=== PATIENT | male | born 1980 | race Caucasian/White ===

== ENCOUNTER → 2016-11-30 | Outpatient (CLI) | payer MEDICARE, OTHER ==
--- NOTE | 2016-11-30 09:20 | XR ---
EXAMINATION TYPE: XR chest 2V DATE OF EXAM: 11/30/2016 9:09 AM COMPARISON: Prior chest x-ray December 10, 2015. HISTORY: Renal cancer. TECHNIQUE: Frontal and lateral views of the chest are obtained. FINDINGS: Improved inspiration is seen on current study. Still somewhat low lung volumes are present. There is no suspicious focal air space opacity, pleural effusion, or pneumothorax seen. Left basila r parenchymal scarring is present. The cardiac silhouette size is within normal limits. Right apical rib anomaly is redemonstrated. Cholecystectomy clips are noted. IMPRESSION: No suspicious acute cardiopulmonary process.
[2016-11-30 09:22] LABS: Blood Urea Nitrogen 12 mg/dL (9-20); Non-African American GFR(MDRD) >60 (>60 ml/min/1.73 sqM)
--- NOTE | 2016-11-30 10:33 | CT ---
EXAMINATION TYPE: CT abdomen w con DATE OF EXAM: 11/30/2016 10:24 AM COMPARISON: CT abdomen and pelvis February 27, 2016 HISTORY: Renal cancer CT DLP: 1436 mGycm, Automated Exposure Control for Dose Reduction was Utilized. CONTRAST: CT scan of the abdomen is performed with oral and with IV Contrast, patient injected with 100 ml mL o f Omnipaque 300. FINDINGS: LUNG BASES: No significant abnormality is appreciated. LIVER/GB: Cholecystectomy clips are redemonstrated. Liver is diffusely low dense suggesting fatty inf iltration.. PANCREAS: No significant abnormality is seen. SPLEEN: No significant abnormality is seen. ADRENALS: No significant abnormality is seen. KIDNEYS: There is no suspicious solid or cystic renal mass on current study. Symmetric cortical medul erin uptake and excretion without evidence of hydronephrosis is evident bilaterally. There is cortica l defect from partial nephrectomy change lower pole level right kidney. BOWEL: Oral contrast reaches level of right colon. There is no suspicious small or large bowel dilata tion seen LYMPH NODES: No greater than 1cm abdominal lymph nodes are appreciated. OSSEOUS STRUCTURES: No significant abnormality is seen. OTHER: No significant additional abnormality is seen. IMPRESSION: Interval treatment of the right lower pole renal neoplasm. No suspicious new mass or timothy opathy is seen to suggest neoplastic recurrence.
== END ==
LOC: RADCTMAIN 08:08
PROVIDERS: ATTEND Urology
DX: C64.1 Malignant neoplasm of right kidney, except renal pelvis (principal)
CPT/HCPCS: 82565; 84520; 71020; 74160; 36415; Q9967

== ENCOUNTER 2017-02-03 14:37 | Emergency (ER) | payer MEDICARE, OTHER ==
[2017-02-03] MEDS ORDERED: SODIUM CHLORIDE 0.9% 1,000 ML IV ONE (15:06)
--- NOTE | 2017-02-03 15:14 | ED ---
Abdominal Pain HPI - General Chief Complaint: Abdominal Pain Stated Complaint: Abd Pain Time Seen by Provider: 02/03/17 14:52 Source: patient, family Mode of arrival: ambulatory Limitations: no limitations - History of Present Illness Initial Comments: This is a 37-year-old male with a history of renal carcinoma, developmental delay and recurrent abdominal pain presents emergency department for central abdominal pain. Going on since yesterday. He is been evaluated for this in the past with unclear etiology. He's also had some nausea and vomiting with it. He states is located in the central abdomen feels a cramping sensation. It seems to be made better with food. Nothing seems to make it worse. He is not currently have any pain. He saw his doctor yesterday who did blood work and sent him home. He's had continued pain and thus is family brought him in the emergency department for evaluation. He states he had a bowel movement earlier today which was normal. Does not complain of any constipation. No dysuria or hematuria. No lightheadedness. He did have an episode of syncope approximately one week ago however also has a history of this. The family thinks that his abdominal pain may be related to anxiety. The patient is going to undergo a new test through his pulmonary physician which he has not completed yet. - Related Data Home Medications Medication Instructions Recorded Confirmed Levothyroxine Sodium [Synthroid] 50 mcg PO DAILY 09/02/14 02/03/17 Omeprazole [PriLOSEC] 20 mg PO AC-BRKFST 02/03/17 02/03/17 Previous Rx's Medication Instructions Recorded Dicyclomine [Bentyl] 10 mg PO QID PRN #20 capsule 02/03/17 Allergies Allergy/AdvReac Type Severity Reaction Status Date / Time No Known Allergies Allergy Verified 02/03/17 15:10 Review of Systems ROS Statement: Those systems with pertinent positive or pertinent negative responses have been documented in the HPI. ROS Other: All systems not noted in ROS Statement are negative. Past Medical History Past Medical History: GERD/Reflux, Memory Impairment, Thyroid Disorder Additional Past Medical History / Comment(s): DEVELOPMENTALLY DELAYED- COGNITIVE FUNCTION AT 11-12 YEAR OLD., MASS RIGHT KIDNEY. History of Any Multi-Drug Resistant Organisms: None Reported Past Surgical History: Cholecystectomy Additional Past Surgical History / Comment(s): unknown abd surgery Past Anesthesia/Blood Transfusion Reactions: No Reported Reaction Past Psychological History: No Psychological Hx Reported Smoking Status: Never smoker Past Alcohol Use History: None Reported Past Drug Use History: None Reported - Past Family History Mother History Unknown: Yes Family Medical History: No Reported History, Unable to Obtain Father Family Medical History: Diabetes Mellitus Additional Family Medical History / Comment(s): neuropathy General Exam - General Exam Comments Initial Comments: Constitutional: Awake alert Appears comfortable Head: Normocephalic atraumatic Eyes: no conjunctival injection No scleral icterus EOMI Neck: No JVD Supple Heart: Tachycardia normal S1-S2 no murmurs Lungs: Clear to auscultation bilaterally No wheezing No rales Abdomen: Soft nondistended nontender Extremities: Non edematous DP pulses intact Radial pulses intact Neuro: A&Ox3 No focal neurologic deficits Psych: Appropriate mood and affect Limitations: no limitations Course Vital Signs 02/03/17 02/03/17 14:48 17:37 Temperature 97 F L 99.0 F Pulse Rate 124 H 95 Respiratory 20 18 Rate Blood Pressure 166/111 133/90 O2 Sat by Pulse 95 95 Oximetry - Reevaluation(s) Reevaluation #1: 02/03/17 16:00 EKG showing sinus tachycardia with a rate of 104. No abnormal ST segment changes or T-wave inversions. QTC is 420. Other intervals are normal. No ectopy. Medical Decision Making - Medical Decision Making Is a 37-year-old male who presented for abdominal cramping. Blood work was reviewed and unremarkable. X-ray did show liquid stool in the colon concerning for diarrhea. Patient had no symptoms on the emergency department. At this time going to send him home on Bentyl. He can follow-up with his primary doctor for further evaluation. I suspected the patient is likely going to start having diarrhea and likely has a viral illness. He can return if he has worsening symptoms or questions are answered. - Lab Data Result diagrams: 02/03/17 16:15 02/03/17 16:15 Lab Results 02/03/17 02/03/17 02/03/17 Range/Units 16:15 16:15 16:45 WBC 9.7 (3.8-10.6) k/uL RBC 5.89 (4.30-5.90) m/uL Hgb 18.5 H (13.0-17.5) gm/dL Hct 54.8 H (39.0-53.0) % MCV 93.0 (80.0-100.0) fL MCH 31.4 (25.0-35.0) pg MCHC 33.8 (31.0-37.0) g/dL RDW 12.8 (11.5-15.5) % Plt Count 256 (150-450) k/uL Neutrophils % 76 % Lymphocytes % 16 % Monocytes % 4 % Eosinophils % 1 % Basophils % 1 % Neutrophils # 7.4 (1.3-7.7) k/uL Lymphocytes # 1.6 (1.0-4.8) k/uL Monocytes # 0.4 (0-1.0) k/uL Eosinophils # 0.1 (0-0.7) k/uL Basophils # 0.1 (0-0.2) k/uL Sodium 145 (137-145) mmol/L Potassium 4.0 (3.5-5.1) mmol/L Chloride 102 (98-107) mmol/L Carbon Dioxide 29 (22-30) mmol/L Anion Gap 14 mmol/L BUN 12 (9-20) mg/dL Creatinine 1.08 (0.66-1.25) mg/dL Est GFR (MDRD) Af Amer >60 (>60 ml/min/1.73 sqM) Est GFR (MDRD) Non-Af >60 (>60 ml/min/1.73 sqM) Glucose 119 H (74-99) mg/dL Calcium 10.0 (8.4-10.2) mg/dL Total Bilirubin 1.0 (0.2-1.3) mg/dL AST 56 (17-59) U/L ALT 75 H (21-72) U/L Alkaline Phosphatase 79 (38-126) U/L Total Protein 8.9 H (6.3-8.2) g/dL Albumin 5.0 (3.5-5.0) g/dL Amylase 46 (30-110) U/L Lipase 66 (23-300) U/L TSH 1.020 (0.465-4.680) mIU/L Urine Color Yellow Urine Appearance Clear (Clear) Urine pH 6.5 (5.0-8.0) Ur Specific [place] 1.016 (1.001-1.035) Urine Protein Trace H (Negative) Urine Glucose (UA) Negative (Negative) Urine Ketones Trace H (Negative) Urine Blood Negative (Negative) Urine Nitrite Negative (Negative) Urine Bilirubin Negative (Negative) Urine Urobilinogen 2.0 (<2.0) mg/dL Ur Leukocyte Esterase Negative (Negative) Disposition Clinical Impression: Abdominal cramping Disposition: HOME SELF-CARE Condition: Stable Instructions: Abdominal Pain (ED) Prescriptions: Dicyclomine [Bentyl] 10 mg PO QID PRN #20 capsule PRN Reason: abdominal cramping Referrals: Gracie Zhao MD [Primary Care Provider] - 1-2 days
[2017-02-03 16:26] LABS: Basophils # (A) 0.1 k/uL (0-0.2); Basophils % (A) 1 %; CH 31.5; Eosinophils # (A) 0.1 k/uL (0-0.7); Eosinophils % (A) 1 %; HCT 54.8 % (39.0-53.0); HDW 2.54; HGB 18.5 gm/dL (13.0-17.5); Luc % (Auto) 1; Lymphocytes # (A) 1.6 k/uL (1.0-4.8); Lymphocytes % (A) 16 %; MCH 31.4 pg (25.0-35.0); MCHC 33.8 g/dL (31.0-37.0); Mean Platelet Volume 6.8; Monocytes # (A) 0.4 k/uL (0-1.0); Monocytes % (A) 4 %; Neutrophils # (A) 7.4 k/uL (1.3-7.7); Neutrophils % (A) 76 %; RBC 5.89 m/uL (4.30-5.90); RDW 12.8 % (11.5-15.5); WBC 9.7 k/uL (3.8-10.6); WBC (Perox) 9.44
[2017-02-03 16:38] LABS: ALT 75 U/L (21-72); AST 56 U/L (17-59); Alkaline Phosphatase 79 U/L (38-126); Amylase 46 U/L (30-110); Anion Gap 14 mmol/L; Blood Urea Nitrogen 12 mg/dL (9-20); Carbon Dioxide 29 mmol/L (22-30); Chloride 102 mmol/L (98-107); Glucose 119 mg/dL (74-99); Non-African American GFR(MDRD) >60 (>60 ml/min/1.73 sqM); Sodium 145 mmol/L (137-145); Total Protein 8.9 g/dL (6.3-8.2)
--- NOTE | 2017-02-03 16:41 | XR ---
EXAMINATION TYPE: XR KUB DATE OF EXAM: 02/03/2017 COMPARISON: 02/27/2016 HISTORY: Abdominal pain TECHNIQUE: 2 views FINDINGS: There are multiple large bowel air-fluid levels. I see no dilated loops. There is no sign o f free air. Lung bases are clear. There are clips from cholecystectomy. There are no pathologic calci fications over the kidneys. IMPRESSION: Large bowel fluid consistent with diarrhea that is new compared to old exam. No free air.
[2017-02-03 17:00] LABS: Appearance,Urine Clear (Clear); Bilirubin,Urine Negative (Negative); Glucose,Urine (UA) Negative (Negative); Ketones,Urine Trace (Negative); Leukocyte Esterase,Urine Negative (Negative); Nitrite,Urine Negative (Negative); PH, Urine 6.5 (5.0-8.0); Protein,Urine Trace (Negative); Specific Gravity,Urine 1.016 (1.001-1.035); UA Billing (MACRO vs. MICRO) CHEM
[2017-02-03 17:38] VITALS: BP 133/90; PULSE 95; RESP 18; TEMP 99
== END 2017-02-03 17:38 | disposition home or self-care (01) ==
LOC: EC 14:37
DX: R10.9 Unspecified abdominal pain (principal); R11.2 Nausea with vomiting, unspecified; R55 Syncope and collapse; K21.9 Gastro-esophageal reflux disease without esophagitis; E07.9 Disorder of thyroid, unspecified; Z79.899 Other long term (current) drug therapy; Z90.49 Acquired absence of other specified parts of digestive tract
CPT/HCPCS: 36415; 74000; 80053; 81003; 82150; 83690; 84443; 85025; 93005; 96360; 99284

== ENCOUNTER 2017-02-08 14:11 | Emergency (ER) | payer MEDICARE, OTHER ==
[2017-02-08] MEDS ORDERED: ONDANSETRON 4 MG/2 ML VIAL IVP STA (15:35)
[2017-02-08] MEDS ORDERED: SODIUM CHLORIDE 0.9% 1,000 ML IV STA (15:35)
--- NOTE | 2017-02-08 15:45 | ED ---
General Adult HPI - General Chief complaint: Abdominal Pain Stated complaint: abdominal pain Time Seen by Provider: 02/08/17 15:25 Source: patient, RN notes reviewed Mode of arrival: ambulatory Limitations: no limitations - History of Present Illness Initial comments: Patient 37-year-old male who presents emergency room today with a chief complaint of abdominal pain. Patient does admit that he does have symptoms of chronic abdominal pain. He states that he has been having increased pain. Does admit that his had decreased appetite. His pain is located in her abdomen worse on the left side. Denies any other complaints or symptoms at this time. - Related Data Home Medications Medication Instructions Recorded Confirmed Levothyroxine Sodium [Synthroid] 50 mcg PO DAILY 09/02/14 02/08/17 Omeprazole [PriLOSEC] 20 mg PO AC-BRKFST 02/03/17 02/08/17 Previous Rx's Medication Instructions Recorded Dicyclomine [Bentyl] 10 mg PO QID PRN #20 capsule 02/03/17 Dicyclomine [Bentyl] 20 mg PO QID #20 tablet 02/08/17 Allergies Allergy/AdvReac Type Severity Reaction Status Date / Time No Known Allergies Allergy Verified 02/08/17 15:36 Review of Systems ROS Statement: Those systems with pertinent positive or pertinent negative responses have been documented in the HPI. ROS Other: All systems not noted in ROS Statement are negative. Past Medical History Past Medical History: GERD/Reflux, Memory Impairment, Thyroid Disorder Additional Past Medical History / Comment(s): DEVELOPMENTALLY DELAYED- COGNITIVE FUNCTION AT 11-12 YEAR OLD., MASS RIGHT KIDNEY. History of Any Multi-Drug Resistant Organisms: None Reported Past Surgical History: Cholecystectomy Additional Past Surgical History / Comment(s): unknown abd surgery Past Anesthesia/Blood Transfusion Reactions: No Reported Reaction Past Psychological History: No Psychological Hx Reported Smoking Status: Never smoker Past Alcohol Use History: None Reported Past Drug Use History: None Reported - Past Family History Mother History Unknown: Yes Family Medical History: No Reported History, Unable to Obtain Father Family Medical History: Diabetes Mellitus Additional Family Medical History / Comment(s): neuropathy General Exam - General Exam Comments Initial Comments: General: The patient is awake and alert, in no distress, and does not appear acutely ill. Eye: Pupils are equal, round and reactive to light, extra-ocular movements are intact. No nystagmus. There is normal conjunctiva bilaterally. No signs of icterus. Ears, nose, mouth and throat: There are moist mucous membranes and no oral lesions. Neck: The neck is supple, there is no tenderness or JVD. Cardiovascular: There is a regular rate and rhythm. No murmur, rub or gallop is appreciated. Respiratory: Lungs are clear to auscultation, respirations are non-labored, breath sounds are equal. No wheezes, stridor, rales, or rhonchi. Gastrointestinal: Bowel sounds present. A Abdomen soft on palpation. Patient does have mild tenderness left side of the abdomen. No rebound tenderness. No guarding. Musculoskeletal: Normal ROM, no tenderness. Strength 5/5. Sensation intact. Pulses equal bilaterally 2+. Neurological: A&O x 3. CN II-XII intact, There are no obvious motor or sensory deficits. Coordination appears grossly intact. Speech is normal. Skin: Skin is warm and dry and no rashes or lesions are noted. Psychiatric: Cooperative, appropriate mood & affect, normal judgment. Limitations: no limitations Course Vital Signs 02/08/17 14:14 Temperature 97.8 F Pulse Rate 108 H Respiratory 20 Rate Blood Pressure 162/90 O2 Sat by Pulse 98 Oximetry Medical Decision Making - Medical Decision Making Patient reexamined at this time and showing no signs of distress. CT is negative for any acute abnormalities. His labs been reviewed. Previous visit to the emergency room results reviewed showing similar findings. CT negative today. Results were discussed with patient. He does admit that symptoms have been chronic. States he has seen GI in the past. Advised to follow-up family doctor and GI. Advised to use previously prescribed medications. They are they 've Bentyl. Advised return for any other concerns. - Lab Data Result diagrams: 02/08/17 15:21 02/08/17 15:21 Lab Results 02/08/17 02/08/17 02/08/17 Range/Units 15:21 15:21 17:45 WBC 7.6 (3.8-10.6) k/uL RBC 5.91 H (4.30-5.90) m/uL Hgb 18.5 H (13.0-17.5) gm/dL Hct 54.7 H (39.0-53.0) % MCV 92.6 (80.0-100.0) fL MCH 31.3 (25.0-35.0) pg MCHC 33.8 (31.0-37.0) g/dL RDW 13.0 (11.5-15.5) % Plt Count 246 (150-450) k/uL Neutrophils % 76 % Lymphocytes % 16 % Monocytes % 5 % Eosinophils % 2 % Basophils % 0 % Neutrophils # 5.8 (1.3-7.7) k/uL Lymphocytes # 1.2 (1.0-4.8) k/uL Monocytes # 0.4 (0-1.0) k/uL Eosinophils # 0.1 (0-0.7) k/uL Basophils # 0.0 (0-0.2) k/uL Sodium 144 (137-145) mmol/L Potassium 4.2 (3.5-5.1) mmol/L Chloride 102 (98-107) mmol/L Carbon Dioxide 30 (22-30) mmol/L Anion Gap 12 mmol/L BUN 15 (9-20) mg/dL Creatinine 1.18 (0.66-1.25) mg/dL Est GFR (MDRD) Af Amer >60 (>60 ml/min/1.73 sqM) Est GFR (MDRD) Non-Af >60 (>60 ml/min/1.73 sqM) Glucose 131 H (74-99) mg/dL Calcium 9.9 (8.4-10.2) mg/dL Total Bilirubin 0.9 (0.2-1.3) mg/dL AST 51 (17-59) U/L ALT 76 H (21-72) U/L Alkaline Phosphatase 72 (38-126) U/L Total Protein 8.6 H (6.3-8.2) g/dL Albumin 4.9 (3.5-5.0) g/dL Amylase 33 (30-110) U/L Lipase 75 (23-300) U/L Urine Color Yellow Urine Appearance Clear (Clear) Urine pH 8.0 (5.0-8.0) Ur Specific [place] 1.046 H (1.001-1.035) Urine Protein Trace H (Negative) Urine Glucose (UA) Negative (Negative) Urine Ketones Negative (Negative) Urine Blood Negative (Negative) Urine Nitrite Negative (Negative) Urine Bilirubin Negative (Negative) Urine Urobilinogen <2.0 (<2.0) mg/dL Ur Leukocyte Esterase Negative (Negative) Disposition Clinical Impression: Abdominal pain Disposition: HOME SELF-CARE Condition: Good Instructions: Abdominal Pain (ED) Additional Instructions: Please use medication as discussed. Please follow-up with GI/family doctor in the next 2 days of symptoms have not improved. Please return to emergency room if the symptoms increase or worsen or for any other concerns. Prescriptions: Dicyclomine [Bentyl] 20 mg PO QID #20 tablet Referrals: Gracie Zhao MD [Primary Care Provider] - 1-2 days Time of Disposition: 18:21
[2017-02-08] MEDS ORDERED: FAMOTIDINE 20 MG/2 ML VIAL IV STA (15:46)
[2017-02-08 16:21] LABS: Basophils % (A) 0 %; CH 31.8; CHCM 34.5; Eosinophils # (A) 0.1 k/uL (0-0.7); Eosinophils % (A) 2 %; HCT 54.7 % (39.0-53.0); HDW 2.53; HGB 18.5 gm/dL (13.0-17.5); Luc # (Auto) 0.08; Luc % (Auto) 1; Lymphocytes # (A) 1.2 k/uL (1.0-4.8); Lymphocytes % (A) 16 %; MCH 31.3 pg (25.0-35.0); MCHC 33.8 g/dL (31.0-37.0); MCV 92.6 fL (80.0-100.0); Monocytes # (A) 0.4 k/uL (0-1.0); Monocytes % (A) 5 %; Neutrophils # (A) 5.8 k/uL (1.3-7.7); Neutrophils % (A) 76 %; RBC 5.91 m/uL (4.30-5.90); WBC 7.6 k/uL (3.8-10.6); WBC (Perox) 8.05
[2017-02-08 16:30] LABS: ALT 76 U/L (21-72); AST 51 U/L (17-59); Alkaline Phosphatase 72 U/L (38-126); Amylase 33 U/L (30-110); Anion Gap 12 mmol/L; Blood Urea Nitrogen 15 mg/dL (9-20); Calcium 9.9 mg/dL (8.4-10.2); Carbon Dioxide 30 mmol/L (22-30); Chloride 102 mmol/L (98-107); Glucose 131 mg/dL (74-99); Non-African American GFR(MDRD) >60 (>60 ml/min/1.73 sqM); Potassium 4.2 mmol/L (3.5-5.1); Sodium 144 mmol/L (137-145); Total Bilirubin 0.9 mg/dL (0.2-1.3); Total Protein 8.6 g/dL (6.3-8.2)
[2017-02-08] MEDS ORDERED: RX INFO: IV CONTRAST WAS GIVEN 1 EACH MISC MISCELLANE PRN (16:56)
--- NOTE | 2017-02-08 17:59 | CT ---
EXAMINATION TYPE: CT abdomen pelvis w con DATE OF EXAM: 02/08/2017 COMPARISON: CT November 30, 2016 HISTORY: Generalized abdominal pain and diarrhea. CT DLP: 1391.20 mGycm. Automated exposure control for dose reduction was used. TECHNIQUE: Helical acquisition of images was performed from the lung bases through the pelvis. CONTRAST: Performed without Oral Contrast and with IV Contrast, patient injected with 100 mL of Omnipaque 300. FINDINGS: LUNG BASES: No significant abnormality is appreciated. LIVER/GB: No significant abnormality is appreciated. PANCREAS: No significant abnormality is seen. SPLEEN: No significant abnormality is seen. ADRENALS: No significant abnormality is seen. KIDNEYS: No significant abnormality is seen. Lower pole right kidney change which was previously note d is redemonstrated without interval change. FREE AIR: No free air is visualized. RETROPERITONEAL ADENOPATHY: None visualized REPRODUCTIVE ORGANS: No significant abnormality is seen URINARY BLADDER: No significant abnormality is seen. PELVIC ADENOPATHY: None visualized. OSSEOUS STRUCTURES: No significant abnormality is seen. BOWEL: No significant abnormality is seen. IMPRESSION: NO ACUTE PROCESS. STABLE APPEARANCE.
[2017-02-08 18:00] LABS: Appearance,Urine Clear (Clear); Bilirubin,Urine Negative (Negative); Glucose,Urine (UA) Negative (Negative); Ketones,Urine Negative (Negative); Leukocyte Esterase,Urine Negative (Negative); Nitrite,Urine Negative (Negative); Protein,Urine Trace (Negative); UA Billing (MACRO vs. MICRO) CHEM; Urobilinogen,Urine <2.0 mg/dL (<2.0)
[2017-02-08 18:21] LABS: Specific Gravity,Urine 1.046 (1.001-1.035)
[2017-02-08 18:33] VITALS: BP 161/96; PULSE 98; RESP 18; TEMP 97.6
== END 2017-02-08 18:33 | disposition home or self-care (01) ==
LOC: EC 14:11 → EEVIPCON 14:11 → EC 18:33
DX: R10.9 Unspecified abdominal pain (principal); G89.29 Other chronic pain; K21.9 Gastro-esophageal reflux disease without esophagitis; E07.9 Disorder of thyroid, unspecified; R62.50 Unspecified lack of expected normal physiological development in childhood; Z79.899 Other long term (current) drug therapy; Z90.49 Acquired absence of other specified parts of digestive tract
CPT/HCPCS: 36415; 80053; 82150; 83690; 85025; 81003; 74177; 99284; 96374; 96375; 96361; J2405; Q9967

== ENCOUNTER 2017-04-18 12:41 | Emergency (ER) | payer MEDICARE, OTHER ==
[2017-04-18] MEDS ORDERED: SODIUM CHLORIDE 0.9% 1,000 ML IV STA (13:03)
--- NOTE | 2017-04-18 13:08 | ED ---
General Adult HPI - General Chief complaint: Abdominal Pain Stated complaint: Abd Pain Time Seen by Provider: 04/18/17 12:57 Source: patient, family, RN notes reviewed, old records reviewed Mode of arrival: ambulatory - History of Present Illness Initial comments: Patient 37-year-old male who presents emergency room today with a chief complaint of lower abdominal pain. He does admit this is been somewhat chronic problem and has been seen GI for this. States been trying Bentyl at home with little relief the symptoms. Patient's father at bedside stating that his had decreased appetite been eating or drinking much over the last 3 days. Patient does admit that this pain is consistent with pain that is had in the past. Admits nausea vomiting and diarrhea. Denies any other complaints or associated symptoms at this time. Patient denies any recent fever, chills, shortness of breath, chest pain, back pain, abdominal pain, nausea or vomiting, numbness or tingling, dysuria or hematuria, constipation or diarrhea, headaches or visual changes, or any other complaints. - Related Data Home Medications Medication Instructions Recorded Confirmed Levothyroxine Sodium [Synthroid] 50 mcg PO DAILY 09/02/14 04/18/17 Omeprazole [PriLOSEC] 20 mg PO AC-BRKFST 02/03/17 04/18/17 Previous Rx's Medication Instructions Recorded Dicyclomine [Bentyl] 20 mg PO QID #20 tablet 02/08/17 Ondansetron Odt [Zofran ODT] 4 mg PO Q8HR PRN #20 tab 04/18/17 Allergies Allergy/AdvReac Type Severity Reaction Status Date / Time No Known Allergies Allergy Verified 04/18/17 13:11 Review of Systems ROS Statement: Those systems with pertinent positive or pertinent negative responses have been documented in the HPI. ROS Other: All systems not noted in ROS Statement are negative. Past Medical History Past Medical History: Cancer, GERD/Reflux, Memory Impairment, Thyroid Disorder Additional Past Medical History / Comment(s): DEVELOPMENTALLY DELAYED- COGNITIVE FUNCTION AT 11-12 YEAR OLD., MASS RIGHT KIDNEY. History of Any Multi-Drug Resistant Organisms: None Reported Past Surgical History: Cholecystectomy Additional Past Surgical History / Comment(s): unknown abd surgery kidney surg Past Anesthesia/Blood Transfusion Reactions: No Reported Reaction Past Psychological History: No Psychological Hx Reported Smoking Status: Never smoker Past Alcohol Use History: None Reported Past Drug Use History: None Reported - Past Family History Mother History Unknown: Yes Family Medical History: No Reported History, Unable to Obtain Father Family Medical History: Diabetes Mellitus Additional Family Medical History / Comment(s): neuropathy General Exam - General Exam Comments Initial Comments: General: The patient is awake and alert, in no distress, and does not appear acutely ill. Eye: Pupils are equal, round and reactive to light, extra-ocular movements are intact. No nystagmus. There is normal conjunctiva bilaterally. No signs of icterus. Ears, nose, mouth and throat: There are moist mucous membranes and no oral lesions. Neck: The neck is supple, there is no tenderness or JVD. Cardiovascular: There is a regular rate and rhythm. No murmur, rub or gallop is appreciated. Respiratory: Lungs are clear to auscultation, respirations are non-labored, breath sounds are equal. No wheezes, stridor, rales, or rhonchi. Gastrointestinal: Soft, non-distended, non-tender abdomen without masses or organomegaly noted. There is no rebound or guarding present. No CVA tenderness. Bowel sounds are unremarkable. Musculoskeletal: Normal ROM, no tenderness. Strength 5/5. Sensation intact. Pulses equal bilaterally 2+. Neurological: A&O x 3. CN II-XII intact, There are no obvious motor or sensory deficits. Coordination appears grossly intact. Speech is normal. Skin: Skin is warm and dry and no rashes or lesions are noted. Psychiatric: Cooperative, appropriate mood & affect, normal judgment. Course Vital Signs 04/18/17 04/18/17 12:44 13:23 Temperature 98.8 F Pulse Rate 105 H 99 Respiratory 18 20 Rate Blood Pressure 147/109 139/91 O2 Sat by Pulse 96 99 Oximetry Medical Decision Making - Medical Decision Making Patient reexamined at this time shows no signs of distress resting comfortably in the stretcher. His labs been reviewed mildly elevated liver enzyme. Patient previously labs shows of this. Patient was seen here in the emergency room on February [address] of the abdomen and pelvis for the same pain at that time which was negative for any acute abnormalities. Patient's remaining labs been reviewed no elevated white count. No fever. Patient resting comfortably at this time. Does have a pineapple plantation manager that they plan on following up with. Advised close follow-up over the next 2 days or return to emergency room if any symptoms increase or worsen or for any other concerns. - Lab Data Result diagrams: 04/18/17 13:14 04/18/17 13:14 Lab Results 04/18/17 04/18/17 04/18/17 Range/Units 13:14 13:14 13:20 WBC 7.8 (3.8-10.6) k/uL RBC 5.97 H (4.30-5.90) m/uL Hgb 18.7 H (13.0-17.5) gm/dL Hct 55.2 H (39.0-53.0) % MCV 92.5 (80.0-100.0) fL MCH 31.3 (25.0-35.0) pg MCHC 33.8 (31.0-37.0) g/dL RDW 14.3 (11.5-15.5) % Plt Count 255 (150-450) k/uL Neutrophils % 72 % Lymphocytes % 20 % Monocytes % 4 % Eosinophils % 2 % Basophils % 1 % Neutrophils # 5.6 (1.3-7.7) k/uL Lymphocytes # 1.5 (1.0-4.8) k/uL Monocytes # 0.3 (0-1.0) k/uL Eosinophils # 0.2 (0-0.7) k/uL Basophils # 0.1 (0-0.2) k/uL Sodium 142 (137-145) mmol/L Potassium 4.4 (3.5-5.1) mmol/L Chloride 104 (98-107) mmol/L Carbon Dioxide 24 (22-30) mmol/L Anion Gap 14 mmol/L BUN 13 (9-20) mg/dL Creatinine 1.06 (0.66-1.25) mg/dL Est GFR (MDRD) Af Amer >60 (>60 ml/min/1.73 sqM) Est GFR (MDRD) Non-Af >60 (>60 ml/min/1.73 sqM) Glucose 107 H (74-99) mg/dL Calcium 9.5 (8.4-10.2) mg/dL Total Bilirubin 1.4 H (0.2-1.3) mg/dL AST 54 (17-59) U/L ALT 92 H (21-72) U/L Alkaline Phosphatase 78 (38-126) U/L Total Protein 8.2 (6.3-8.2) g/dL Albumin 4.7 (3.5-5.0) g/dL Amylase <30 L (30-110) U/L Lipase 75 (23-300) U/L Urine Color Yellow Urine Appearance Clear (Clear) Urine pH 6.5 (5.0-8.0) Ur Specific [place] 1.021 (1.001-1.035) Urine Protein 1+ H (Negative) Urine Glucose (UA) Negative (Negative) Urine Ketones 1+ H (Negative) Urine Blood Negative (Negative) Urine Nitrite Negative (Negative) Urine Bilirubin Negative (Negative) Urine Urobilinogen 6.0 (<2.0) mg/dL Ur Leukocyte Esterase Negative (Negative) Urine RBC 1 (0-5) /hpf Urine WBC 1 (0-5) /hpf Urine Mucus Rare H (None) /hpf Disposition Clinical Impression: Abdominal pain Disposition: HOME SELF-CARE Condition: Good Instructions: Abdominal Pain (ED) Additional Instructions: Please follow-up the family doctor or pineapple plantation manager over the next 1-2 days. Please return to emergency room if any symptoms increase or worsen or for any other concerns. Prescriptions: Ondansetron Odt [Zofran ODT] 4 mg PO Q8HR PRN #20 tab PRN Reason: Nausea Referrals: Gracie Zhao MD [Primary Care Provider] - 1-2 days Yaritza Paul MD [STAFF PHYSICIAN] - 1-2 days Time of Disposition: 14:11
[2017-04-18] MEDS ORDERED: HYDROmorphone 1 MG/ML 1 ML SYRINGE IVP STA (13:17)
[2017-04-18] MEDS ORDERED: ONDANSETRON 4 MG/2 ML VIAL IVP STA (13:17)
[2017-04-18 13:26] LABS: Basophils # (A) 0.1 k/uL (0-0.2); Basophils % (A) 1 %; CH 32.1; CHCM 34.9; Eosinophils # (A) 0.2 k/uL (0-0.7); Eosinophils % (A) 2 %; HCT 55.2 % (39.0-53.0); HDW 2.59; HGB 18.7 gm/dL (13.0-17.5); Luc # (Auto) 0.14; Luc % (Auto) 2; Lymphocytes # (A) 1.5 k/uL (1.0-4.8); Lymphocytes % (A) 20 %; MCH 31.3 pg (25.0-35.0); MCHC 33.8 g/dL (31.0-37.0); MCV 92.5 fL (80.0-100.0); Mean Platelet Volume 7.3; Monocytes # (A) 0.3 k/uL (0-1.0); Monocytes % (A) 4 %; Neutrophils # (A) 5.6 k/uL (1.3-7.7); Neutrophils % (A) 72 %; RBC 5.97 m/uL (4.30-5.90); RDW 14.3 % (11.5-15.5); WBC 7.8 k/uL (3.8-10.6); WBC (Perox) 7.61
[2017-04-18 13:37] LABS: ALT 92 U/L (21-72); AST 54 U/L (17-59); Alkaline Phosphatase 78 U/L (38-126); Amylase <30 U/L (30-110); Anion Gap 14 mmol/L; Blood Urea Nitrogen 13 mg/dL (9-20); Calcium 9.5 mg/dL (8.4-10.2); Carbon Dioxide 24 mmol/L (22-30); Chloride 104 mmol/L (98-107); Glucose 107 mg/dL (74-99); Non-African American GFR(MDRD) >60 (>60 ml/min/1.73 sqM); Potassium 4.4 mmol/L (3.5-5.1); Sodium 142 mmol/L (137-145); Total Bilirubin 1.4 mg/dL (0.2-1.3); Total Protein 8.2 g/dL (6.3-8.2)
[2017-04-18 13:39] VITALS: RESP 20
[2017-04-18 13:39] LABS: Appearance,Urine Clear (Clear); Bilirubin,Urine Negative (Negative); Glucose,Urine (UA) Negative (Negative); Ketones,Urine 1+ (Negative); Leukocyte Esterase,Urine Negative (Negative); Mucus,Urine Rare /hpf; Nitrite,Urine Negative (Negative); PH, Urine 6.5 (5.0-8.0); Particle Count 1601; Protein,Urine 1+ (Negative); RBC,Urine 1 /hpf (0-5); Specific Gravity,Urine 1.021 (1.001-1.035); UA Billing (MACRO vs. MICRO) MICRO; WBC,Urine 1 /hpf (0-5)
--- NOTE | 2017-04-18 14:00 | XR ---
Abdomen HISTORY: Pain and nausea, diarrhea Frontal view of the abdomen on 2 images correlated to prior abdomen 02/03/2017 There is no evident bowel obstruction or pneumoperitoneum. Surgical clips are present in the right up per quadrant. Air-fluid levels are again noted. Lung bases are clear. IMPRESSION: Stable exam. Correlate for enteritis or ileus.
[2017-04-18 14:33] VITALS: BP 128/83; PULSE 96; TEMP 98
== END 2017-04-18 14:33 | disposition home or self-care (01) ==
LOC: EC 12:41
DX: R10.30 Lower abdominal pain, unspecified (principal); R11.2 Nausea with vomiting, unspecified; R19.7 Diarrhea, unspecified; K21.9 Gastro-esophageal reflux disease without esophagitis; E07.9 Disorder of thyroid, unspecified; C80.1 Malignant (primary) neoplasm, unspecified; Z90.49 Acquired absence of other specified parts of digestive tract; Z98.890 Other specified postprocedural states; Z79.899 Other long term (current) drug therapy
CPT/HCPCS: 99284 ×2; 96374 ×2; 96375 ×2; 96361 ×2; 36415; 80053; 82150; 83690; 85025; 81001; 74000; J2405; J1170

== ENCOUNTER 2017-05-06 09:34 | Day surgery (SDC) | payer MEDICARE, OTHER ==
[2017-05-05 08:42] VITALS: BMI 26.2
[~2017-05-06 09:34] MED LIST: DEXAMETHASONE SOD PHOSPHATE 10 MG/ML 1 ML VIAL IV ONE; HYDROmorphone 1 MG/ML 1 ML SYRINGE IVP PRN; LACTATED RINGERS 1,000 ML IV SCH; LIDOCAINE 1% 20 ML VIAL (10MG/ML) FOR IV START INTRADERMA PRN; MIDAZOLAM 2 MG/2 ML VIAL IV PRN; ONDANSETRON 4 MG/2 ML VIAL IVP ONE; SCOPOLAMINE 1.5MG/72HR PATCH TRANSDERM ONE
[2017-05-06] MEDS ORDERED: MIDAZOLAM 2 MG/2 ML VIAL ONE (10:37)
[2017-05-06] MEDS ORDERED: PROPOFOL 10 MG/ML 20 ML VIAL IV ONE (10:37)
[2017-05-06] MEDS ORDERED: LIDOCAINE 1% INJ 10MG/ML (20 ML MDV) ONE (10:37)
[2017-05-06 10:38] VITALS: RESP 16; TEMP 97.2
--- NOTE | 2017-05-06 10:58 | P.PCN ---
Date of Procedure: 05/06/17 Preoperative Diagnosis: Postoperative Diagnosis: Procedure(s) Performed: Brief history: Patient is a pleasant 37-year-old white male, scheduled for an elective upper endoscopy as well as colonoscopy as a part of evaluation of abdominal pain, for the last several years duration. Pain is mostly in the periampullary area and occasional epigastric area and lasts for 2-3 hours and gradually resolves. He was started on Bentyl without much help. He was treated with Prilosec in the past with no resolution of his symptoms. He has noticed some change in bowel habits also. He is hence scheduled for endoscopy workup today. Procedure performed: Esophagogastroduodenoscopy with biopsy Colonoscopy with biopsy Preoperative diagnosis: Abdominal pain Change in bowel habits Anesthesia: MAC Procedure: After informed consent was obtained from the patient was brought into the endoscopy unit and IV sedation was administered by anesthesia under continuous monitoring. Initially upper endoscopy was done. The Olympus GF 160 video endoscope was inserted inserted into the mouth and esophagus intubated without any difficulty and was gradually advanced into the stomach and duodenum and carefully examined. The bulb and second part of the duodenum appeared normal. Biopsies were done from this area to rule out celiac disease. The scope was then withdrawn into the stomach adequately insufflated with air and upon careful examination the antrum and body, had diffuse gastritis and biopsies were done from this area. The cardia and fundus appeared normal. The scope was then withdrawn into the esophagus. The GE junction was located at 40 cm to the incisors. It appeared regular with no erythema erosions or ulcerations. Rest of the esophagus appeared normal. Patient tolerated the procedure well. At this time the patient continued to remain sedation. Initial digital rectal examination was normal. Olympus CF 160 video colonoscope was then inserted into the rectum and gradually advanced to the cecum without any difficulty. Careful examination was performed as the scope was gradually being withdrawn. The prep was excellent. The cecum, ascending colon, transverse colon, descending colon, sigmoid colon and rectum appeared normal. Random biopsies were done from the ascending and descending colon to rule out microscopic/ collagenous colitis. Retroflexion was performed in the rectum and small internal hemorrhoids were noted. Patient tolerated the procedure well. Impression: 1. Upper endoscopy revealed mild diffuse gastritis but no evidence of esophagitis or peptic ulcer disease 2.. Colonoscopy was essentially within normal limits with no evidence of colitis or colorectal neoplasia. Recommendations: Findings of this examination were discussed with the patient as well as his family. He was advised to follow with the biopsy results. He'll be seen in the office in 2-3 weeks. Implants: Indications for Procedure: Operative Findings: Description of Procedure:
[2017-05-06 11:18] LABS: ALT 84 U/L (21-72); AST 58 U/L (17-59); Alkaline Phosphatase 72 U/L (38-126); Bilirubin, Delta 0.4 mg/dL (0.0-0.2); Total Bilirubin 1.2 mg/dL (0.2-1.3); Total Protein 8.4 g/dL (6.3-8.2)
[2017-05-06 11:19] VITALS: BP 138/97; PULSE 100
[2017-05-06 11:47] LABS: Hepatitis B Surface Ag Index 0.07
[2017-05-06 11:52] LABS: Hepatitis B Core IgM Index 0.02
[2017-05-06 12:04] LABS: Hepatitis C Virus IgG Ab Negative (Negative); Hepatitis C Virus IgG Index 0.05
== END 2017-05-06 11:47 | disposition home or self-care (01) ==
LOC: ORWHC2ENDO 09:34
PROVIDERS: ATTEND Internal Medicine Gastroenterology
DX: K29.70 Gastritis, unspecified, without bleeding (principal); R19.4 Change in bowel habit; K21.9 Gastro-esophageal reflux disease without esophagitis; E07.9 Disorder of thyroid, unspecified; R62.50 Unspecified lack of expected normal physiological development in childhood; Z79.899 Other long term (current) drug therapy
CPT/HCPCS: 88305; 80076; 80074; 88342; 45380; 43239; J2250; J2001; J2704

== ENCOUNTER → 2017-06-07 | Outpatient (CLI) | payer MEDICARE, OTHER ==
--- NOTE | 2017-06-07 09:25 | US ---
EXAMINATION TYPE: US abdomen complete DATE OF EXAM: 06/07/2017 COMPARISON: NONE CLINICAL HISTORY: 37-year-old male with abdominal Pain R10.9. Patient is poor historian, cholecystect mityz. TECHNIQUE: Multiple sonographic images of the abdomen are obtained. FINDINGS: [employer]ER NOTES: limited exam due to bowel gas and patient limitations, see notes above in the h istory. Liver Length: 16.5 cm Gallbladder Wall: Surgically absent CBD: 5.8 mm Spleen: 11.2 cm Right Kidney: 9.5 x 4.3 x 5.6 cm Left Kidney: 10.6 x 3.9 x 5.0 cm Pancreas: unable to see due to bowel gas Liver: limited intercostal views show increased echogenicity relative to the adjacent right kidney. Gallbladder: Surgically absent Evidence for sonographic Villatoro's sign: no CBD: Upper limits of normal in caliber which is expected given postcholecystectomy status. Spleen: wnl Right Kidney: No hydronephrosis Left Kidney: limited view due to reason stated above. No evident hydronephrosis. Upper IVC: Suboptimal visualization Abd Aorta: limited due to bowel gas IMPRESSION: 1. Exam limitations as above. The limited intercostal views of the liver show underlying hepatic stea tosis. Correlate with LFTs, profile, and patient risk factors. 2. Status post cholecystectomy. Bile duct is normal caliber given postcholecystectomy status (5.8 mm) .
== END | disposition home or self-care (01) ==
LOC: RADUSWWP 08:23
PROVIDERS: ATTEND Internal Medicine Gastroenterology
DX: K76.0 Fatty (change of) liver, not elsewhere classified (principal); Z90.49 Acquired absence of other specified parts of digestive tract
CPT/HCPCS: 76700

== ENCOUNTER 2017-06-17 08:56 | Emergency (ER) | payer MEDICARE, OTHER ==
[2017-06-17 09:02] VITALS: RESP 18
[2017-06-17] MEDS ORDERED: DICYCLOMINE 10 MG/ML 2 ML AMP IM STA (09:09)
[2017-06-17] MEDS ORDERED: SODIUM CHLORIDE 0.9% 1,000 ML IV STA (09:09)
--- NOTE | 2017-06-17 09:14 | ED ---
General Adult HPI - General Chief complaint: Abdominal Pain Stated complaint: ABDOMINAL PAIN, DIZZINESS, SHAKING Time Seen by Provider: 06/17/17 09:04 Source: patient, RN notes reviewed Mode of arrival: wheelchair Limitations: no limitations - History of Present Illness Initial comments: 37-year-old male presents to the emergency Department chief complaint of lower abdominal cramping. Patient has had cramping in his abdomen ever since lunch yesterday with ham sandwich. They state that he is complaining that he just kind of feels off today and he complains of abdominal pain. They state there has been some loose stool. There is no vomiting. They state that he has been told in the past that he possibly is increasing bowel syndrome. The family is a poor historian as well as patient. Patient denies any chest pain or shortness of breath. He states that he just feels off and his abdomen is causing him some pain. Patient denies any recent fever, chills, shortness of breath, chest pain, back pain, nausea vomiting, numbness or tingling, dysuria or hematuria, constipation, headaches or visual changes, or any other current symptoms. - Related Data Home Medications Medication Instructions Recorded Confirmed Levothyroxine Sodium [Synthroid] 50 mcg PO DAILY 09/02/14 06/17/17 Omeprazole [PriLOSEC] 20 mg PO AC-[id number] 02/03/17 06/17/17 Dicyclomine [Bentyl] 20 mg PO TID 06/17/17 06/17/17 Ergocalciferol [Vitamin D2] 50,000 unit PO TINOCO 06/17/17 06/17/17 Previous Rx's Medication Instructions Recorded Dicyclomine [Bentyl] 10 mg PO TID #20 capsule 06/17/17 Ondansetron Odt [Zofran ODT] 4 mg PO Q8HR PRN #20 tab 06/17/17 Allergies Allergy/AdvReac Type Severity Reaction Status Date / Time No Known Allergies Allergy Verified 06/17/17 09:15 Review of Systems ROS Statement: Those systems with pertinent positive or pertinent negative responses have been documented in the HPI. ROS Other: All systems not noted in ROS Statement are negative. 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 ABDOMINAL PAIN , KIDNEY CANCER History of Any Multi-Drug Resistant Organisms: None Reported Past Surgical History: Cholecystectomy Additional Past Surgical History / Comment(s): KIDNEY SURGERY-MASS REMOVED Past Anesthesia/Blood Transfusion Reactions: Previous Problems w/ Anesthesia Additional Past Anesthesia/Blood Transfusion Reaction / Comment(s): DIFFICULT INTUBATION - WILL BRING LETTER Past Psychological History: No Psychological Hx Reported Smoking Status: Never smoker Past Alcohol Use History: None Reported Past Drug Use History: None Reported - Past Family History Mother History Unknown: Yes Family Medical History: No Reported History Father Family Medical History: Diabetes Mellitus Additional Family Medical History / Comment(s): neuropathy General Exam - General Exam Comments Initial Comments: General: The patient is awake and alert, in no distress, and does not appear acutely ill. Eye: Pupils are equal, round and reactive to light, extra-ocular movements are intact; there is normal conjunctiva bilaterally. No signs of icterus. Ears, nose, mouth and throat: There are moist mucous membranes and no oral lesions. Neck: The neck is supple, there is no tenderness. Cardiovascular: There is a regular rate and rhythm. No murmur, rub or gallop is appreciated. Respiratory: Lungs are clear to auscultation, respirations are non-labored, breath sounds are equal. No wheezes, stridor, rales, or rhonchi. Gastrointestinal: Soft, non-distended, non-tender abdomen without masses or organomegaly noted. There is no rebound or guarding present. No CVA tenderness. Bowel sounds are unremarkable. Back: There is no tenderness to palpation in the midline. There is no obvious deformity. No rashes noted. Musculoskeletal: Normal ROM, no tenderness, There is no pedal edema. There is no calf tenderness or swelling. Sensation intact. Pulses equal bilaterally 2+. Neurological: CN II-XII intact, There are no obvious motor or sensory deficits. Coordination appears grossly intact. Speech is normal. Skin: Skin is warm and dry and no rashes or lesions are noted. Psychiatric: Cooperative, appropriate mood & affect, normal judgment. Limitations: no limitations Course Vital Signs 06/17/17 08:57 Temperature 97.8 F Pulse Rate 100 Respiratory 18 Rate Blood Pressure 154/97 O2 Sat by Pulse 97 Oximetry Medical Decision Making - Medical Decision Making 37-year-old male presents emergency room chief complaint of abdominal pain. At this time patient is in the room and resting comfortably. Imaging and lab work is been reviewed. This time we discussed patient's symptoms and results are consistent with possible enteritis. We did discuss other etiologies however. We discussed return parameters and follow-up and all the questions. He stated he understood and they are in agreement this plan. They'll be discharged. - Lab Data Result diagrams: 06/17/17 09:55 06/17/17 09:55 Lab Results 06/17/17 06/17/17 06/17/17 Range/Units 09:55 09:55 11:04 WBC 6.3 (3.8-10.6) k/uL RBC 5.30 (4.30-5.90) m/uL Hgb 16.4 (13.0-17.5) gm/dL Hct 48.4 (39.0-53.0) % MCV 91.2 (80.0-100.0) fL MCH 31.0 (25.0-35.0) pg MCHC 34.0 (31.0-37.0) g/dL RDW 12.6 (11.5-15.5) % Plt Count 222 (150-450) k/uL Neutrophils % 75 % Lymphocytes % 15 % Monocytes % 5 % Eosinophils % 3 % Basophils % 1 % Neutrophils # 4.8 (1.3-7.7) k/uL Lymphocytes # 1.0 (1.0-4.8) k/uL Monocytes # 0.3 (0-1.0) k/uL Eosinophils # 0.2 (0-0.7) k/uL Basophils # 0.0 (0-0.2) k/uL Sodium 140 (137-145) mmol/L Potassium 4.2 (3.5-5.1) mmol/L Chloride 102 (98-107) mmol/L Carbon Dioxide 28 (22-30) mmol/L Anion Gap 10 mmol/L BUN 9 (9-20) mg/dL Creatinine 1.08 (0.66-1.25) mg/dL Est GFR (MDRD) Af Amer >60 (>60 ml/min/1.73 sqM) Est GFR (MDRD) Non-Af >60 (>60 ml/min/1.73 sqM) Glucose 92 (74-99) mg/dL Calcium 9.0 (8.4-10.2) mg/dL Total Bilirubin 0.7 (0.2-1.3) mg/dL AST 43 (17-59) U/L ALT 68 (21-72) U/L Alkaline Phosphatase 68 (38-126) U/L Total Protein 7.4 (6.3-8.2) g/dL Albumin 4.2 (3.5-5.0) g/dL Amylase <30 L (30-110) U/L Lipase 39 (23-300) U/L Urine Color Light Yellow Urine Appearance Clear (Clear) Urine pH 7.0 (5.0-8.0) Ur Specific [place] 1.003 (1.001-1.035) Urine Protein Negative (Negative) Urine Glucose (UA) Negative (Negative) Urine Ketones Negative (Negative) Urine Blood Negative (Negative) Urine Nitrite Negative (Negative) Urine Bilirubin Negative (Negative) Urine Urobilinogen <2.0 (<2.0) mg/dL Ur Leukocyte Esterase Negative (Negative) - Radiology Data Radiology results: report reviewed, image reviewed Disposition Clinical Impression: Abdominal pain Disposition: HOME SELF-CARE Condition: Stable Instructions: Abdominal Pain (ED) Additional Instructions: Please use medication as discussed. Please follow up with family doctor if symptoms have not improved over the next two days. Please return to the emergency room if your symptoms increase or worsen or for any other concerns. Prescriptions: Dicyclomine [Bentyl] 10 mg PO TID #20 capsule Ondansetron Odt [Zofran ODT] 4 mg PO Q8HR PRN #20 tab PRN Reason: Nausea Referrals: Gracie Zhao MD [Primary Care Provider] - 1-2 days Time of Disposition: 11:34
[2017-06-17 10:09] LABS: Basophils % (A) 1 %; CH 31.3; CHCM 34.4; Eosinophils # (A) 0.2 k/uL (0-0.7); Eosinophils % (A) 3 %; HCT 48.4 % (39.0-53.0); HDW 2.58; HGB 16.4 gm/dL (13.0-17.5); Luc # (Auto) 0.09; Luc % (Auto) 1; Lymphocytes % (A) 15 %; MCV 91.2 fL (80.0-100.0); Mean Platelet Volume 6.8; Monocytes # (A) 0.3 k/uL (0-1.0); Monocytes % (A) 5 %; Neutrophils # (A) 4.8 k/uL (1.3-7.7); Neutrophils % (A) 75 %; RDW 12.6 % (11.5-15.5); WBC 6.3 k/uL (3.8-10.6); WBC (Perox) 5.84
[2017-06-17 10:13] LABS: ALT 68 U/L (21-72); AST 43 U/L (17-59); Alkaline Phosphatase 68 U/L (38-126); Amylase <30 U/L (30-110); Anion Gap 10 mmol/L; Blood Urea Nitrogen 9 mg/dL (9-20); Carbon Dioxide 28 mmol/L (22-30); Chloride 102 mmol/L (98-107); Glucose 92 mg/dL (74-99); Non-African American GFR(MDRD) >60 (>60 ml/min/1.73 sqM); Potassium 4.2 mmol/L (3.5-5.1); Sodium 140 mmol/L (137-145); Total Bilirubin 0.7 mg/dL (0.2-1.3); Total Protein 7.4 g/dL (6.3-8.2)
--- NOTE | 2017-06-17 11:09 | XR ---
EXAMINATION TYPE: XR abdomen 2V DATE OF EXAM: 06/17/2017 CLINICAL DATA: 37 year-old male lower stomach pain with diarrhea, [facility] COMPARISON: 04/18/2017 FINDINGS: Lung bases are clear. No evidence for free intraperitoneal air. No dilated small bowel. There are air-fluid levels within the right hemicolon. No abnormal colonic di latation. Cholecystectomy clips. Pelvic phlebolith are unchanged. IMPRESSION: 1. No evidence of bowel obstruction or free intraperitoneal air. 2. Air-fluid levels in the right hemicolon. Correlate for enteritis or regional ileus.
[2017-06-17 11:22] LABS: Appearance,Urine Clear (Clear); Bilirubin,Urine Negative (Negative); Glucose,Urine (UA) Negative (Negative); Ketones,Urine Negative (Negative); Leukocyte Esterase,Urine Negative (Negative); Nitrite,Urine Negative (Negative); Protein,Urine Negative (Negative); Specific Gravity,Urine 1.003 (1.001-1.035); UA Billing (MACRO vs. MICRO) CHEM; Urobilinogen,Urine <2.0 mg/dL (<2.0)
[2017-06-17 12:04] VITALS: BP 142/91; PULSE 90; TEMP 97.9
== END 2017-06-17 11:45 | disposition home or self-care (01) ==
LOC: EC 08:56
DX: R10.30 Lower abdominal pain, unspecified (principal); R42 Dizziness and giddiness; K21.9 Gastro-esophageal reflux disease without esophagitis; E07.9 Disorder of thyroid, unspecified; Z85.528 Personal history of other malignant neoplasm of kidney; Z90.49 Acquired absence of other specified parts of digestive tract; Z79.899 Other long term (current) drug therapy
CPT/HCPCS: 99284 ×2; 96372 ×2; 96360 ×2; 36415; 80053; 82150; 83690; 85025; 81003; 74020; J0500

== ENCOUNTER → 2017-11-01 | Outpatient (CLI) | payer MEDICARE, OTHER ==
[2017-11-01 13:08] LABS: Albumin 4.6 g/dL (3.5-5.0); Bilirubin, Delta 0.3 mg/dL (0.0-0.2); Bilirubin,Unconjugated 0.4 mg/dL (0.0-1.1); Total Bilirubin 0.7 mg/dL (0.2-1.3); Total Protein 7.8 g/dL (6.3-8.2)
== END | disposition home or self-care (01) ==
LOC: LABWHC1 12:23
PROVIDERS: ATTEND Physician Assistant
DX: R94.5 Abnormal results of liver function studies (principal)
CPT/HCPCS: 36415; 80076

== ENCOUNTER 2017-11-04 20:39 | Emergency (ER) | payer MEDICARE, OTHER ==
[2017-11-04] MEDS ORDERED: MECLIZINE 12.5 MG TAB PO STA (21:25)
[2017-11-04] MEDS ORDERED: SODIUM CHLORIDE 0.9% 500 ML IV ONE (21:25)
--- NOTE | 2017-11-04 21:28 | ED ---
Dizziness HPI - General Chief Complaint: Dizziness Stated Complaint: lightheaded Time Seen by Provider: 11/04/17 21:16 Source: patient, family Mode of arrival: ambulatory Limitations: no limitations - History of Present Illness Initial Comments: 37 year-old male patient presents with father for evaluation after experiencing dizziness for the last 2-3 hours. Patient states that he was at a hockey game when he started to feel dizzy. Patient states that he feels as though he is spinning around. States he feels very lightheaded. States that he did have similar episode a couple of weeks ago. Did see his doctor was started on some blood pressure medication, he is unable to recall the name of the medication. He states that sometimes in the morning when he stands up he becomes dizzy. He is also reporting a mild frontal headache. He denies any shortness of breath or chest pain with this. Denies any ear pain, nasal congestion, cough, or sore throat. He denies any abdominal pain, nausea, or vomiting with this. Patient denies any recent rash, fever, chills, back pain, numbness, tingling, dizziness , weakness, hematuria, dysuria, urinary urgency, urinary frequency, headache, visual changes, or any other complaints. - Related Data Home Medications Medication Instructions Recorded Confirmed Levothyroxine Sodium [Synthroid] 50 mcg PO DAILY 09/02/14 11/04/17 Omeprazole [PriLOSEC] 20 mg PO DAILY 02/03/17 11/04/17 Cholecalciferol [Vitamin D3] 1,000 unit PO DAILY 11/04/17 11/04/17 Metoprolol Tartrate [Lopressor] 12.5 mg PO BID 11/04/17 11/04/17 Allergies Allergy/AdvReac Type Severity Reaction Status Date / Time No Known Allergies Allergy Verified 11/04/17 21:45 Review of Systems ROS Statement: Those systems with pertinent positive or pertinent negative responses have been documented in the HPI. ROS Other: All systems not noted in ROS Statement are negative. 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 ABDOMINAL PAIN , KIDNEY CANCER History of Any Multi-Drug Resistant Organisms: None Reported Past Surgical History: Cholecystectomy Additional Past Surgical History / Comment(s): KIDNEY SURGERY-MASS REMOVED Past Anesthesia/Blood Transfusion Reactions: Previous Problems w/ Anesthesia Additional Past Anesthesia/Blood Transfusion Reaction / Comment(s): DIFFICULT INTUBATION - WILL BRING LETTER Past Psychological History: No Psychological Hx Reported Smoking Status: Never smoker Past Alcohol Use History: None Reported Past Drug Use History: None Reported - Past Family History Mother History Unknown: Yes Family Medical History: No Reported History Father Family Medical History: Diabetes Mellitus Additional Family Medical History / Comment(s): neuropathy General Exam Limitations: no limitations General appearance: alert, in no apparent distress, other (Physical well- developed, well-nourished male patient in no acute distress. Vital signs upon presentation are pulse 181, respirations 18, blood pressure 173/93, pulse ox 98 % on room air.) Eye exam: Present: normal appearance, PERRL, EOMI. Absent: scleral icterus, conjunctival injection, nystagmus, periorbital swelling ENT exam: Present: normal exam, normal oropharynx, mucous membranes moist Respiratory exam: Present: normal lung sounds bilaterally. Absent: respiratory distress, wheezes, rales, rhonchi, stridor Cardiovascular Exam: Present: regular rate, normal rhythm, normal heart sounds. Absent: systolic murmur, diastolic murmur, rubs, gallop, clicks GI/Abdominal exam: Present: soft, normal bowel sounds. Absent: distended, tenderness, guarding, rebound, rigid Neurological exam: Present: alert, oriented X3, CN II-XII intact, other ( Strength in all 4 extremities is 5/5) Psychiatric exam: Present: normal affect, normal mood Skin exam: Present: warm, dry, intact, normal color. Absent: rash Course Vital Signs 11/04/17 11/04/17 11/04/17 20:59 22:00 22:45 Temperature Pulse Rate 81 90 Pulse Rate [ 88 Sitting] Pulse Rate [ 93 Standing] Pulse Rate [ 85 Supine] Respiratory 18 15 Rate Blood Pressure 173/93 133/73 Blood Pressure 151/98 [Right Arm Sitting] Blood Pressure 160/100 [Right Arm Standing] Blood Pressure 142/85 [Right Arm Supine] O2 Sat by Pulse 98 95 Oximetry 11/04/17 11/04/17 23:08 23:15 Temperature 97.6 F Pulse Rate 80 85 Pulse Rate [ Sitting] Pulse Rate [ Standing] Pulse Rate [ Supine] Respiratory 18 18 Rate Blood Pressure 135/77 130/81 Blood Pressure [Right Arm Sitting] Blood Pressure [Right Arm Standing] Blood Pressure [Right Arm Supine] O2 Sat by Pulse 96 96 Oximetry EKG Findings - EKG Comments: EKG Findings:: EKG shows normal sinus rhythm possible LVH. Ventricular rate is 85, NH interval 164, QRS duration 82, QT 346, QTC 411. No ST elevation or depression. Medical Decision Making - Medical Decision Making 37-year-old male patient presents to the emergency department today for evaluation of dizziness 2-3 hours. Physical examination is unremarkable. Patient is neurologically intact. We did perform labs which were unremarkable. EKG was normal sinus rhythm. Orthostatic vital signs are unremarkable. Patient did receive Antivert and IV fluids here in the department. Upon reexamination patient is feeling better and states his dizziness is resolved. We did discuss use of his new blood pressure medication and importance of follow -up with his primary care physician. He is instructed to return here immediately for any new, worsening, or concerning symptoms. He verbalizes understanding and agrees with this plan. - Lab Data Result diagrams: 11/04/17 21:39 11/04/17 21:39 Lab Results 11/04/17 11/04/17 Range/Units 21:39 21:39 WBC 9.8 (3.8-10.6) k/uL RBC 5.72 (4.30-5.90) m/uL Hgb 17.3 (13.0-17.5) gm/dL Hct 51.2 (39.0-53.0) % MCV 89.5 (80.0-100.0) fL MCH 30.2 (25.0-35.0) pg MCHC 33.8 (31.0-37.0) g/dL RDW 12.5 (11.5-15.5) % Plt Count 259 (150-450) k/uL Neutrophils % 71 % Lymphocytes % 18 % Monocytes % 6 % Eosinophils % 3 % Basophils % 1 % Neutrophils # 7.0 (1.3-7.7) k/uL Lymphocytes # 1.8 (1.0-4.8) k/uL Monocytes # 0.6 (0-1.0) k/uL Eosinophils # 0.3 (0-0.7) k/uL Basophils # 0.1 (0-0.2) k/uL Sodium 143 (137-145) mmol/L Potassium 4.1 (3.5-5.1) mmol/L Chloride 99 (98-107) mmol/L Carbon Dioxide 33 H (22-30) mmol/L Anion Gap 11 mmol/L BUN 10 (9-20) mg/dL Creatinine 1.00 (0.66-1.25) mg/dL Est GFR (CKD-EPI)AfAm >90 (>60 ml/min/1.73 sqM) Est GFR (CKD-EPI)NonAf >90 (>60 ml/min/1.73 sqM) Glucose 140 H (74-99) mg/dL Calcium 9.9 (8.4-10.2) mg/dL Total Bilirubin 0.4 (0.2-1.3) mg/dL AST 30 (17-59) U/L ALT 48 (21-72) U/L Alkaline Phosphatase 77 (38-126) U/L Total Protein 7.9 (6.3-8.2) g/dL Albumin 4.5 (3.5-5.0) g/dL Disposition Clinical Impression: Dizziness Disposition: HOME SELF-CARE Condition: Good Instructions: Dizziness (ED) Additional Instructions: Stopped taking her blood pressure medication follow-up with your primary care physician as soon as possible. Return here immediately for any new, worsening, or concerning symptoms. Referrals: Gracie Zhao MD [Primary Care Provider] - 1-2 days Time of Disposition: 23:00
[2017-11-04 21:53] LABS: Basophils # (A) 0.1 k/uL (0-0.2); Basophils % (A) 1 %; Eosinophils # (A) 0.3 k/uL (0-0.7); Eosinophils % (A) 3 %; HCT 51.2 % (39.0-53.0); HGB 17.3 gm/dL (13.0-17.5); Lymphocytes # (A) 1.8 k/uL (1.0-4.8); Lymphocytes % (A) 18 %; MCH 30.2 pg (25.0-35.0); MCHC 33.8 g/dL (31.0-37.0); MCV 89.5 fL (80.0-100.0); Mean Platelet Volume 7.1; Monocytes # (A) 0.6 k/uL (0-1.0); Monocytes % (A) 6 %; Neutrophils % (A) 71 %; Platelet Count 259 k/uL (150-450); RBC 5.72 m/uL (4.30-5.90); RDW 12.5 % (11.5-15.5); WBC 9.8 k/uL (3.8-10.6)
[2017-11-04 22:08] LABS: ALT 48 U/L (21-72); AST 30 U/L (17-59); Albumin 4.5 g/dL (3.5-5.0); Alkaline Phosphatase 77 U/L (38-126); Anion Gap 11 mmol/L; Blood Urea Nitrogen 10 mg/dL (9-20); Calcium 9.9 mg/dL (8.4-10.2); Carbon Dioxide 33 mmol/L (22-30); Chloride 99 mmol/L (98-107); Glucose 140 mg/dL (74-99); Potassium 4.1 mmol/L (3.5-5.1); Sodium 143 mmol/L (137-145); Total Bilirubin 0.4 mg/dL (0.2-1.3); Total Protein 7.9 g/dL (6.3-8.2)
[2017-11-04 23:10] VITALS: RESP 18
[2017-11-04 23:23] VITALS: BP 130/81; PULSE 85; TEMP 97.6
== END 2017-11-04 23:15 | disposition home or self-care (01) ==
LOC: EC 20:39
DX: R42 Dizziness and giddiness (principal); R51 Headache; E07.9 Disorder of thyroid, unspecified; K21.9 Gastro-esophageal reflux disease without esophagitis; Z85.528 Personal history of other malignant neoplasm of kidney; Z79.899 Other long term (current) drug therapy
CPT/HCPCS: 36415; 80053; 85025; 93005; 96360; 99284

== ENCOUNTER → 2017-11-25 | Outpatient (CLI) | payer MEDICARE, OTHER ==
--- NOTE | 2017-11-25 14:49 | MR ---
EXAMINATION TYPE: MR brain wo con DATE OF EXAM: 11/25/2017 COMPARISON: NONE HISTORY: Essential Hypertension /intermittent lightheadedness per order. TECHNIQUE: Multiplanar, multisequence imaging of the brain and brainstem is performed without IV cont rast. FINDINGS: Diffusion weighted images demonstrate no evidence of a recent infarct or other diffusion abnormality. There is no extraaxial fluid collection or significant white matter signal abnormality. The ventricu lar system and cisternal spaces are normal in size and appearance. The brain volume is age appropria te. Midline structures demonstrate normal morphology. The craniocervical junction appears within normal limits. Normal vascular flow voids are present. Tortuous course to distal left vertebral artery is in cidentally seen. The visualized sinuses are clear and the globes are intact. No suspicious fluid sign al seen in mastoid air cells bilaterally. IMPRESSION: No significant finding is seen to account for patient's symptoms.
== END | disposition home or self-care (01) ==
LOC: RADMRIMAIN 13:41
PROVIDERS: ATTEND Family Medicine
DX: R42 Dizziness and giddiness (principal); I10 Essential (primary) hypertension
CPT/HCPCS: 70551

== ENCOUNTER → 2018-01-31 | Outpatient (CLI) | payer MEDICARE, OTHER ==
--- NOTE | 2018-01-31 12:02 | MR ---
EXAMINATION TYPE: MR brain w con DATE OF EXAM: 01/31/2018 COMPARISON: MRI brain 11/25/2017 HISTORY: Vestibular neuronitis, F/U from October MRI brain wo CONTRAST: Performed utilizing 10 mL intravenous Gadavist gadolinium contrast. TECHNIQUE: Multiplanar, multiecho imaging on a 3.0 Soha magnet is performed through the brain. Stud y is performed within 24 hours of arrival to the hospital. Images are postcontrast and compared to exam. Findings: The 8th nerve complex appears normal. No abnormal enhancement is evident. The region of the semicircular canals and cochlea appear unremarkable without enhancement IMPRESSIONS: 1. No suspicious enhancement to confirm vestibular neuritis
== END | disposition home or self-care (01) ==
LOC: RADMRIMAIN 09:03
PROVIDERS: ATTEND Psychiatry & Neurology Neurology
DX: H81.20 Vestibular neuronitis, unspecified ear (principal)
CPT/HCPCS: 70552; A9581

== ENCOUNTER → 2018-07-26 | Outpatient (CLI) | payer MEDICARE, OTHER | END | disposition home or self-care (01) | LOC: PEDOP 16:25 | PROVIDERS: ATTEND Family Medicine | DX: R05 Cough (principal) | CPT/HCPCS: 87502; G0463; 99202 ==

== ENCOUNTER 2018-09-15 22:52 | Observation (INO) | payer MEDICARE, OTHER ==
[2018-09-15] MEDS ORDERED: ONDANSETRON 4 MG/2 ML VIAL IVP STA (23:19)
[2018-09-15] MEDS ORDERED: SODIUM CHLORIDE 0.9% 1,000 ML IV STA (23:19)
[2018-09-15] MEDS ORDERED: KETOROLAC 30 MG/ML 1 ML VIAL IVP STA (23:20)
[2018-09-15 23:54] LABS: Basophils # (A) 0.1 k/uL (0-0.2); Basophils % (A) 0 %; Eosinophils # (A) 0.3 k/uL (0-0.7); Eosinophils % (A) 3 %; HGB 18.9 gm/dL (13.0-17.5); Lymphocytes # (A) 1.7 k/uL (1.0-4.8); Lymphocytes % (A) 16 %; MCH 31.2 pg (25.0-35.0); MCHC 34.2 g/dL (31.0-37.0); MCV 91.3 fL (80.0-100.0); Mean Platelet Volume 6.8; Monocytes # (A) 0.5 k/uL (0-1.0); Monocytes % (A) 4 %; Neutrophils # (A) 7.8 k/uL (1.3-7.7); Neutrophils % (A) 75 %; Platelet Count 262 k/uL (150-450); RBC 6.06 m/uL (4.30-5.90); RDW 12.9 % (11.5-15.5); WBC 10.5 k/uL (3.8-10.6)
[2018-09-16] LABS: HCT 55.3 % (39.0-53.0)
[2018-09-16 00:06] LABS: ALT 97 U/L (21-72); AST 92 U/L (17-59); Albumin 5.2 g/dL (3.5-5.0); Alkaline Phosphatase 90 U/L (38-126); Amylase 78 U/L (30-110); Anion Gap 13 mmol/L; Blood Urea Nitrogen 17 mg/dL (9-20); Carbon Dioxide 25 mmol/L (22-30); Chloride 105 mmol/L (98-107); Glucose 119 mg/dL (74-99); Lipase 170 U/L (23-300); Sodium 143 mmol/L (137-145); Total Bilirubin 1.5 mg/dL (0.2-1.3); Total Protein 9.9 g/dL (6.3-8.2)
[2018-09-16 00:15] LABS: Potassium 4.8 mmol/L (3.5-5.1)
--- NOTE | 2018-09-16 00:21 | XR ---
EXAMINATION TYPE: XR KUB DATE OF EXAM: 09/16/2018 COMPARISON: 08/01/2017 HISTORY: Abdominal pain TECHNIQUE: 2 views FINDINGS: 2 upright views were obtained and show some intestinal air-fluid levels in the large bowel on the right side. There is no sign of free air. There are no pathologic calcifications over the kidn eys. IMPRESSION: There are large bowel fluid levels that could relate to diarrhea. No free air. I do not s ee evidence for mechanical bowel obstruction. Large bowel abnormal appearance is a change compared to old exam.
[2018-09-16 00:28] LABS: Appearance,Urine Clear (Clear); Bilirubin,Urine Negative (Negative); Blood,Urine Trace (Negative); Color,Urine Yellow; Glucose,Urine (UA) Negative (Negative); Ketones,Urine 1+ (Negative); Leukocyte Esterase,Urine Negative (Negative); Mucus,Urine Few /hpf; Nitrite,Urine Negative (Negative); PH, Urine 5.5 (5.0-8.0); Protein,Urine 1+ (Negative); RBC,Urine 2 /hpf (0-5); Specific Gravity,Urine 1.024 (1.001-1.035); WBC,Urine 2 /hpf (0-5)
[2018-09-16] MEDS ORDERED: SODIUM CHLORIDE 0.9% 500 ML 500 ML IV ONE (00:42)
--- NOTE | 2018-09-16 00:42 | ED ---
Abdominal Pain HPI - General Chief Complaint: Abdominal Pain Stated Complaint: Abdominal Pain Time Seen by Provider: 09/15/18 23:15 Source: patient Mode of arrival: ambulatory Limitations: no limitations - History of Present Illness Initial Comments: 38-year-old male patient presents to the emergency department today for evaluation of midepigastric abdominal pain. Patient reports that the pains and present for the last 3 days. States he has not had a bowel movement. States he has been nauseated and been having dry heaves. Patient has been unable to tolerate any food or fluid intake. He denies any fevers or chills. Denies any chest pain or shortness of breath. Denies any radiation of the pain to his back. Denies any difficulty with urination. Patient denies any recent rash, numbness, tingling, dizziness, weakness, hematuria, dysuria, urinary urgency, urinary frequency, headache, visual changes, or any other complaints. - Related Data Home Medications Medication Instructions Recorded Confirmed RX: Levothyroxine Sodium 50 mcg PO DAILY 09/02/14 09/15/18 [Synthroid] Omeprazole [PriLOSEC] 20 mg PO DAILY 02/03/17 09/15/18 Dicyclomine [Bentyl] 20 mg PO TID 09/15/18 09/15/18 Allergies Allergy/AdvReac Type Severity Reaction Status Date / Time No Known Allergies Allergy Verified 09/15/18 23:45 Review of Systems ROS Statement: Those systems with pertinent positive or pertinent negative responses have been documented in the HPI. ROS Other: All systems not noted in ROS Statement are negative. 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 ABDOMINAL PAIN , KIDNEY CANCER History of Any Multi-Drug Resistant Organisms: None Reported Past Surgical History: Cholecystectomy Additional Past Surgical History / Comment(s): KIDNEY SURGERY-MASS REMOVED Past Anesthesia/Blood Transfusion Reactions: Previous Problems w/ Anesthesia Additional Past Anesthesia/Blood Transfusion Reaction / Comment(s): DIFFICULT INTUBATION - WILL BRING LETTER Past Psychological History: No Psychological Hx Reported Smoking Status: Never smoker Past Alcohol Use History: None Reported Past Drug Use History: None Reported - Past Family History Mother History Unknown: Yes Family Medical History: No Reported History Father Family Medical History: Diabetes Mellitus Additional Family Medical History / Comment(s): neuropathy General Exam Limitations: no limitations General appearance: alert, in no apparent distress, other (This is a well- developed, well-nourished adult male patient in no acute distress. Vital signs upon presentation are temperature 97.8F, pulse 1:15, respirations 17, blood pressure 139/92, pulse ox 94% on room air) Eye exam: Present: normal appearance, PERRL, EOMI. Absent: scleral icterus, conjunctival injection, periorbital swelling ENT exam: Present: normal exam, normal oropharynx, mucous membranes moist Respiratory exam: Present: normal lung sounds bilaterally. Absent: respiratory distress, wheezes, rales, rhonchi, stridor Cardiovascular Exam: Present: regular rate, normal rhythm, normal heart sounds. Absent: systolic murmur, diastolic murmur, rubs, gallop, clicks GI/Abdominal exam: Present: soft, tenderness (Midepigastric tenderness), normal bowel sounds. Absent: distended, guarding, rebound, rigid Neurological exam: Present: alert, oriented X3, CN II-XII intact Psychiatric exam: Present: normal affect, normal mood Skin exam: Present: warm, dry, intact, normal color. Absent: rash Course Vital Signs 09/15/18 09/16/18 09/16/18 23:10 00:24 01:13 Temperature 97.8 F 98.2 F Pulse Rate 115 H 106 H 92 Respiratory 17 18 18 Rate Blood Pressure 139/92 146/98 O2 Sat by Pulse 94 L 95 95 Oximetry 09/16/18 09/16/18 01:46 01:57 Temperature Pulse Rate 89 Respiratory 16 Rate Blood Pressure 137/94 O2 Sat by Pulse 99 94 L Oximetry Medical Decision Making - Medical Decision Making 38-year-old male patient presented to the emergency department today for evaluation of abdominal pain, vomiting, and constipation. Patient is not had a bowel movement 3 days. Has been unable tolerate any food or fluid intake. Labs reviewed and are relatively unremarkable he did have some very mild transaminitis elevated hemoglobin most likely due to dehydration. KUB x-ray did show air-fluid levels in the large bowel possibly from diarrhea however patient is not having diarrhea, concern for ileus is present. Patient did have decreased oxygen saturation on the emergency department, we did perform chest x- ray which showed no acute cardio pulmonary process. Patient denies any shortness of breath, chest pain, or history of similar oxygen findings. He'll be admitted to the hospital for observation for possible ileus. We'll start clear liquid diet. Antiemetic medication will be ordered. I did discuss findings, results, and plan with the patient, he is agreeable. - Lab Data Result diagrams: 09/15/18 23:41 09/15/18 23:41 Lab Results 09/15/18 09/15/18 09/15/18 Range/Units 23:41 23:41 23:41 WBC 10.5 (3.8-10.6) k/uL RBC 6.06 H (4.30-5.90) m/uL Hgb 18.9 H (13.0-17.5) gm/dL Hct 55.3 H (39.0-53.0) % MCV 91.3 (80.0-100.0) fL MCH 31.2 (25.0-35.0) pg MCHC 34.2 (31.0-37.0) g/dL RDW 12.9 (11.5-15.5) % Plt Count 262 (150-450) k/uL Neutrophils % 75 % Lymphocytes % 16 % Monocytes % 4 % Eosinophils % 3 % Basophils % 0 % Neutrophils # 7.8 H (1.3-7.7) k/uL Lymphocytes # 1.7 (1.0-4.8) k/uL Monocytes # 0.5 (0-1.0) k/uL Eosinophils # 0.3 (0-0.7) k/uL Basophils # 0.1 (0-0.2) k/uL Sodium 143 (137-145) mmol/L Potassium 4.8 (3.5-5.1) mmol/L Chloride 105 (98-107) mmol/L Carbon Dioxide 25 (22-30) mmol/L Anion Gap 13 mmol/L BUN 17 (9-20) mg/dL Creatinine 1.11 (0.66-1.25) mg/dL Est GFR (CKD-EPI)AfAm >90 (>60 ml/min/1.73 sqM) Est GFR (CKD-EPI)NonAf 85 (>60 ml/min/1.73 sqM) Glucose 119 H (74-99) mg/dL Plasma Lactic Acid Ezequiel 1.3 (0.7-2.0) mmol/L Calcium 10.0 (8.4-10.2) mg/dL Total Bilirubin 1.5 H (0.2-1.3) mg/dL AST 92 H (17-59) U/L ALT 97 H (21-72) U/L Alkaline Phosphatase 90 (38-126) U/L Troponin I (0.000-0.034) ng/mL Total Protein 9.9 H (6.3-8.2) g/dL Albumin 5.2 H (3.5-5.0) g/dL Amylase 78 (30-110) U/L Lipase 170 (23-300) U/L Urine Color Urine Appearance (Clear) Urine pH (5.0-8.0) Ur Specific Bono (1.001-1.035) Urine Protein (Negative) Urine Glucose (UA) (Negative) Urine Ketones (Negative) Urine Blood (Negative) Urine Nitrite (Negative) Urine Bilirubin (Negative) Urine Urobilinogen (<2.0) mg/dL Ur Leukocyte Esterase (Negative) Urine RBC (0-5) /hpf Urine WBC (0-5) /hpf Urine Mucus (None) /hpf 09/15/18 09/15/18 Range/Units 23:41 23:52 WBC (3.8-10.6) k/uL RBC (4.30-5.90) m/uL Hgb (13.0-17.5) gm/dL Hct (39.0-53.0) % MCV (80.0-100.0) fL MCH (25.0-35.0) pg MCHC (31.0-37.0) g/dL RDW (11.5-15.5) % Plt Count (150-450) k/uL Neutrophils % % Lymphocytes % % Monocytes % % Eosinophils % % Basophils % % Neutrophils # (1.3-7.7) k/uL Lymphocytes # (1.0-4.8) k/uL Monocytes # (0-1.0) k/uL Eosinophils # (0-0.7) k/uL Basophils # (0-0.2) k/uL Sodium (137-145) mmol/L Potassium (3.5-5.1) mmol/L Chloride (98-107) mmol/L Carbon Dioxide (22-30) mmol/L Anion Gap mmol/L BUN (9-20) mg/dL Creatinine (0.66-1.25) mg/dL Est GFR (CKD-EPI)AfAm (>60 ml/min/1.73 sqM) Est GFR (CKD-EPI)NonAf (>60 ml/min/1.73 sqM) Glucose (74-99) mg/dL Plasma Lactic Acid Ezequiel (0.7-2.0) mmol/L Calcium (8.4-10.2) mg/dL Total Bilirubin (0.2-1.3) mg/dL AST (17-59) U/L ALT (21-72) U/L Alkaline Phosphatase (38-126) U/L Troponin I <0.012 (0.000-0.034) ng/mL Total Protein (6.3-8.2) g/dL Albumin (3.5-5.0) g/dL Amylase (30-110) U/L Lipase (23-300) U/L Urine Color Yellow Urine Appearance Clear (Clear) Urine pH 5.5 (5.0-8.0) Ur Specific Bono 1.024 (1.001-1.035) Urine Protein 1+ H (Negative) Urine Glucose (UA) Negative (Negative) Urine Ketones 1+ H (Negative) Urine Blood Trace H (Negative) Urine Nitrite Negative (Negative) Urine Bilirubin Negative (Negative) Urine Urobilinogen 3.0 (<2.0) mg/dL Ur Leukocyte Esterase Negative (Negative) Urine RBC 2 (0-5) /hpf Urine WBC 2 (0-5) /hpf Urine Mucus Few H (None) /hpf - Radiology Data Radiology results: report reviewed, image reviewed Two-view x-ray of the abdomen is obtained. Report reviewed in its entirety. Impression by Dr. Crowder shows large bowel fluid levels that could relate to diarrhea. No free air. Do not see evidence for mechanical bowel truck. Large bowel abnormal appearance to change compared to old exam. Two-view x-ray of the chest is obtained. Report is reviewed in its entirety. Impression by Dr. Crowder shows no active cardiopulmonary disease. No change. Disposition Clinical Impression: Ileus Disposition: ADMITTED IP TO THIS [facility] Condition: Serious Referrals: Gracie Zhao MD [Primary Care Provider] - 1-2 days Decision to Admit Reason: Admit from EC Decision Date: 09/16/18 Decision Time: 02:01
[2018-09-16] MEDS ORDERED: DICYCLOMINE 10 MG/ML 2 ML AMP IM STA (01:01)
[2018-09-16] MEDS ORDERED: MORPHINE SULFATE 2 MG/ML SYRINGE IVP STA (01:01)
--- NOTE | 2018-09-16 01:44 | XR ---
EXAMINATION TYPE: XR chest 2V DATE OF EXAM: 09/16/2018 COMPARISON: 11/30/2016 HISTORY: Chest pain TECHNIQUE: Frontal and lateral views of the chest are obtained. FINDINGS: Heart and mediastinum are normal. Lungs are clear of infiltrate. There is no heart failure . Bony thorax is intact. IMPRESSION: No active cardiopulmonary disease. No change.
[2018-09-16] MEDS ORDERED: ONDANSETRON 4 MG/2 ML VIAL IVP PRN (01:57)
[2018-09-16] MEDS ORDERED: NALOXONE 0.4 MG/ML 1 ML VIAL IV PRN (01:57)
[2018-09-16 03:32] VITALS: BMI 31.1
[2018-09-16] MEDS: SODIUM CHLORIDE 0.9% 1,000 ML IV SCH ×2 (04:18→17:26)
[2018-09-16] MEDS: IOPAMIDOL-300 CONTRAST 30 ML VIAL (ORAL USE) PO PRN ×2 (12:59→14:37)
--- NOTE | 2018-09-16 15:13 | CT ---
EXAMINATION TYPE: CT abdomen pelvis wo con DATE OF EXAM: 09/16/2018 COMPARISON: 08/01/2017 HISTORY: abdominal pain CT DLP: 882 mGycm Examination of the solid and hollow viscera is limited given the lack of contrast. FINDINGS: LUNG BASES: No evidence for nodule. No evidence for infiltrate. LIVER/GB: Cholecystectomy clips noted. No space-occupying hepatic lesion. PANCREAS: No pancreatic mass identified. No inflammatory process seen. SPLEEN: No evidence for splenomegaly. No intrasplenic lesions seen. ADRENALS: No adrenal nodules identified. No evidence for thickening. KIDNEYS: No evidence for renal mass. No nephrolithiasis. No hydronephrosis. BOWEL: There is cecal wall thickening which may reflect colitis. Correlate clinically. The remainder of the colon is of normal wall thickness and caliber. No evidence of bowel obstruction. Lymph nodes: No evidence for adenopathy greater than 1 cm. Abdominal aorta: Atheromatous changes seen. No evidence for aneurysm. Genital organs: No significant abnormality. Other: No significant abnormality. IMPRESSION: 1.There is cecal wall thickening which may reflect colitis. Correlate clinically.
[2018-09-16] MEDS: MORPHINE SULFATE 4 MG/ML SYRINGE IV PRN ×2 (17:24→21:43)
[2018-09-16] MEDS: KETOROLAC 30 MG/ML 1 ML VIAL IVP PRN (20:03)
[2018-09-16] MEDS ORDERED: ACETAMINOPHEN TAB 500 MG TAB PO PRN (23:09)
[2018-09-17] MEDS: metroNIDAZOLE-NS PMX 500 MG in SALINE 1 100ML.BAG IVPB SCH ×3 (01:02→15:19)
[2018-09-17] MEDS: LEVOFLOXACIN 500MG-D5W PMX 500 MG in DEXTROSE/WATER 1 100ML.BAG IVPB SCH (01:02)
--- NOTE | 2018-09-17 01:53 | HP ---
HISTORY AND PHYSICAL DATE OF SERVICE: 09/16/2018 CHIEF COMPLAINTS: Abdominal pain. HISTORY OF PRESENT ILLNESS: This 38-year-old gentleman with a past medical history of multiple medical problems including developmental delay, history of GERD, hypothyroidism, history of cholecystectomy, history of kidney mass, being followed by Dr. Iraheta in the outpatient setting, was complaining of abdominal pain. The patient apparently was complaining of midepigastric abdominal pain, the last 3 days and patient apparently constipated also. Patient nauseated and dry heaves also. Because of multiple symptomatology, patient came to [facility] and x-ray plain x-rays of the abdomen showed some ileus. A CT scan showed possible cecal colitis and patient admitted to the hospital further evaluation and treatment. A detailed history cannot be taken from the patient because of the developmental delay. Also the history taken from my discussion with staff and review of the chart and as well as discussion with the family at the bedside. PAST MEDICAL HISTORY: History of GERD, hypothyroidism, developmental delay, history of kidney surgery. MEDICATIONS: Prior to admission include home medications are: 1. Omeprazole 20 mg daily. 2. Levothyroxine 50 mcg. 3. Bentyl 20 mg p.o. daily. ALLERGIES: None. Family history, social history and review of systems could not be taken but from the patient. FAMILY HISTORY: History of diabetes neuropathy from the chart. SOCIAL HISTORY: From the chart, no history of smoking. No history of alcohol intake. PHYSICAL EXAM: GENERAL: Patient is conscious. VITAL SIGNS: Pulse 83, blood pressure 129/84, respiration 18, temperature 97.8, pulse ox 93% on room air. HEENT: Conjunctivae normal. Oral mucosa moist. NECK: No jugular venous distention. No carotid bruit. No lymph node enlargement. CARDIOVASCULAR: S1, S2. RESPIRATORY: Breath sounds diminished in the bases. A few scattered rhonchi. No crackles. ABDOMEN: Soft. Mild diffuse discomfort on palpation. No guarding. No rigidity. No mass palpable. No ascites. Legs: No edema. No swelling. NERVOUS SYSTEM: Higher functions as mentioned earlier. Moves all four extremities. No focal motor or sensory deficits. LYMPHATICS: No lymph nodes palpable in the neck or axilla. SKIN: No ulcer, rash, no bleeding. LAB STUDIES: WBC 10.2, hemoglobin is 18.9. Sodium 140. Potassium 4.8, glucose 119, total bilirubin is 1.5, AST is 92, ALT is 97. UA noted. ASSESSMENT: 1. Diffuse abdominal pain possibly ileus or colitis. 2. Increased WBC. 3. Increased AST/ALT. 4. History of development delay. 5. History of gastroesophageal reflux disease. 6. History of cholecystectomy. 7. History of kidney mass cancer. RECOMMENDATIONS AND DISCUSSION: In this 38-year-old gentleman who presented with multiple complex medical issues, we will monitor the patient closely, continue the current medications, management and symptomatic treatment. Otherwise we will obtain Gastroenterology consultation. Otherwise I would also recommend symptomatic treatment. Empiric antibiotics. Closely monitor. The patient is on clear liquid diet at this time. Continue to continue to monitor. Guarded prognosis because of multiple complex medical issues. Further recommendations to follow. MMODL / IJN: [id number] /
[2018-09-17] MEDS: SODIUM CHLORIDE 0.9% 1,000 ML IV SCH ×2 (05:35→21:29)
[2018-09-17] MEDS: LEVOTHYROXINE 50 MCG TAB PO SCH (05:35)
[2018-09-17] MEDS: MORPHINE SULFATE 4 MG/ML SYRINGE IV PRN ×4 (05:36→17:42)
[2018-09-17] MEDS: KETOROLAC 30 MG/ML 1 ML VIAL IVP PRN (05:37)
[2018-09-17] MEDS: PANTOPRAZOLE 40 MG/10 ML VIAL IVP SCH ×2 (08:12→21:28)
[2018-09-17] MEDS: HEPARIN SODIUM,PORCINE 5,000 UNIT/ML 1 ML VIAL SQ SCH ×2 (08:12→21:28)
[2018-09-17 08:33] LABS: ALT 218 U/L (21-72); AST 147 U/L (17-59); Albumin 3.9 g/dL (3.5-5.0); Alkaline Phosphatase 95 U/L (38-126); Anion Gap 7 mmol/L; Blood Urea Nitrogen 11 mg/dL (9-20); Calcium 8.8 mg/dL (8.4-10.2); Carbon Dioxide 25 mmol/L (22-30); Chloride 110 mmol/L (98-107); Glucose 97 mg/dL (74-99); Sodium 142 mmol/L (137-145); Total Protein 7.1 g/dL (6.3-8.2)
[2018-09-17 10:44] LABS: Basophils % (A) 0 %; Eosinophils # (A) 0.3 k/uL (0-0.7); Eosinophils % (A) 3 %; HCT 48.6 % (39.0-53.0); HGB 16.7 gm/dL (13.0-17.5); Lymphocytes # (A) 1.2 k/uL (1.0-4.8); Lymphocytes % (A) 12 %; MCHC 34.3 g/dL (31.0-37.0); MCV 93.3 fL (80.0-100.0); Mean Platelet Volume 8.1; Monocytes # (A) 0.5 k/uL (0-1.0); Monocytes % (A) 5 %; Neutrophils # (A) 8.5 k/uL (1.3-7.7); Neutrophils % (A) 80 %; Platelet Count 208 k/uL (150-450); RBC 5.21 m/uL (4.30-5.90); RDW 12.8 % (11.5-15.5); WBC 10.6 k/uL (3.8-10.6)
--- NOTE | 2018-09-17 11:40 | CONS ---
CONSULTATION DATE OF DICTATION: 09/17/2018 REASON FOR CONSULTATION: Abdominal pain. HISTORY OF PRESENT ILLNESS: The patient is a 38-year-old white male with history of developmental delay, GERD and hypothyroidism who follows with Dr. Iraheta on an outpatient basis. He was admitted to the hospital because of acute onset of abdominal pain for the last 3 days' duration. According to his father, who is at the bedside, the patient apparently started having pain mostly in the epigastric area, then radiating to the lower abdominal area, associated with some nausea, vomiting and constipation. The pain continued to progressively get worse and hence he was brought into the emergency room. A CT of the abdomen showed thickening of the cecum suspicious for acute colitis. Surprisingly, the patient did not have any diarrhea since the onset of these symptoms. He was started on empiric antibiotics. This morning he is feeling a little bit better. He remains on a clear liquid diet, tolerating well. He reports no fever, chills or night sweats. PAST MEDICAL HISTORY: 1. Hypothyroidism. 2. GERD. 3. Developmental delay. MEDICATIONS AT HOME: 1. Omeprazole. 2. Levothyroxine. 3. Bentyl. ALLERGIES: NONE. SOCIAL HISTORY: No smoking. No alcohol use. FAMILY HISTORY: Diabetes mellitus. REVIEW OF SYSTEMS: CARDIOPULMONARY: No chest pain. No shortness of breath. GENITOURINARY: No dysuria, hematuria. MUSCULOSKELETAL: Unremarkable. SKIN: Unremarkable. ENDOCRINE: Unremarkable. PSYCHIATRY: Unremarkable. ENT/VISION: Unremarkable. CONSTITUTIONAL: No recent weight loss. No fever, chills, night sweats. HEMATOLOGY: Unremarkable. PHYSICAL EXAMINATION: Appears comfortable; no apparent distress. Vital signs are stable. Blood pressure is 109/72, pulse rate 84, temperature 97.8. HEENT EXAMINATION: Unremarkable. Conjunctivae pink. Sclerae anicteric. Oral cavity no lesions. NECK: No JVD or lymph node enlargement. Chest was clear to auscultation. HEART: Regular rate and rhythm. ABDOMEN: Soft. There was mild tenderness in the suprapubic area. Rest of the abdomen was benign. No rebound or rigidity. Bowel sounds are positive. EXTREMITIES: No pedal edema. SKIN: No rashes. NEURO: He is alert and oriented x3. No focal deficits. LABS: Labs done yesterday showed WBC 10.5, hemoglobin 18.9, platelets normal. Basic metabolic panel showed a T-bilirubin of 1.5, AST 92, ALT 97. Today T-bilirubin is normal, but AST went up to 147 and ALT is 218. The rest of the labs are normal. IMPRESSION: 1. This is a patient who presented to the hospital with diffuse abdominal pain. Initially it started in the epigastric area radiating to the lower abdominal area for the last [address] of the abdomen showed thickening of the cecum suspicious for acute colitis. Patient on empiric antibiotics with Flagyl and Levaquin, and his symptoms are gradually improving. 2. Elevated liver function tests with ALT and AST of 147 and 218, respectively. Patient is status post gallbladder surgery many years ago for sludge in the gallbladder. Recent CT scan of the abdomen did not show any evidence of biliary ductal dilation. However, with this presentation CBD pathology cannot be excluded. RECOMMENDATIONS: 1. Repeat labs in the morning. 2. Advance to a full liquid diet. 3. Continue empiric antibiotics. 4. Will follow him closely during his hospital stay. Thank you for this consultation. DOUGL / IJN: [id number] /
--- NOTE | 2018-09-17 20:55 | PN ---
PROGRESS NOTE DATE OF SERVICE: 09/17/2018 This 38-year-old gentleman admitted with abdominal pain, had features of colitis on the CT scan. The patient still having abdominal pain. Otherwise, patient started on empiric antibiotics. No fever. No cough. Dr. Paul from Gastroenterology also seen the patient. The patient is being closely monitored. AST/ALT also elevated. No chest pain. No palpitations. No fever. EXAM: On exam, alert and oriented x3. The pulse is 78, blood pressure 120/72, respiration 16, temperature 97.4, pulse ox 97% on room air. HEENT: Conjunctivae normal. NECK: No jugular venous distention. CARDIOVASCULAR: S1, S2 muffled. RESPIRATORY: Breath sounds diminished in the bases. No rhonchi. ABDOMEN: Soft. Mild diffuse discomfort. No guarding. No rigidity. No mass palpable. LEGS: No edema. No swelling. CENTRAL NERVOUS SYSTEM: No focal deficits. LABORATORY DATA: WBC 10.3, hemoglobin 16.7, and AST is 147, ALT is 218. ASSESSMENT: 1. Diffuse abdominal pain with possibly colitis or ileus. 2. Increased WBC. 3. Increased AST/ALT. 4. Hepatitis of undetermined etiology. 5. History of Developmental delay. 6. History of gastroesophageal reflux disease. 7. History of cholecystectomy. 8. History of kidney mass and cancer. RECOMMENDATIONS AND DISCUSSION: Recommend to continue current medications, management and symptomatic treatment. Continue with monitoring. CT scan has been reviewed. Gastroenterology input appreciated. I would also recommend acute hepatitis panel. Further recommendations to follow. MMODL / IJN: [id number] /
[2018-09-17 23:29] LABS: Hepatitis A Antibody IgM Non-Reactive (Non-Reactive); Hepatitis B Core IgM Non-Reactive (Non-Reactive)
[2018-09-18] MEDS: MORPHINE SULFATE 4 MG/ML SYRINGE IV PRN ×2 (00:02→16:27)
[2018-09-18] MEDS: LEVOFLOXACIN 500MG-D5W PMX 500 MG in DEXTROSE/WATER 1 100ML.BAG IVPB SCH ×2 (00:02→23:26)
[2018-09-18] MEDS: metroNIDAZOLE-NS PMX 500 MG in SALINE 1 100ML.BAG IVPB SCH ×4 (01:17→23:26)
[2018-09-18] MEDS: LEVOTHYROXINE 50 MCG TAB PO SCH (06:38)
[2018-09-18 08:40] LABS: ALT 171 U/L (21-72); AST 71 U/L (17-59); Albumin 4.2 g/dL (3.5-5.0); Alkaline Phosphatase 74 U/L (38-126); Anion Gap 8 mmol/L; Blood Urea Nitrogen 7 mg/dL (9-20); Calcium 9.4 mg/dL (8.4-10.2); Carbon Dioxide 32 mmol/L (22-30); Chloride 104 mmol/L (98-107); Glucose 96 mg/dL (74-99); Potassium 4.5 mmol/L (3.5-5.1); Sodium 144 mmol/L (137-145); Total Bilirubin 0.7 mg/dL (0.2-1.3); Total Protein 7.3 g/dL (6.3-8.2)
[2018-09-18] MEDS: HEPARIN SODIUM,PORCINE 5,000 UNIT/ML 1 ML VIAL SQ SCH ×2 (08:55→21:39)
[2018-09-18] MEDS: PANTOPRAZOLE 40 MG/10 ML VIAL IVP SCH ×2 (08:55→21:39)
[2018-09-18] MEDS: SODIUM CHLORIDE 0.9% 1,000 ML IV SCH (08:56)
[2018-09-18 09:00] LABS: Basophils % (A) 0 %; Eosinophils # (A) 0.1 k/uL (0-0.7); Eosinophils % (A) 2 %; HCT 50.2 % (39.0-53.0); HGB 16.4 gm/dL (13.0-17.5); Lymphocytes # (A) 1.3 k/uL (1.0-4.8); Lymphocytes % (A) 18 %; MCH 30.5 pg (25.0-35.0); MCHC 32.7 g/dL (31.0-37.0); MCV 93.4 fL (80.0-100.0); Mean Platelet Volume 6.3; Monocytes # (A) 0.4 k/uL (0-1.0); Monocytes % (A) 6 %; Neutrophils # (A) 5.4 k/uL (1.3-7.7); Neutrophils % (A) 74 %; Platelet Count 244 k/uL (150-450); RBC 5.38 m/uL (4.30-5.90); RDW 12.9 % (11.5-15.5); WBC 7.4 k/uL (3.8-10.6)
--- NOTE | 2018-09-18 10:11 | PN ---
PROGRESS NOTE DATE OF SERVICE: 09/18/2018 Patient is a 38-year-old white male admitted to hospital with severe abdominal pain mostly in the epigastric area as well as in the lower abdominal area for the last [address] of the abdomen showed thickening of the cecum suspicious for acute colitis. He is on empiric antibiotics. He is gradually improving. He was also noted to have elevated LFTs and status post gallbladder surgery many years ago for gallbladder sludge. This morning, he states that he is feeling much better. He still has mild pain in the epigastric area. No nausea, vomiting. No fever, chills, night sweats. PHYSICAL EXAMINATION: Appears comfortable. No apparent distress. VITAL SIGNS: Stable. Blood pressure is 147/93, pulse rate 80, temperature 98.7. HEENT examination unremarkable. Conjunctivae pink. Sclerae anicteric. Oral cavity no lesions. NECK: No jugular venous distention or lymph node enlargement. Chest was clear to auscultation. HEART: Regular rate and rhythm. ABDOMEN: Soft. Bowel sounds are positive. No organomegaly. Extremities: No pedal edema. Skin no rashes. NEUROLOGIC: Alert and oriented x3. No focal deficits. IMPRESSION: 1. Abdominal pain of [address] of the abdomen showing thickening of the cecum suspicious for colitis. The patient does not have any diarrhea, on empiric antibiotics with Flagyl and Levaquin and his symptoms are gradually improving. 2. Elevated LFTs, which have significantly improved. Today AST 71, ALT is 171. The etiology of this remains unclear. Doubt retained common bile duct stone, especially with his symptoms gradually improving. RECOMMENDATIONS: 1. Advance diet as tolerated. 2. Continue broad-spectrum antibiotics. 3. Follow LFTs closely. 4. No plans for any endoscopy intervention and we will follow the patient closely during this hospital stay. Thank you for this consultation. MMODL / IJN: [id number] /
--- NOTE | 2018-09-18 19:53 | PN ---
PROGRESS NOTE DATE OF SERVICE: 09/18/2018 This 38-year-old gentleman who was admitted with diffuse abdominal pain with possible colitis is on empiric antibiotics. No chest pain. No palpitations. No fever. The patient is on clear liquids. Dr. Paul is following the patient closely. Not planning any endoscopies currently. No chest pain. No palpitations. No fever. EXAM: Pulse 84. Blood pressure 119/78, respirations 16, temperature 97.2, pulse ox 98% on room air. HEENT: Conjunctivae normal. NECK: No jugular venous distention. CARDIOVASCULAR: S1, S2. RESPIRATORY: Breath sounds diminished in the bases. No rhonchi. No crackles. ABDOMEN is soft. Mild diffuse discomfort. No mass palpable. Legs are no edema. No swelling. CENTRAL NERVOUS SYSTEM: No focal deficits. LABS: WBC 7.1, hemoglobin 16.4, sodium 140, potassium 4.5, and AST 71, ALT is 171, which is improving. ASSESSMENT: 1. Diffuse abdominal pain with possible colitis or ileus. 2. Increased WBC. 3. Increased AST, ALT, improving. 4. Hepatitis of undetermined etiology. 5. History of development delay. 6. History of gastroesophageal reflux disease. 7. History of cholecystectomy. 8. History of kidney mass and cancer. BECAUSE: Recommend to continue current medications, management. Symptomatic treatment. Continue empiric antibiotics. Closely follow with Gastroenterology. Acute hepatitis panel negative at this time. Further recommendations to follow. MMODL / IJN: [id number] /
[2018-09-18] MEDS: HYDROcodone/APAP 5-325MG 1 EACH TAB PO PRN (21:39)
[2018-09-19] MEDS: MORPHINE SULFATE 4 MG/ML SYRINGE IV PRN ×2 (01:00→04:42)
[2018-09-19] MEDS: HYDROcodone/APAP 5-325MG 1 EACH TAB PO PRN ×3 (03:34→17:12)
[2018-09-19] MEDS: LEVOTHYROXINE 50 MCG TAB PO SCH (05:39)
[2018-09-19] MEDS: SODIUM CHLORIDE 0.9% 1,000 ML IV SCH ×3 (07:42→23:54)
[2018-09-19] MEDS: HEPARIN SODIUM,PORCINE 5,000 UNIT/ML 1 ML VIAL SQ SCH ×2 (07:47→20:21)
[2018-09-19] MEDS: PANTOPRAZOLE 40 MG/10 ML VIAL IVP SCH (07:47)
[2018-09-19] MEDS: metroNIDAZOLE-NS PMX 500 MG in SALINE 1 100ML.BAG IVPB SCH ×2 (07:48→15:57)
[2018-09-19 08:39] LABS: Basophils % (A) 1 %; Eosinophils # (A) 0.2 k/uL (0-0.7); Eosinophils % (A) 3 %; HCT 47.8 % (39.0-53.0); HGB 15.9 gm/dL (13.0-17.5); Lymphocytes # (A) 1.7 k/uL (1.0-4.8); Lymphocytes % (A) 22 %; MCH 30.9 pg (25.0-35.0); MCHC 33.3 g/dL (31.0-37.0); MCV 92.8 fL (80.0-100.0); Mean Platelet Volume 6.7; Monocytes # (A) 0.5 k/uL (0-1.0); Monocytes % (A) 7 %; Neutrophils # (A) 4.9 k/uL (1.3-7.7); Neutrophils % (A) 66 %; Platelet Count 231 k/uL (150-450); RBC 5.15 m/uL (4.30-5.90); RDW 12.8 % (11.5-15.5); WBC 7.5 k/uL (3.8-10.6)
[2018-09-19 08:51] LABS: ALT 131 U/L (21-72); AST 59 U/L (17-59); Albumin 3.9 g/dL (3.5-5.0); Alkaline Phosphatase 59 U/L (38-126); Anion Gap 7 mmol/L; Blood Urea Nitrogen 8 mg/dL (9-20); Calcium 9.2 mg/dL (8.4-10.2); Carbon Dioxide 29 mmol/L (22-30); Chloride 105 mmol/L (98-107); Glucose 102 mg/dL (74-99); Potassium 4.1 mmol/L (3.5-5.1); Sodium 141 mmol/L (137-145); Total Bilirubin 0.6 mg/dL (0.2-1.3); Total Protein 6.8 g/dL (6.3-8.2)
--- NOTE | 2018-09-19 13:44 | P.PN ---
Subjective This is a pleasant 38 years old male who lives with his dad. Presents with diffuse abdominal pain suspicious for colitis. Patient has been evaluated by gastroenterology already. He is improving slowly. Today patient still complaining of from periumbilical abdominal pain which is significant as per patient, patient describes the pain as sharp and nonradiating.. However he is having bowel movement and he is eating and tolerating diet well. Case was discussed with the GI team today. Patient states tolerating diet well. We will decrease his Dilaudid. 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 We'll continue with [place] for now and keep monitoring. Objective - Vital Signs Vital signs: Vital Signs Temp 97.9 F 09/19/18 07:53 Pulse 82 09/19/18 07:53 Resp 16 09/19/18 07:53 BP 134/76 09/19/18 07:53 Pulse Ox 94 L 09/19/18 07:53 Intake & Output 09/18/18 09/19/18 09/19/18 18:59 06:59 18:59 Intake Total 1600 1330 Balance 1600 1330 Intake: Intake, IV Titration 1000 850 Amount Sodium Chloride 0.9% 1, 1000 750 000 ml @ 75 mls/hr IV . [id number] [facility] Rx#:[id number] metroNIDAZOLE-NS PMX 500 100 mg In Saline 1 100ml.bag @ 100 mls/hr IVPB Q8HR [facility] Rx#:[id number] Oral 200 480 Other 400 Other: # Voids 3 - Exam GENERAL: The patient is alert and oriented x3, not in any acute distress. Well developed, well nourished. HEENT: Pupils are round and equally reacting to light. EOMI. No scleral icterus. No conjunctival pallor. Normocephalic, atraumatic. No pharyngeal erythema. No thyromegaly. CARDIOVASCULAR: S1 and S2 present. No murmurs, rubs, or gallops. PULMONARY: Chest is clear to auscultation, no wheezing or crackles. -ABDOMEN: Soft, mild periumbilical tenderness with no rebound tenderness or guarding, nondistended, normoactive bowel sounds. No palpable organomegaly. MUSCULOSKELETAL: No joint swelling or deformity. EXTREMITIES: No cyanosis, clubbing, or pedal edema. NEUROLOGICAL: Gross neurological examination did not reveal any focal deficits. SKIN: No rashes. - Labs CBC & Chem 7: 09/19/18 07:53 09/19/18 07:53 Labs: Abnormal Lab Results - Last 24 Hours (Table) 09/19/18 Range/Units 07:53 BUN 8 L (9-20) mg/dL Glucose 102 H (74-99) mg/dL ALT 131 H (21-72) U/L Assessment and Plan Assessment: Diffuse abdominal pain with possible colitis or ileus Elevated liver enzymes, results History of developmental delay History of gastroesophageal reflux disease and History of cholecystectomy History of kidney mass and cancer Plan: This is a pleasant 38 years old who presents with colitis. Continue with antibiotics and IV fluids. Downgrade pain management.Labs and medication were reviewed.. Continue same treatment. Continue with symptomatic treatment. Resume home medication. Monitor lytes and vitals. DVT and GI prophylaxis. Further recommendations of the clinical course of the patient DVT prophylaxis: Subcutaneous heparin GI Prophylaxis: Pepcid Prognosis is [id number]
[2018-09-19] MEDS: PANTOPRAZOLE 40 MG TABLET PO SCH (15:57)
[2018-09-19] MEDS: DICYCLOMINE 10 MG CAP PO PRN ×2 (16:43→21:53)
[2018-09-19] MEDS: MORPHINE SULFATE 4 MG/ML SYRINGE IVP PRN ×2 (18:23→21:54)
[2018-09-19] MEDS ORDERED: KETOROLAC 30 MG/ML 1 ML VIAL IVP STA (19:37)
[2018-09-19] MEDS ORDERED: FAMOTIDINE 20 MG/2 ML VIAL IV SCH (21:00)
[2018-09-19] MEDS: LEVOFLOXACIN 500 MG TAB PO SCH (23:53)
[2018-09-19] MEDS: metroNIDAZOLE 500 MG TAB PO SCH (23:53)
[2018-09-20] MEDS: LEVOTHYROXINE 50 MCG TAB PO SCH (05:37)
--- NOTE | 2018-09-20 08:00 | P.PN ---
Subjective Progress Note Date: 09/19/18 Principal diagnosis: Abdominal pain Patient reports feeling better overall. Still having some right-sided abdominal pain. No nausea or vomiting. Tolerating diet. Objective - Vital Signs Vital signs: Vital Signs Temp 97.4 F L 09/20/18 00:41 Pulse 83 09/20/18 03:49 Resp 16 09/20/18 03:49 BP 128/86 09/20/18 00:41 Pulse Ox 94 L 09/20/18 00:41 Intake & Output 09/19/18 09/20/18 09/20/18 18:59 06:59 18:59 Intake Total 1200 Balance 1200 Intake: Intake, IV Titration 1000 Amount Sodium Chloride 0.9% 1, 1000 000 ml @ 75 mls/hr IV . [id number] [facility] Rx#:[id number] Other 200 Other: Voiding Method Toilet # Voids 3 - Exam On physical examination, patient appears comfortable in no apparent distress. HEAD: Normocephalic, atraumatic. EYES: No scleral icterus. No conjunctival injection. MOUTH: No lesions, tongue midline. NECK: Trachea midline, no gross abnormalities. CHEST: Clear to auscultation with no wheezing or rhonchi appreciated. HEART: Regular rate and rhythm. ABDOMEN: Soft. Bowel sounds are positive. No organomegaly. No guarding or rigidity. EXTREMITIES: No pedal edema. SKIN: No rashes, no jaundice. NEUROLOGIC: Alert and oriented. No focal deficits. - Labs CBC & Chem 7: 09/19/18 07:53 09/19/18 07:53 Labs: Abnormal Lab Results - Last 24 Hours (Table) 09/19/18 Range/Units 07:53 BUN 8 L (9-20) mg/dL Glucose 102 H (74-99) mg/dL ALT 131 H (21-72) U/L Assessment and Plan (1) Abdominal pain Narrative/Plan: Patient presenting with abdominal pain of unknown etiology. There were CT findings of thickening of the cecum suggestive of a possible colitis. Currently he is receiving antibiotic treatment with some improvement of symptoms. Current Visit: Yes Status: Acute Code(s): R10.9 - UNSPECIFIED ABDOMINAL PAIN SNOMED Code(s): 10119069 Plan: Supportive care Okay for low residual diet Continue antibiotic therapy Okay for Bentyl as needed. Outpatient follow-up with gastroenterology after discharge for scheduling of colonoscopy in 4-6 weeks for evaluation of abnormal CT findings Thank you for allowing us to participate in the care of this patient we will continue to follow
[2018-09-20 08:27] LABS: Basophils % (A) 1 %; Eosinophils # (A) 0.3 k/uL (0-0.7); Eosinophils % (A) 4 %; HCT 47.4 % (39.0-53.0); HGB 15.9 gm/dL (13.0-17.5); Lymphocytes # (A) 1.4 k/uL (1.0-4.8); Lymphocytes % (A) 18 %; MCH 31.2 pg (25.0-35.0); MCHC 33.6 g/dL (31.0-37.0); MCV 92.9 fL (80.0-100.0); Mean Platelet Volume 6.4; Monocytes # (A) 0.5 k/uL (0-1.0); Monocytes % (A) 6 %; Neutrophils # (A) 5.4 k/uL (1.3-7.7); Neutrophils % (A) 70 %; Platelet Count 240 k/uL (150-450); WBC 7.7 k/uL (3.8-10.6)
[2018-09-20 08:36] LABS: ALT 147 U/L (21-72); AST 106 U/L (17-59); Alkaline Phosphatase 61 U/L (38-126); Anion Gap 6 mmol/L; Blood Urea Nitrogen 10 mg/dL (9-20); Calcium 9.1 mg/dL (8.4-10.2); Carbon Dioxide 30 mmol/L (22-30); Chloride 105 mmol/L (98-107); Glucose 82 mg/dL (74-99); Potassium 4.4 mmol/L (3.5-5.1); Sodium 141 mmol/L (137-145); Total Bilirubin 0.6 mg/dL (0.2-1.3); Total Protein 6.9 g/dL (6.3-8.2)
[2018-09-20] MEDS: PANTOPRAZOLE 40 MG TABLET PO SCH ×2 (08:52→16:51)
[2018-09-20] MEDS: HEPARIN SODIUM,PORCINE 5,000 UNIT/ML 1 ML VIAL SQ SCH ×2 (08:52→20:22)
[2018-09-20] MEDS: MORPHINE SULFATE 4 MG/ML SYRINGE IVP PRN (09:56)
[2018-09-20] MEDS: metroNIDAZOLE 500 MG TAB PO SCH ×3 (10:04→23:25)
[2018-09-20] MEDS: HYDROcodone/APAP 5-325MG 1 EACH TAB PO PRN (11:21)
[2018-09-20] MEDS ORDERED: ACETAMINOPHEN TAB 500 MG TAB PO PRN (11:25)
[2018-09-20] MEDS ORDERED: traMADol 50 MG TAB PO PRN (11:26)
[2018-09-20] MEDS ORDERED: POLYETHYLENE GLYCOL 3350 17 GM POWD.PACK PO PRN (11:30)
[2018-09-20] MEDS ORDERED: SENNOSIDES 8.6 MG TAB PO PRN (11:30)
--- NOTE | 2018-09-20 14:30 | P.PN ---
Subjective 38-year-old admitted for from colitis for which patient is on antibiotics. She is able to tolerate diet although bit constipated Bentyl will be discontinued opiates will be disc patient will be started on nonsteroidal anti-inflammatories Pain. Patient is still complaining of pain. Although not a very reliable historian because of his mental issues. 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 His father is concerned because of his pain patient may come back because of these concerns of hold his discharge today. Continue with IV antibiotics will be discharged on oral antibiotics. Will use MiraLAX and senna for constipation 1C [place] bowel probably can be discharged on oral pain medications. His of the father's concerns and patient's continued pain, patient will stay in the hospital on IV antibiotics today. Constitutional: Denied any fatigue denied any fever. Cardio vascular: denied any chest pain, palpitations Gastrointestinal as mentioned in HPI Pulmonary: Denied any shortness of breath cough Neurologic denied any new focal deficits All inpatient medications were reviewed and appropriate changes in these medications as dictated in the interval history and assessment and plan. Objective - Vital Signs Vital signs: Vital Signs Temp 98.0 F 09/20/18 07:00 Pulse 101 H 09/20/18 08:52 Resp 18 09/20/18 08:52 BP 151/101 09/20/18 07:00 Pulse Ox 98 09/20/18 07:00 Intake & Output 09/19/18 09/20/18 09/20/18 18:59 06:59 18:59 Intake Total 1200 Balance 1200 Intake: Intake, IV Titration 1000 Amount Sodium Chloride 0.9% 1, 1000 000 ml @ 75 mls/hr IV . [id number] [facility] Rx#:[id number] Other 200 Other: Voiding Method Toilet Toilet # Voids 3 - Exam PHYSICAL EXAMINATION: GENERAL: The patient is alert and oriented x3, not in any acute distress. Obese HEENT: Pupils are round and equally reacting to light. EOMI. No scleral icterus. No conjunctival pallor. Normocephalic, atraumatic. No pharyngeal erythema. No thyromegaly. CARDIOVASCULAR: S1 and S2 present. No murmurs, rubs, or gallops. PULMONARY: Chest is clear to auscultation, no wheezing or crackles. ABDOMEN: Soft, nontender, nondistended, normoactive bowel sounds. No palpable organomegaly. MUSCULOSKELETAL: No joint swelling or deformity. EXTREMITIES: No cyanosis, clubbing, or pedal edema. NEUROLOGICAL: Gross neurological examination did not reveal any focal deficits. SKIN: No rashes. 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
[2018-09-20] MEDS: POLYETHYLENE GLYCOL 3350 17 GM POWD.PACK PO SCH (15:20)
[2018-09-20] MEDS: SODIUM CHLORIDE 0.9% 1,000 ML IV SCH (16:53)
[2018-09-20] MEDS: LEVOFLOXACIN 500 MG TAB PO SCH (23:24)
[2018-09-21] MEDS: SODIUM CHLORIDE 0.9% 1,000 ML IV SCH (02:23)
[2018-09-21] MEDS: LEVOTHYROXINE 50 MCG TAB PO SCH (05:31)
[2018-09-21 07:41] VITALS: BP 166/76; PULSE 87; RESP 16; TEMP 98
[2018-09-21 08:05] LABS: ALT 140 U/L (21-72); AST 90 U/L (17-59); Alkaline Phosphatase 64 U/L (38-126); Anion Gap 10 mmol/L; Blood Urea Nitrogen 9 mg/dL (9-20); Calcium 9.4 mg/dL (8.4-10.2); Carbon Dioxide 27 mmol/L (22-30); Chloride 106 mmol/L (98-107); Glucose 90 mg/dL (74-99); Potassium 4.1 mmol/L (3.5-5.1); Sodium 143 mmol/L (137-145); Total Bilirubin 0.7 mg/dL (0.2-1.3)
[2018-09-21 08:36] LABS: Basophils % (A) 0 %; Eosinophils # (A) 0.1 k/uL (0-0.7); Eosinophils % (A) 1 %; HCT 46.5 % (39.0-53.0); HGB 15.9 gm/dL (13.0-17.5); Lymphocytes # (A) 1.3 k/uL (1.0-4.8); Lymphocytes % (A) 16 %; MCH 31.6 pg (25.0-35.0); MCHC 34.2 g/dL (31.0-37.0); MCV 92.3 fL (80.0-100.0); Mean Platelet Volume 6.9; Monocytes # (A) 0.5 k/uL (0-1.0); Monocytes % (A) 6 %; Neutrophils % (A) 75 %; Platelet Count 236 k/uL (150-450); RBC 5.04 m/uL (4.30-5.90); RDW 13.2 % (11.5-15.5)
[2018-09-21] MEDS: POLYETHYLENE GLYCOL 3350 17 GM POWD.PACK PO SCH (08:43)
[2018-09-21] MEDS: PANTOPRAZOLE 40 MG TABLET PO SCH (08:44)
[2018-09-21] MEDS: HEPARIN SODIUM,PORCINE 5,000 UNIT/ML 1 ML VIAL SQ SCH (08:44)
[2018-09-21] MEDS: metroNIDAZOLE 500 MG TAB PO SCH (08:44)
--- NOTE | 2018-09-21 12:08 | P.DS ---
Providers Date of admission: 09/16/18 01:55 Attending physician: Kristen Vasquez Primary care physician: Gracie [facility] Course: 38-year-old admitted for from colitis for which patient is on antibiotics. She is able to tolerate diet although bit constipated Bentyl will be discontinued opiates will be disc patient will be started on nonsteroidal anti-inflammatories Pain. Patient is still complaining of pain. Although not a very reliable historian because of his mental issues. 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 His father is concerned because of his pain patient may come back because of these concerns of hold his discharge today. Continue with IV antibiotics will be discharged on oral antibiotics. Will use MiraLAX and senna for constipation 1C [place] bowel probably can be discharged on oral pain medications. His of the father's concerns and patient's continued pain, patient will stay in the hospital on IV antibiotics today. 09/21/2018 Patient had a bowel movement patient pain completely resolved feeling well wanted to go home patient will be discharged on 5 days of oral antibiotics for her ears colitis probably infectious. PHYSICAL EXAMINATION: GENERAL: The patient is alert and oriented x3, not in any acute distress. Obese HEENT: Pupils are round and equally reacting to light. EOMI. No scleral icterus. No conjunctival pallor. Normocephalic, atraumatic. No pharyngeal erythema. No thyromegaly. CARDIOVASCULAR: S1 and S2 present. No murmurs, rubs, or gallops. PULMONARY: Chest is clear to auscultation, no wheezing or crackles. ABDOMEN: Soft, nontender, nondistended, normoactive bowel sounds. No palpable organomegaly. MUSCULOSKELETAL: No joint swelling or deformity. EXTREMITIES: No cyanosis, clubbing, or pedal edema. NEUROLOGICAL: Gross neurological examination did not reveal any focal deficits. SKIN: No rashes. 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 liver enzymes are bit better compared to yesterday -Developmental delay -Gastroesophageal reflux disease Patient Condition at Discharge: Serious Plan - Discharge Summary Discharge Rx Participant: Yes New Discharge Prescriptions: New Ciprofloxacin HCl [Cipro] 500 mg PO Q12H 5 Days #10 tab metroNIDAZOLE [Flagyl] 500 mg PO TID #14 tab Discontinued Dicyclomine [Bentyl] 20 mg PO TID No Action Levothyroxine Sodium [Synthroid] 50 mcg PO DAILY Omeprazole [PriLOSEC] 20 mg PO DAILY Discharge Medication List Levothyroxine Sodium [Synthroid] 50 mcg PO DAILY 09/02/14 [History] Omeprazole [PriLOSEC] 20 mg PO DAILY 02/03/17 [History] Ciprofloxacin HCl [Cipro] 500 mg PO Q12H 5 Days #10 tab 09/21/18 [Rx] metroNIDAZOLE [Flagyl] 500 mg PO TID #14 tab 09/21/18 [Rx] Follow up Appointment(s)/Referral(s): Gracie Zhao MD [Primary Care Provider] - 09/23/18 11:15 am Marina Luther PAC [REFERRING] - 10/13/18 9:30 am Patient Instructions/Handouts: Microscopic Colitis (DC), Ileus (DC) Discharge Disposition: HOME SELF-CARE
== END 2018-09-21 12:36 | disposition home or self-care (01) ==
LOC: EC 22:52 → 4SSUR 09-16 01:55
PROVIDERS: ADMIT Hospitalist; ATTEND Hospitalist
DX: K52.9 Noninfective gastroenteritis and colitis, unspecified (principal); B17.9 Acute viral hepatitis, unspecified; R62.50 Unspecified lack of expected normal physiological development in childhood; K21.9 Gastro-esophageal reflux disease without esophagitis; N28.89 Other specified disorders of kidney and ureter; K59.00 Constipation, unspecified; Z83.3 Family history of diabetes mellitus; Z85.528 Personal history of other malignant neoplasm of kidney; Z90.49 Acquired absence of other specified parts of digestive tract; E03.9 Hypothyroidism, unspecified; Z79.890 Hormone replacement therapy; Z79.899 Other long term (current) drug therapy; R74.8 Abnormal levels of other serum enzymes
CPT/HCPCS: 96375 ×5; 96361 ×11; 96376 ×6; 96365 ×2; 96372 ×7; 99285 ×2; 96366 ×3; 96368 ×2; 36415; 93005; 80053 ×6; 80074; 82150; 83605; 83690; 84484; 85025 ×6; 81001; 71046; 74018; 74176; G0378 ×6; J2270 ×6; J0500; J1644 ×5; J2405; J1956 ×2; J1885 ×4; C9113 ×3

== ENCOUNTER 2018-09-25 22:19 | Emergency (ER) | payer MEDICARE, OTHER ==
[2018-09-25 22:46] VITALS: BP 140/106; PULSE 103; RESP 16; TEMP 98.5
--- NOTE | 2018-09-25 23:13 | ED ---
General Adult HPI - General Chief complaint: Recheck/Abnormal Lab/Rx Stated complaint: Hematoma Time Seen by Provider: 09/25/18 22:59 Source: patient, family Mode of arrival: ambulatory Limitations: altered mental status - History of Present Illness Initial comments: Patient is a 38-year-old male who presents with a chief complaint of bruising on the abdomen. Patient was discharged from the hospital about 4 days ago where he was evaluated for abdominal pain and colitis. While in the hospital it appears the patient was getting heparin shots subcu. The patient denies any pain presently. He states he has been doing well since leaving the hospital. There are no other complaints today. He has a history of developmental delay, renal tumor with subsequent surgery. - Related Data Home Medications Medication Instructions Recorded Confirmed Levothyroxine Sodium [Synthroid] 50 mcg PO DAILY 09/02/14 09/15/18 Omeprazole [PriLOSEC] 20 mg PO DAILY 02/03/17 09/15/18 Previous Rx's Medication Instructions Recorded Ciprofloxacin HCl [Cipro] 500 mg PO Q12H 5 Days #10 tab 09/21/18 metroNIDAZOLE [Flagyl] 500 mg PO TID #14 tab 09/21/18 Allergies Allergy/AdvReac Type Severity Reaction Status Date / Time No Known Allergies Allergy Verified 09/25/18 22:42 Review of Systems ROS Statement: Those systems with pertinent positive or pertinent negative responses have been documented in the HPI. ROS Other: All systems not noted in ROS Statement are negative. Hematological/Lymphatic: Reports: easy bruising Past Medical History Past Medical History: Cancer, GERD/Reflux, Thyroid Disorder Additional Past Medical History / Comment(s): DEVELOPMENTALLY DELAYED- COGNITIVE FUNCTION AT 11-12 YEAR OLD.,. ABDOMINAL PAIN , KIDNEY CANCER History of Any Multi-Drug Resistant Organisms: None Reported Past Surgical History: Cholecystectomy Additional Past Surgical History / Comment(s): KIDNEY SURGERY-MASS REMOVED Past Anesthesia/Blood Transfusion Reactions: Previous Problems w/ Anesthesia Additional Past Anesthesia/Blood Transfusion Reaction / Comment(s): DIFFICULT INTUBATION - WILL BRING LETTER Past Psychological History: No Psychological Hx Reported Smoking Status: Never smoker Past Alcohol Use History: None Reported Past Drug Use History: None Reported - Past Family History Mother History Unknown: Yes Family Medical History: No Reported History Father Family Medical History: Diabetes Mellitus Additional Family Medical History / Comment(s): neuropathy General Exam Limitations: altered mental status General appearance: alert, in no apparent distress Head exam: Present: atraumatic, normocephalic Eye exam: Present: normal appearance, PERRL, EOMI ENT exam: Present: normal exam Neck exam: Present: normal inspection Respiratory exam: Present: normal lung sounds bilaterally. Absent: respiratory distress, wheezes Cardiovascular Exam: Present: regular rate, normal rhythm GI/Abdominal exam: Present: soft, other (patient has bruises on his abdomen secondary to heparin shots from last admission). Absent: distended, tenderness Rectal exam: Present: deferred Extremities exam: Present: normal inspection Back exam: Present: normal inspection Neurological exam: Present: alert, oriented X3 Psychiatric exam: Present: normal affect, normal mood Skin exam: Present: warm, dry, intact Course Vital Signs 09/25/18 22:37 Temperature 98.5 F Pulse Rate 103 H Respiratory 16 Rate Blood Pressure 140/106 O2 Sat by Pulse 94 L Oximetry Medical Decision Making - Medical Decision Making Patient presents for evaluation of bruising on the abdomen. There is appears consistent with heparin injection sites. Review of records shows the patient was receiving subcutaneous heparin in the hospital last. He otherwise is not having any abdominal pain and states that he has been doing well since discharge. The family and the patient was reassured that this is likely secondary to the medication, and that it will not cause problems. Patient was instructed to follow up with primary care 1-2 days, return to the ED if symptoms worsen or change. Disposition Clinical Impression: Bruising Disposition: HOME SELF-CARE Condition: Good Is patient prescribed a controlled substance at d/c from ED?: No Referrals: Gracie Zhao MD [Primary Care Provider] - 1-2 days
== END 2018-09-25 23:19 | disposition home or self-care (01) ==
LOC: EC 22:19
DX: S30.1XXA Contusion of abdominal wall, initial encounter (principal); K21.9 Gastro-esophageal reflux disease without esophagitis; E07.9 Disorder of thyroid, unspecified; Z85.528 Personal history of other malignant neoplasm of kidney; Z90.49 Acquired absence of other specified parts of digestive tract; Z79.890 Hormone replacement therapy; Z79.899 Other long term (current) drug therapy; X58.XXXA Exposure to other specified factors, initial encounter
CPT/HCPCS: 99283

== ENCOUNTER → 2018-10-07 | Outpatient (CLI) | payer MEDICARE, OTHER ==
--- NOTE | 2018-10-07 11:33 | CT ---
EXAMINATION TYPE: CT brain wo con, CT sinus wo con DATE OF EXAM: 10/07/2018 COMPARISON: MRI brain January 31, 2018 and November 25, 2017. HISTORY: FLYNN, lightheaded CT DLP: 995.5 (accession [id number]), 373.5 (accession [id number]) mGycm. Automated Exposure Control for Dose Reduction was Utilized. TECHNIQUE: CT scan of the head an sinuses are performed without contrast. FINDINGS: There is no acute intracranial hemorrhage or midline shift identified. There is mild sulc al prominence over the bilateral frontal lobes redemonstrated. Ventricle size is stable and within no rmal limits. Panchal-white matter differentiation is fairly well preserved. There is mild to moderate mucosal thickening inferiorly in the right frontal sinus and mild mucosal t hickening inferiorly in the left frontal sinus. There is moderate mucosal thickening involving ethmoi d sinuses bilaterally. There is anterior focal mild to moderate mucosal thickening in the bilateral s phenoid sinuses and mild mucosal thickening in the bilateral maxillary sinuses, right greater than le ft. The ostiomeatal complex is patent bilaterally on coronal image 20, there is some asymmetric left- sided narrowing due to antral mucosal thickening on the left seen. The globes are intact bilaterally. IMPRESSION: 1. No acute intracranial hemorrhage or midline shift is seen. Stable mild to minimal bilateral fronta l lobe atrophy. 2. Chronic paranasal sinus disease as detailed above more prominent from 2018 MRI. No acute sinusitis currently identified.
== END | disposition home or self-care (01) ==
LOC: RADCTMAIN 10:54
PROVIDERS: ATTEND Family Medicine
DX: G31.9 Degenerative disease of nervous system, unspecified (principal); J32.9 Chronic sinusitis, unspecified; R51 Headache; R42 Dizziness and giddiness; R68.83 Chills (without fever)
CPT/HCPCS: 70450; 70486; 87502

== ENCOUNTER → 2018-10-13 | Outpatient (CLI) | payer MEDICARE, OTHER ==
[2018-10-13 11:13] LABS: HCT 49.8 % (39.0-53.0); HGB 17.1 gm/dL (13.0-17.5); MCHC 34.4 g/dL (31.0-37.0); MCV 93.1 fL (80.0-100.0); Mean Platelet Volume 6.9; Platelet Count 244 k/uL (150-450); RBC 5.35 m/uL (4.30-5.90); WBC 8.1 k/uL (3.8-10.6)
[2018-10-13 11:30] LABS: Prothrombin Time 10.7 sec (9.0-12.0)
[2018-10-13 16:21] LABS: ALT 86 U/L (10-49); AST 39 U/L (14-35); Albumin/Globulin Ratio 1.81 (1.60-3.17); Alkaline Phosphatase 93 U/L (41-126); Bilirubin, Conjugated <0.20 mg/dL (0.20-0.40); Globulin 2.6 g/dL (1.6-3.3); Total Bilirubin 0.4 mg/dL (0.3-1.2); Total Protein 7.3 g/dL (6.2-8.2)
[2018-10-13 16:51] LABS: Iron Saturation 21.02 (15.00-50.00); Protein, Total 7.1 g/dL (6.2-8.2)
[2018-10-14 12:46] LABS: Ceruloplasmin 24.8 mg/dL (20.0-60.0)
[2018-10-14 13:22] LABS: Albumin 4.17 g/dL (3.80-4.90); Gamma Globulin 1.14 g/dL (0.70-1.50)
== END | disposition home or self-care (01) ==
LOC: LABWHC1 10:35
PROVIDERS: ATTEND Physician Assistant
DX: R74.8 Abnormal levels of other serum enzymes (principal)
CPT/HCPCS: 36415; 80076; 82390; 82728; 83516; 83540; 83550; 84165; 85027; 85610; 86038

== ENCOUNTER 2018-10-23 16:05 | Emergency (ER) | payer MEDICARE, OTHER ==
[2018-10-23] MEDS ORDERED: SODIUM CHLORIDE 0.9% 1,000 ML IV STA (16:28)
--- NOTE | 2018-10-23 17:18 | ED ---
Abdominal Pain HPI - General Chief Complaint: Abdominal Pain Stated Complaint: Abd Pain Time Seen by Provider: 10/23/18 16:25 Source: patient, family Mode of arrival: ambulatory Limitations: no limitations - History of Present Illness Initial Comments: 38-year-old male past history of cholecystectomy, UTI and renal carcinoma presenting today for cc of abdominal pain. Pt states that after eating a burger around 12PM he began experiencing 10/10 abdominal pain. Pt last bowel movement was earlier today, he states small denied melena, diarrhea, hematochezia. In addition patient had 2 episodes of nausea with vomiting. No hematemesis according to fixture fabricator repairer. Patient states that all pain is slightly better. Patient does not appear in acute distress. Patient denies any recent fever, chills, shortness of breath, chest pain, back pain, numbness or tingling, dysuria or hematuria, constipation or diarrhea, headaches or visual changes, or any other complaints. Upon arrival pt appears well, no acute distress. Obvious developmental delays upon history taking. History was obtained from both patient and father. - Related Data Home Medications Medication Instructions Recorded Confirmed Levothyroxine Sodium [Synthroid] 50 mcg PO DAILY 09/02/14 10/23/18 Omeprazole [PriLOSEC] 20 mg PO DAILY 02/03/17 10/23/18 Dicyclomine [Bentyl] 10 mg PO TID 10/23/18 10/23/18 Allergies Allergy/AdvReac Type Severity Reaction Status Date / Time No Known Allergies Allergy Verified 10/23/18 16:44 Review of Systems ROS Statement: Those systems with pertinent positive or pertinent negative responses have been documented in the HPI. ROS Other: All systems not noted in ROS Statement are negative. 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 ABDOMINAL PAIN , KIDNEY CANCER History of Any Multi-Drug Resistant Organisms: None Reported Past Surgical History: Cholecystectomy Additional Past Surgical History / Comment(s): KIDNEY SURGERY-MASS REMOVED Past Anesthesia/Blood Transfusion Reactions: Previous Problems w/ Anesthesia Additional Past Anesthesia/Blood Transfusion Reaction / Comment(s): DIFFICULT INTUBATION - WILL BRING LETTER Past Psychological History: No Psychological Hx Reported Smoking Status: Never smoker Past Alcohol Use History: None Reported Past Drug Use History: None Reported - Past Family History Mother History Unknown: Yes Family Medical History: No Reported History Father Family Medical History: Diabetes Mellitus Additional Family Medical History / Comment(s): neuropathy General Exam - General Exam Comments Initial Comments: General: The patient is awake and alert, in no distress, and does not appear acutely ill. Eye: Pupils are equal, round and reactive to light, extra-ocular movements are intact. No nystagmus. There is normal conjunctiva bilaterally. No signs of icterus. Ears, nose, mouth and throat: There are moist mucous membranes and no oral lesions. Neck: The neck is supple, there is no tenderness or JVD. Cardiovascular: There is a regular rate and rhythm. No murmur, rub or gallop is appreciated. Respiratory: Lungs are clear to auscultation, respirations are non-labored, breath sounds are equal. No wheezes, stridor, rales, or rhonchi. Gastrointestinal: Scar present RUQ. Soft, non-distended, mildy diffusely- tender to deep palpation abdomen without masses or organomegaly noted. There is no rebound or guarding present. No CVA tenderness. Bowel sounds are unremarkable. Musculoskeletal: Normal ROM, no tenderness. Strength 5/5. Sensation intact. Pulses equal bilaterally 2+. Neurological: A&O x 3. CN II-XII intact, There are no obvious motor or sensory deficits. Coordination appears grossly intact. Speech is normal. Skin: Skin is warm and dry and no rashes or lesions are noted. Psychiatric: Cooperative, appropriate mood & affect, normal judgment. Limitations: no limitations Course Vital Signs 10/23/18 16:09 Temperature 98.3 F Pulse Rate 115 H Respiratory 18 Rate Blood Pressure 161/112 O2 Sat by Pulse 97 Oximetry Medical Decision Making - Medical Decision Making Well-appearing 38-year-old male. Laboratory findings unremarkable. No leukocytosis. Abdominal exam did not reveal any rigidity or guarding however given patient developed lady CT of the abdomen without contrast was obtained. Negative for acute intra-abdominal process. Patient appears well. Upon reexamination, patient states symptoms have improved greatly. At this time do feel patient is stable for discharge with outpatient follow-up and strict return parameters for any worsening symptoms. Differential diagnosis of nonspecific abdominal pain is gastroenteritis. Patient is having bowel movements. Tolerating PO intake. Father is agreeable discharge and plan. I did discuss the case attending provider Dr. Wood who agreed with impression and plan. Pt discharged appearing well. - Lab Data Result diagrams: 10/23/18 17:28 10/23/18 17:28 Lab Results 10/23/18 10/23/18 10/23/18 Range/Units 17:28 17:28 17:33 WBC 8.2 (3.8-10.6) k/uL RBC 5.36 (4.30-5.90) m/uL Hgb 17.1 (13.0-17.5) gm/dL Hct 50.5 (39.0-53.0) % MCV 94.2 (80.0-100.0) fL MCH 32.0 (25.0-35.0) pg MCHC 33.9 (31.0-37.0) g/dL RDW 12.9 (11.5-15.5) % Plt Count 241 (150-450) k/uL Neutrophils % 80 % Lymphocytes % 12 % Monocytes % 5 % Eosinophils % 2 % Basophils % 1 % Neutrophils # 6.5 (1.3-7.7) k/uL Lymphocytes # 1.0 (1.0-4.8) k/uL Monocytes # 0.4 (0-1.0) k/uL Eosinophils # 0.2 (0-0.7) k/uL Basophils # 0.0 (0-0.2) k/uL Sodium 141 (137-145) mmol/L Potassium 4.2 (3.5-5.1) mmol/L Chloride 103 (98-107) mmol/L Carbon Dioxide 30 (22-30) mmol/L Anion Gap 8 mmol/L BUN 10 (9-20) mg/dL Creatinine 1.05 (0.66-1.25) mg/dL Est GFR (CKD-EPI)AfAm >90 (>60 ml/min/1.73 sqM) Est GFR (CKD-EPI)NonAf >90 (>60 ml/min/1.73 sqM) Glucose 138 H (74-99) mg/dL Calcium 9.7 (8.4-10.2) mg/dL Total Bilirubin 0.6 (0.2-1.3) mg/dL AST 41 (17-59) U/L ALT 76 H (21-72) U/L Alkaline Phosphatase 81 (38-126) U/L Total Protein 7.6 (6.3-8.2) g/dL Albumin 4.4 (3.5-5.0) g/dL Amylase 36 (30-110) U/L Lipase 73 (23-300) U/L Urine Color Yellow Urine Appearance Clear (Clear) Urine pH 6.0 (5.0-8.0) Ur Specific [place] 1.007 (1.001-1.035) Urine Protein Negative (Negative) Urine Glucose (UA) Negative (Negative) Urine Ketones Negative (Negative) Urine Blood Negative (Negative) Urine Nitrite Negative (Negative) Urine Bilirubin Negative (Negative) Urine Urobilinogen <2.0 (<2.0) mg/dL Ur Leukocyte Esterase Negative (Negative) Disposition Clinical Impression: Abdominal pain, Nausea and vomiting Disposition: HOME SELF-CARE Condition: Good Instructions (If sedation given, give patient instructions): Abdominal Pain (ED ) Additional Instructions: Please use medication as discussed. Please follow-up with family doctor in the next 2 days.. Please return to emergency room if the symptoms increase or worsen or for any other concerns. Is patient prescribed a controlled substance at d/c from ED?: No Referrals: Gracie Zhao MD [Primary Care Provider] - 1-2 days Time of Disposition: 19:18
[2018-10-23 17:38] LABS: Basophils % (A) 1 %; Eosinophils # (A) 0.2 k/uL (0-0.7); Eosinophils % (A) 2 %; HCT 50.5 % (39.0-53.0); HGB 17.1 gm/dL (13.0-17.5); Lymphocytes % (A) 12 %; MCHC 33.9 g/dL (31.0-37.0); MCV 94.2 fL (80.0-100.0); Mean Platelet Volume 6.9; Monocytes # (A) 0.4 k/uL (0-1.0); Monocytes % (A) 5 %; Neutrophils # (A) 6.5 k/uL (1.3-7.7); Neutrophils % (A) 80 %; Platelet Count 241 k/uL (150-450); RBC 5.36 m/uL (4.30-5.90); RDW 12.9 % (11.5-15.5); WBC 8.2 k/uL (3.8-10.6)
[2018-10-23 17:42] LABS: Appearance,Urine Clear (Clear); Bilirubin,Urine Negative (Negative); Blood,Urine Negative (Negative); Color,Urine Yellow; Glucose,Urine (UA) Negative (Negative); Ketones,Urine Negative (Negative); Leukocyte Esterase,Urine Negative (Negative); Nitrite,Urine Negative (Negative); Protein,Urine Negative (Negative); Specific Gravity,Urine 1.007 (1.001-1.035); Urobilinogen,Urine <2.0 mg/dL (<2.0)
[2018-10-23 17:47] LABS: ALT 76 U/L (21-72); AST 41 U/L (17-59); Albumin 4.4 g/dL (3.5-5.0); Alkaline Phosphatase 81 U/L (38-126); Amylase 36 U/L (30-110); Anion Gap 8 mmol/L; Blood Urea Nitrogen 10 mg/dL (9-20); Calcium 9.7 mg/dL (8.4-10.2); Carbon Dioxide 30 mmol/L (22-30); Chloride 103 mmol/L (98-107); Glucose 138 mg/dL (74-99); Lipase 73 U/L (23-300); Potassium 4.2 mmol/L (3.5-5.1); Sodium 141 mmol/L (137-145); Total Bilirubin 0.6 mg/dL (0.2-1.3); Total Protein 7.6 g/dL (6.3-8.2)
--- NOTE | 2018-10-23 18:07 | XR ---
EXAMINATION TYPE: XR KUB DATE OF EXAM: 10/23/2018 COMPARISON: 09/16/2018 INDICATION: Abdominal pain history of kidney cancer and mass removal TECHNIQUE: Single view abdomen upright view FINDINGS: Colonic bowel gas with scattered air-fluid levels are present. No dilated loops of bowel are evident. No small bowel air is evident. Cholecystectomy clips are in the right upper quadrant. Psoas margins are normal. Organomegaly is not evident. Right renal shadow is better visualized than the left renal shadow. IMPRESSION: 1. Scattered air-fluid levels within the colon. Consider gastroenteritis.
--- NOTE | 2018-10-23 18:29 | CT ---
EXAMINATION TYPE: CT abdomen pelvis w con DATE OF EXAM: 10/23/2018 COMPARISON: 09/16/2018 INDICATION: Mid Abdominal pain today DLP: 1286.9 mGycm, Automated exposure control for dose reduction was used. CONTRAST: 100 mL of Isovue 300. Study performed without Oral Contrast TECHNIQUE: Axial images were obtained from above the diaphragm to the pubic rami in the axial plane a t 5 mm thick sections. Reconstructed images are reviewed on the computer in the coronal plane. FINDINGS: Limited CT sections are obtained the lung bases. The lung bases are clear. CT ABDOMEN: Liver: Normal Spleen: Normal. Splenule is medial to the spleen. Pancreas: Normal Adrenal glands: The adrenal glands are normal. Gallbladder: Surgically absent Kidneys: No masses are evident. No hydronephrosis is present. No cysts are present. Delayed images were obtained through the kidneys, which remain unremarkable. Aorta: Normal Inferior vena cava: Normal. CT PELVIS: Loops of bowel within the abdomen and pelvis are normal. There are loops of bowel which are incom pletely distended or lack oral contrast limiting their evaluation. Lack oral contrast limits evaluati on at the level of the cecum. Cecal wall thickening may not be identified. No suspicious adjacent inf lammatory changes are evident. Appendix: What may be the appendix is normal. No suspicious inflammatory changes are adjacent. Urinary bladder: Normal. Genitourinary structures: Prostate is prominent. Osseous structures: No suspicious lytic or sclerotic lesions. IMPRESSIONS: 1. No suspicious acute changes CT abdomen pelvis. 2. Study is without oral contrast limiting evaluation previous cecal wall thickening. No adjacent inf lammatory changes are evident although cecal wall thickening may not be appreciated on this exam
[2018-10-23 19:40] VITALS: BP 122/91; PULSE 84; RESP 14; TEMP 98
== END 2018-10-23 19:30 | disposition home or self-care (01) ==
LOC: EC 16:05
DX: R10.84 Generalized abdominal pain (principal); R11.2 Nausea with vomiting, unspecified; K21.9 Gastro-esophageal reflux disease without esophagitis; E07.9 Disorder of thyroid, unspecified; Z85.528 Personal history of other malignant neoplasm of kidney; Z79.890 Hormone replacement therapy; Z79.899 Other long term (current) drug therapy; Z90.49 Acquired absence of other specified parts of digestive tract
CPT/HCPCS: 36415; 80053; 82150; 83690; 85025; 81003; 74018; 74177; 99284; 96360; 96361; Q9967

== ENCOUNTER 2018-10-25 18:27 | Emergency (ER) | payer MEDICARE, OTHER ==
[2018-10-25 18:42] VITALS: TEMP 98.1
[2018-10-25] MEDS ORDERED: ONDANSETRON 4 MG/2 ML VIAL IVP STA (20:53)
[2018-10-25 21:18] LABS: Basophils % (A) 0 %; Eosinophils # (A) 0.2 k/uL (0-0.7); Eosinophils % (A) 2 %; HCT 53.1 % (39.0-53.0); HGB 17.3 gm/dL (13.0-17.5); Lymphocytes # (A) 1.4 k/uL (1.0-4.8); Lymphocytes % (A) 12 %; MCH 30.5 pg (25.0-35.0); MCHC 32.6 g/dL (31.0-37.0); MCV 93.7 fL (80.0-100.0); Mean Platelet Volume 6.3; Monocytes # (A) 0.5 k/uL (0-1.0); Monocytes % (A) 5 %; Neutrophils # (A) 9.1 k/uL (1.3-7.7); Neutrophils % (A) 80 %; Platelet Count 237 k/uL (150-450); RBC 5.67 m/uL (4.30-5.90); RDW 12.9 % (11.5-15.5); WBC 11.3 k/uL (3.8-10.6)
--- NOTE | 2018-10-25 21:26 | ED ---
General Adult HPI - General Chief complaint: Abdominal Pain Stated complaint: abd pain Time Seen by Provider: 10/25/18 19:56 Source: patient, family, RN notes reviewed, old records reviewed Mode of arrival: ambulatory Limitations: no limitations - History of Present Illness Initial comments: Chief complaint and history of present illness this is a 38-year-old male here with his father. The patient is developmentally delayed but answers questions properly. The patient was in emergency room several days ago with abdominal pain. That time CAT scan was reported to be negative. Since the patient complained of discomfort today he did eat mashed potatoes on a steak earlier today. Currently no abdominal pain by deep palpation of the abdomen. He had complained of nausea vomiting earlier. Had a bowel movement today. Father gave him some laxatives yesterday. - Related Data Home Medications Medication Instructions Recorded Confirmed Levothyroxine Sodium [Synthroid] 50 mcg PO DAILY 09/02/14 10/25/18 Omeprazole [PriLOSEC] 20 mg PO DAILY 02/03/17 10/25/18 Dicyclomine [Bentyl] 10 mg PO TID 10/23/18 10/25/18 Allergies Allergy/AdvReac Type Severity Reaction Status Date / Time No Known Allergies Allergy Verified 10/25/18 20:59 Review of Systems ROS Statement: Those systems with pertinent positive or pertinent negative responses have been documented in the HPI. Review of systems. Patient's denying any headache no chest pain no shortness breath denying abdominal pain at this time. Denies back pain. Past medical problems significant for kidney cancer with partial nephrectomy. GERD, hypothyroidism and being developmentally delayed. Other surgeries include cholecystectomy. Family history Dr. Hernandez. Nonsmoker nondrinker. ALLERGIES none. ROS Other: All systems not noted in ROS Statement are negative. 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 ABDOMINAL PAIN , KIDNEY CANCER History of Any Multi-Drug Resistant Organisms: None Reported Past Surgical History: Cholecystectomy Additional Past Surgical History / Comment(s): KIDNEY SURGERY-MASS REMOVED Past Anesthesia/Blood Transfusion Reactions: Previous Problems w/ Anesthesia Additional Past Anesthesia/Blood Transfusion Reaction / Comment(s): DIFFICULT INTUBATION - WILL BRING LETTER Past Psychological History: No Psychological Hx Reported Smoking Status: Never smoker Past Alcohol Use History: None Reported Past Drug Use History: None Reported - Past Family History Mother History Unknown: Yes Family Medical History: No Reported History Father Family Medical History: Diabetes Mellitus Additional Family Medical History / Comment(s): neuropathy General Exam - General Exam Comments Initial Comments: General: The patient is awake and alert, states he had abdominal pain earlier points to the periumbilical region. At this time no pain with deep palpation no rebound or referred pain. The patient's vital signs were reviewed. Temperature 98.1 pulse 122 story rate 18 pulse ox 90% room air blood pressure 140/88. Eye: Pupils are equal, round and reactive to light, extra-ocular movements are intact ; there is normal conjunctiva bilaterally. No signs of icterus. Ears, nose, mouth and throat: There are moist mucous membranes and no oral lesions. Neck: The neck is supple, there is no tenderness, no anterior cervical lymphadenopathy. Cardiovascular: Tachycardic heart rate upon arrival. Repeat heart rate is . No murmur appreciated Respiratory: Lungs are clear to auscultation, respirations are non-labored, breath sounds are equal. No wheezes, stridor, rales, or rhonchi. Gastrointestinal: Soft, non-distended, non-tender abdomen without masses or organomegaly noted. There is no rebound or guarding present. No CVA tenderness. Bowel sounds are unremarkable. Deep palpation fails to cause or illicit any signs of discomfort. Patient denies pain. Back: There is no tenderness to palpation in the midline. There is no obvious deformity. No rashes noted. Musculoskeletal: Normal ROM, no tenderness, There is no pedal edema. There is no calf tenderness or swelling. Skin: Skin is warm and dry and no rashes or lesions are noted. Psychiatric: Cooperative, developmentally delayed but answers questions quite appropriately. Limitations: no limitations Course Vital Signs 10/25/18 10/25/18 18:39 21:29 Temperature 98.1 F Pulse Rate 122 H 100 Respiratory 18 16 Rate Blood Pressure 140/88 148/95 O2 Sat by Pulse 98 95 Oximetry Medical Decision Making - Medical Decision Making Medical decision making; is a 38-year-old mentally challenged male here with his father. The patient was in emergency room several days ago with abdominal discomfort at that time CAT scan was negative. He reports some discomfort today nausea no vomiting. Examination emergency room found the patient's abdomen is quite soft no evidence of rebound referred pain organomegaly. Patient's labs show white count 11 hemoglobin 17 hematocrit 53 with a potassium 4.3. BUN 14 creatinine 0.99 with a GFR greater than 90. Glucose 109. Urine shows 3 reds 1 white. No flank pain. Also 3+ ketones. The patient will be hydrated. The patient had an IV started and was given 1 L of fluid with good results. Reexamination at this time finds the patient's abdomen again soft no rebound or referred pain in the patient's denying any abdominal discomfort. X-ray of the abdomen was done. Showing what appears to be normal stool burden, it is thought that the patient might be having some constipation cramps as the father had been given medication to help her have a bowel movement. The cramps are episodic. Awaiting radiologist's final interpretation of the x-ray. The findings per radiology concerning the abdominal series is no gross free air , scattered air-fluid levels are again noted, query enteritis or ileus. No significant small bowel dilatation. Final impression scattered air-fluid levels are again noted, query enteritis or ileus. Overall no significant change. As read by Dr. Zuñiga Patient states he feels better. Denies abdominal discomfort no nausea. Ready to go home with father. Parent was told to watch for changes return emergency room [facility] follow-up with family physician as needed. - Lab Data Result diagrams: 10/25/18 21:07 10/25/18 21:07 Lab Results 10/25/18 10/25/18 10/25/18 Range/Units 21:07 21:07 21:07 WBC 11.3 H (3.8-10.6) k/uL RBC 5.67 (4.30-5.90) m/uL Hgb 17.3 (13.0-17.5) gm/dL Hct 53.1 H (39.0-53.0) % MCV 93.7 (80.0-100.0) fL MCH 30.5 (25.0-35.0) pg MCHC 32.6 (31.0-37.0) g/dL RDW 12.9 (11.5-15.5) % Plt Count 237 (150-450) k/uL Neutrophils % 80 % Lymphocytes % 12 % Monocytes % 5 % Eosinophils % 2 % Basophils % 0 % Neutrophils # 9.1 H (1.3-7.7) k/uL Lymphocytes # 1.4 (1.0-4.8) k/uL Monocytes # 0.5 (0-1.0) k/uL Eosinophils # 0.2 (0-0.7) k/uL Basophils # 0.0 (0-0.2) k/uL Sodium 143 (137-145) mmol/L Potassium 4.3 (3.5-5.1) mmol/L Chloride 105 (98-107) mmol/L Carbon Dioxide 30 (22-30) mmol/L Anion Gap 8 mmol/L BUN 14 (9-20) mg/dL Creatinine 0.99 (0.66-1.25) mg/dL Est GFR (CKD-EPI)AfAm >90 (>60 ml/min/1.73 sqM) Est GFR (CKD-EPI)NonAf >90 (>60 ml/min/1.73 sqM) Glucose 109 H (74-99) mg/dL Calcium 9.7 (8.4-10.2) mg/dL Total Bilirubin 0.8 (0.2-1.3) mg/dL AST 43 (17-59) U/L ALT 74 H (21-72) U/L Alkaline Phosphatase 75 (38-126) U/L Total Protein 8.1 (6.3-8.2) g/dL Albumin 4.7 (3.5-5.0) g/dL Amylase 30 (30-110) U/L Lipase 54 (23-300) U/L Urine Color Yellow Urine Appearance Clear (Clear) Urine pH 6.0 (5.0-8.0) Ur Specific [place] 1.023 (1.001-1.035) Urine Protein 1+ H (Negative) Urine Glucose (UA) Negative (Negative) Urine Ketones 3+ H (Negative) Urine Blood Negative (Negative) Urine Nitrite Negative (Negative) Urine Bilirubin Negative (Negative) Urine Urobilinogen 2.0 (<2.0) mg/dL Ur Leukocyte Esterase Negative (Negative) Urine RBC 3 (0-5) /hpf Urine WBC 1 (0-5) /hpf Urine Mucus Few H (None) /hpf Disposition Clinical Impression: Constipation by delayed colonic transit Disposition: HOME SELF-CARE Condition: Fair Instructions (If sedation given, give patient instructions): Constipation (ED) , High Fiber Diet (ED) Additional Instructions: Increase fluids, use Tylenol for discomfort. Follow-up family physician return emergency room as needed. Is patient prescribed a controlled substance at d/c from ED?: No Referrals: Gracie Zhao MD [Primary Care Provider] - 1-2 days Time of Disposition: 00:17
[2018-10-25 21:28] LABS: ALT 74 U/L (21-72); AST 43 U/L (17-59); Albumin 4.7 g/dL (3.5-5.0); Alkaline Phosphatase 75 U/L (38-126); Amylase 30 U/L (30-110); Anion Gap 8 mmol/L; Blood Urea Nitrogen 14 mg/dL (9-20); Calcium 9.7 mg/dL (8.4-10.2); Carbon Dioxide 30 mmol/L (22-30); Chloride 105 mmol/L (98-107); Glucose 109 mg/dL (74-99); Lipase 54 U/L (23-300); Potassium 4.3 mmol/L (3.5-5.1); Sodium 143 mmol/L (137-145); Total Bilirubin 0.8 mg/dL (0.2-1.3); Total Protein 8.1 g/dL (6.3-8.2)
[2018-10-25 21:30] VITALS: BP 148/95; PULSE 100; RESP 16
[2018-10-25 21:37] LABS: Appearance,Urine Clear (Clear); Bilirubin,Urine Negative (Negative); Blood,Urine Negative (Negative); Color,Urine Yellow; Glucose,Urine (UA) Negative (Negative); Ketones,Urine 3+ (Negative); Leukocyte Esterase,Urine Negative (Negative); Mucus,Urine Few /hpf; Nitrite,Urine Negative (Negative); Protein,Urine 1+ (Negative); RBC,Urine 3 /hpf (0-5); Specific Gravity,Urine 1.023 (1.001-1.035)
[2018-10-25] MEDS ORDERED: SODIUM CHLORIDE 0.9% 1,000 ML IV ONE (22:38)
[2018-10-25] MEDS ORDERED: SODIUM CHLORIDE 0.9% 1,000 ML IV SCH (22:45)
--- NOTE | 2018-10-25 23:05 | XR ---
EXAM: XR Abdomen, 2 Views CLINICAL HISTORY: ITS.REASON XR Reason: Recurrent mid abdominal pain TECHNIQUE: Frontal view of the abdomen/pelvis with upright view of the abdomen. COMPARISON: 10/23/18. FINDINGS: Intraperitoneal space: No gross free air. Gastrointestinal tract: Scattered air-fluid levels are again noted, query enteritis or ileus. No significant small bowel dilatation. Bones/joints: Stable. Soft tissues: Surgical clips in the right upper quadrant. IMPRESSION: Scattered air-fluid levels are again noted, query enteritis or ileus. Overall no significant change.
== END 2018-10-26 00:24 | disposition home or self-care (01) ==
LOC: EC 18:27
DX: K59.01 Slow transit constipation (principal); K21.9 Gastro-esophageal reflux disease without esophagitis; E07.9 Disorder of thyroid, unspecified; Z79.890 Hormone replacement therapy; Z79.899 Other long term (current) drug therapy; Z90.49 Acquired absence of other specified parts of digestive tract; Z85.528 Personal history of other malignant neoplasm of kidney
CPT/HCPCS: 36415; 80053; 82150; 83690; 85025; 81001; 74019; 99284; 96374; J2405

== ENCOUNTER → 2018-12-22 | Outpatient (CLI) | payer MEDICARE, OTHER ==
--- NOTE | 2018-12-22 12:52 | XR ---
EXAMINATION TYPE: XR Hip Bilateral Complete DATE OF EXAM: 12/22/2018 CLINICAL HISTORY: Bilateral hip pain with no known injury TECHNIQUE: AP and frogleg views of both hips were obtained. COMPARISON: None. FINDINGS: There is no acute fracture/dislocation evident in either hip. The joint space in the bila teral hips appear within normal limits. There is a small cam deformity of the distal femoral head nec k junction on the right and left as a small osseous protuberance is seen. The overlying soft tissue appears unremarkable. IMPRESSION: 1. No acute fracture or dislocation in either hip. 2. 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
--- NOTE | 2018-12-22 12:53 | XR ---
EXAMINATION TYPE: XR lumbosacral spine min 4V DATE OF EXAM: 12/22/2018 CLINICAL HISTORY: Back pain with no known injury TECHNIQUE: Frontal, lateral, and oblique images of the lumbar spine are obtained. COMPARISON: None FINDINGS: There are 5 lumbar type vertebral bodies identified. The lumbar spine shows satisfactory alignment without evidence of acute fracture or dislocation. Vertebral body heights and disk space he ights are within normal limits. The oblique images appear within normal limits. Very mild facet art hropathy is seen at L4-L5 and L5-S1. The overlying soft tissue appears unremarkable. IMPRESSION: No acute fracture or malalignment is seen in the lumbar spine.
== END | disposition home or self-care (01) ==
LOC: RADXRMAIN 11:51
PROVIDERS: ATTEND Family Medicine
DX: M25.852 Other specified joint disorders, left hip (principal); M25.851 Other specified joint disorders, right hip; M25.552 Pain in left hip; M25.551 Pain in right hip; M54.5 Low back pain
CPT/HCPCS: 72110; 73521

== ENCOUNTER 2018-12-23 13:22 | Emergency (ER) | payer MEDICARE, OTHER ==
[2018-12-23 13:39] VITALS: BP 152/95; PULSE 78; RESP 20; TEMP 97.4
[2018-12-23] MEDS ORDERED: KETOROLAC 60 MG/2 ML VIAL IM STA (14:31)
--- NOTE | 2018-12-23 15:06 | XR ---
EXAMINATION TYPE: XR Hip Complete RT DATE OF EXAM: 12/23/2018 CLINICAL HISTORY: pain TECHNIQUE: AP and frogleg views of the right hip are obtained. COMPARISON: None. FINDINGS: There is no acute fracture/dislocation evident. The joint space appears within normal li mits. The overlying soft tissue appears unremarkable. IMPRESSION: 1. There is no acute fracture or dislocation. ICD 10 NO FRACTURE, INITIAL EVALUATION
--- NOTE | 2018-12-23 15:29 | ED ---
General Adult HPI - General Chief complaint: Extremity Problem,Nontraumatic Stated complaint: Hip pain Time Seen by Provider: 12/23/18 14:04 Source: patient, family, RN notes reviewed, old records reviewed Mode of arrival: ambulatory Limitations: language barrier - History of Present Illness Initial comments: 38-year-old male patient past medical history of vomiting related presents to ED with right hip pain. Per patient patient does symptoms while walking on a daily basis. Patient states that today he began having pain in his right hip. Patient has a recent falls or trauma. Patient denies any other complaints. Patient denies any fevers chills, nausea vomiting diarrhea, chest pain or shortness of breath. Systemic: Pt denies fatigue, myalgia, fever/chills, rash. Pt denies weakness, night sweats, weight loss. Neuro: Pt denies headache, visual disturbances, syncope or pre-syncope. HEENT: Pt denies ocular discharge or irritation, otalgia, rhinorrhea, pharyngitis or notable lymphadenopathy. Cardiopulmonary: Pt denies chest pain, SOB, heart palpitations, dyspnea on exertion. Abdominal/GI: Pt denies abdominal pain, n/v/d. : Pt denies dysuria, burning w/ urination, frequency/urgency. Denies new onset urinary or bowel incontinence. MSK: Pt denies myalgia, loss of strength or function in extremities. Neuro: Pt denies new onset weakness, paresthesias. - Related Data Home Medications Medication Instructions Recorded Confirmed Levothyroxine Sodium [Synthroid] 50 mcg PO DAILY 09/02/14 10/25/18 Omeprazole [PriLOSEC] 20 mg PO DAILY 02/03/17 10/25/18 Dicyclomine [Bentyl] 10 mg PO TID 10/23/18 10/25/18 Allergies Allergy/AdvReac Type Severity Reaction Status Date / Time No Known Allergies Allergy Verified 12/23/18 13:38 Review of Systems ROS Statement: Those systems with pertinent positive or pertinent negative responses have been documented in the HPI. ROS Other: All systems not noted in ROS Statement are negative. 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 ABDOMINAL PAIN , KIDNEY CANCER History of Any Multi-Drug Resistant Organisms: None Reported Past Surgical History: Cholecystectomy Additional Past Surgical History / Comment(s): KIDNEY SURGERY-MASS REMOVED Past Anesthesia/Blood Transfusion Reactions: Previous Problems w/ Anesthesia Additional Past Anesthesia/Blood Transfusion Reaction / Comment(s): DIFFICULT INTUBATION - WILL BRING LETTER Past Psychological History: No Psychological Hx Reported Smoking Status: Never smoker Past Alcohol Use History: None Reported Past Drug Use History: None Reported - Past Family History Mother History Unknown: Yes Family Medical History: No Reported History Father Family Medical History: Diabetes Mellitus Additional Family Medical History / Comment(s): neuropathy General Exam - General Exam Comments Initial Comments: Constitutional: NAD, AOX3, Pt has pleasant affect. HEENT: NC/AT, trachea midline, neck supple, no lymphadenopathy. Posterior pharynx non erythematous, without exudates. External ears appear normal, without discharge. Mucous membranes moist. Eyes PERRLA, EOM intact. There is no scleral icterus. No pallor noted. Cardiopulmonary: RRR, no murmurs, rubs or gallops, no JVD noted. Lungs CTAB in anterior and posterior [place]. No peripheral edema. Abdominal exam: Abdomen soft and non-distended. Abdomen non-tender to palpation in all 4 quadrants. Bowel sounds active in LLQ. No hepatosplenomegaly. No ecchymosis Neuro: CN II-XII grossly intact. No nuchal rigidity. MSK: Right hip non-erythematous, no ecchymoses. Full active range of motion. Nontender to palpation. Pt is ambulatory. Distal pulses intact and equal. No posterior calf tenderness bilaterally, homans sign negative bilaterally. Posterior tibialis and radial pulse +2 bilaterally. Sensation intact in upper and lower extremities. Full active ROM in upper and lower extremities, 5/5 stregnth. Limitations: language barrier Course Vital Signs 12/23/18 13:36 Temperature 97.4 F L Pulse Rate 78 Respiratory 20 Rate Blood Pressure 152/95 O2 Sat by Pulse 99 Oximetry Medical Decision Making - Medical Decision Making 38-year-old male patient past medical history of vomiting related presents to ED with right hip pain. Per patient patient does symptoms while walking on a daily basis. Patient states that today he began having pain in his right hip. Patient has a recent falls or trauma. Patient denies any other complaints. Patient denies any fevers chills, nausea vomiting diarrhea, chest pain or shortness of breath. Pt VSS, afebrile. Physical exam displayed: Right hip non- erythematous, no ecchymoses. Full active range of motion. Nontender to palpation. Pt is ambulatory. Distal pulses intact and equal. Pt will be discharged with orthopedic follow up. Pt will f/u with PCP in 1-2 days. Pt magdy lreturn to ER if condition worsns in anyway. case discussed with Dr. Merchant. Disposition Clinical Impression: Arthralgia, Hip pain Disposition: HOME SELF-CARE Condition: Stable Instructions (If sedation given, give patient instructions): Hip Pain (ED) Additional Instructions: Patient to adhere to previously discussed treatment plan and will take medication(s) as directed. Patient to follow up with PCP in 1-2 days. Patient to return to ED if symptoms do not improve. Follow-up with primary care provider and orthopedic consult 1-2 days. Return to ER if condition worsens in any way. Is patient prescribed a controlled substance at d/c from ED?: No Referrals: Gracie Zhao MD [Primary Care Provider] - 1-2 days Lucas Najera DO [Doctor of Osteopathic Medicine] - 1-2 days
== END 2018-12-23 15:50 | disposition home or self-care (01) ==
LOC: EC 13:22
DX: M25.551 Pain in right hip (principal); K21.9 Gastro-esophageal reflux disease without esophagitis; E07.9 Disorder of thyroid, unspecified; F88 Other disorders of psychological development; Z79.890 Hormone replacement therapy; Z79.899 Other long term (current) drug therapy; Z85.528 Personal history of other malignant neoplasm of kidney; Z98.890 Other specified postprocedural states; Y93.01 Activity, walking, marching and hiking
CPT/HCPCS: 73502; 99284; 96372; J1885

== ENCOUNTER → 2019-05-09 | Outpatient (CLI) | payer MEDICARE, OTHER ==
[2019-05-09 18:26] LABS: ALT 67 U/L (10-49); AST 41 U/L (14-35); Alkaline Phosphatase 78 U/L (41-126); Bilirubin, Conjugated <0.20 mg/dL (0.20-0.40); Globulin 2.3 g/dL (1.6-3.3); Total Bilirubin 0.4 mg/dL (0.2-1.2); Total Protein 6.9 g/dL (6.2-8.2)
== END | disposition home or self-care (01) ==
LOC: LABWHC1 12:39
PROVIDERS: ATTEND Physician Assistant
DX: R74.8 Abnormal levels of other serum enzymes (principal)
CPT/HCPCS: 36415; 80076

== ENCOUNTER 2019-08-14 11:20 | Emergency (ER) | payer MEDICARE, OTHER ==
[2019-08-14] MEDS ORDERED: ONDANSETRON 4 MG/2 ML VIAL IVP STA (11:32)
[2019-08-14] MEDS ORDERED: SODIUM CHLORIDE 0.9% 500 ML 500 ML IV STA (11:32)
[2019-08-14] MEDS ORDERED: SODIUM CHLORIDE 0.9% 1,000 ML IV STA (11:32)
[2019-08-14] MEDS ORDERED: DICYCLOMINE 20 MG TAB PO STA (11:33)
--- NOTE | 2019-08-14 11:39 | ED ---
Abdominal Pain HPI - General Chief Complaint: Abdominal Pain Stated Complaint: abdominal pain Time Seen by Provider: 08/14/19 11:25 Source: patient, RN notes reviewed Mode of arrival: ambulatory Limitations: no limitations - History of Present Illness Initial Comments: 39-year-old male presents emergency Department chief complaint of abdominal pain, nausea vomiting diarrhea. Patient started late last night. Patient states that he still has very nauseated no localized abdominal pain no chest pain or shortness breath. No dysuria no hematuria. Patient states that he has had no sick contacts with ssimilar symptoms. Patient denies any melena or hem atochezia. Patient denies any fever, chills, headache or dizziness - Related Data Home Medications Medication Instructions Recorded Confirmed Levothyroxine Sodium [Synthroid] 50 mcg PO DAILY 09/02/14 10/25/18 Omeprazole [PriLOSEC] 20 mg PO DAILY 02/03/17 10/25/18 Dicyclomine [Bentyl] 10 mg PO TID 10/23/18 10/25/18 Previous Rx's Medication Instructions Recorded Ondansetron Odt [Zofran Odt] 4 mg PO Q8HR PRN #10 tab 08/14/19 Allergies Allergy/AdvReac Type Severity Reaction Status Date / Time No Known Allergies Allergy Verified 08/14/19 11:22 Review of Systems ROS Statement: Those systems with pertinent positive or pertinent negative responses have been documented in the HPI. ROS Other: All systems not noted in ROS Statement are negative. 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 ABDOMINAL PAIN , KIDNEY CANCER History of Any Multi-Drug Resistant Organisms: None Reported Past Surgical History: Cholecystectomy Additional Past Surgical History / Comment(s): KIDNEY SURGERY-MASS REMOVED Past Anesthesia/Blood Transfusion Reactions: Previous Problems w/ Anesthesia Additional Past Anesthesia/Blood Transfusion Reaction / Comment(s): DIFFICULT INTUBATION - WILL BRING LETTER Past Psychological History: No Psychological Hx Reported Smoking Status: Never smoker Past Alcohol Use History: None Reported Past Drug Use History: None Reported - Past Family History Mother History Unknown: Yes Family Medical History: No Reported History Father Family Medical History: Diabetes Mellitus Additional Family Medical History / Comment(s): neuropathy General Exam Limitations: no limitations General appearance: alert, in no apparent distress Head exam: Present: atraumatic, normocephalic, normal inspection Eye exam: Present: normal appearance, PERRL, EOMI. Absent: scleral icterus, conjunctival injection, periorbital swelling ENT exam: Present: normal exam, normal oropharynx, mucous membranes moist Neck exam: Present: normal inspection, full ROM. Absent: tenderness, menin gismus, lymphadenopathy Respiratory exam: Present: normal lung sounds bilaterally. Absent: respiratory distress, wheezes, rales, rhonchi, stridor Cardiovascular Exam: Present: normal rhythm, tachycardia, normal heart sounds. Absent: systolic murmur, diastolic murmur, rubs, gallop, clicks GI/Abdominal exam: Present: soft, tenderness (mild diffuse), normal bowel sounds. Absent: distended, guarding, rebound, rigid Back exam: Absent: CVA tenderness (R), CVA tenderness (L) Neurological exam: Present: alert, oriented X3 Skin exam: Present: warm, dry, intact, normal color. Absent: rash Course Vital Signs 08/14/19 11:22 Temperature 97.8 F Pulse Rate 116 H Respiratory 18 Rate Blood Pressure 148/103 O2 Sat by Pulse 97 Oximetry Medical Decision Making - Medical Decision Making patient was well hydrated in emergency department, patient feels improved. Patient noted to have 3+ ketones and 2+ glucose though this is most likely from dehydration. advised follow-up with his PCP for possible A1c, repeat monitoring of blood glucose. Patient will be discharged with Zofran return parameters discussed. - Lab Data Result diagrams: 08/14/19 11:50 08/14/19 11:50 Lab Results 08/14/19 08/14/19 08/14/19 Range/Units 11:49 11:50 11:50 WBC 7.7 (3.8-10.6) k/uL RBC 5.94 H (4.30-5.90) m/uL Hgb 18.5 H (13.0-17.5) gm/dL Hct 54.1 H (39.0-53.0) % MCV 91.1 (80.0-100.0) fL MCH 31.2 (25.0-35.0) pg MCHC 34.2 (31.0-37.0) g/dL RDW 12.8 (11.5-15.5) % Plt Count 229 (150-450) k/uL Neutrophils % 88 % Lymphocytes % 7 % Monocytes % 4 % Eosinophils % 1 % Basophils % 1 % Neutrophils # 6.8 (1.3-7.7) k/uL Lymphocytes # 0.5 L (1.0-4.8) k/uL Monocytes # 0.3 (0-1.0) k/uL Eosinophils # 0.1 (0-0.7) k/uL Basophils # 0.1 (0-0.2) k/uL Sodium 141 (137-145) mmol/L Potassium 4.3 (3.5-5.1) mmol/L Chloride 102 (98-107) mmol/L Carbon Dioxide 28 (22-30) mmol/L Anion Gap 11 mmol/L BUN 13 (9-20) mg/dL Creatinine 0.90 (0.66-1.25) mg/dL Est GFR (CKD-EPI)AfAm >90 (>60 ml/min/1.73 sqM) Est GFR (CKD-EPI)NonAf >90 (>60 ml/min/1.73 sqM) Glucose 186 H (74-99) mg/dL Calcium 9.6 (8.4-10.2) mg/dL Total Bilirubin 1.0 (0.2-1.3) mg/dL AST 39 (17-59) U/L ALT 55 H (4-49) U/L Alkaline Phosphatase 86 (38-126) U/L Total Protein 8.7 H (6.3-8.2) g/dL Albumin 4.9 (3.5-5.0) g/dL Amylase 33 (30-110) U/L Lipase 22 L (23-300) U/L Urine Color Yellow Urine Appearance Cloudy (Clear) Urine pH 6.0 (5.0-8.0) Ur Specific [place] 1.031 (1.001-1.035) Urine Protein 1+ H (Negative) Urine Glucose (UA) 3+ H (Negative) Urine Ketones 2+ H (Negative) Urine Blood Negative (Negative) Urine Nitrite Negative (Negative) Urine Bilirubin Negative (Negative) Urine Urobilinogen <2.0 (<2.0) mg/dL Ur Leukocyte Esterase Negative (Negative) Urine WBC 3 (0-5) /hpf Ur Squamous Epith Cells <1 (0-4) /hpf Urine Mucus Many H (None) /hpf Disposition Clinical Impression: Gastroenteritis Disposition: HOME SELF-CARE Condition: Stable Instructions (If sedation given, give patient instructions): Gastroenteritis (ED) Additional Instructions: Please return to the Emergency Department if symptoms worsen or any other concerns. Prescriptions: Ondansetron Odt [Zofran Odt] 4 mg PO Q8HR PRN #10 tab PRN Reason: Nausea Is patient prescribed a controlled substance at d/c from ED?: No Referrals: Gracie Zhao MD [Primary Care Provider] - 1-2 days Time of Disposition: 12:47
[2019-08-14 11:57] LABS: Appearance,Urine Cloudy (Clear); Bilirubin,Urine Negative (Negative); Blood,Urine Negative (Negative); Color,Urine Yellow; Glucose,Urine (UA) 3+ (Negative); Leukocyte Esterase,Urine Negative (Negative); Mucus,Urine Many /hpf; Nitrite,Urine Negative (Negative); Protein,Urine 1+ (Negative); Specific Gravity,Urine 1.031 (1.001-1.035); Squamous Epithelial Cell,Urine <1 /hpf (0-4); Urobilinogen,Urine <2.0 mg/dL (<2.0); WBC,Urine 3 /hpf (0-5)
[2019-08-14 11:59] LABS: Ketones,Urine 2+ (Negative)
[2019-08-14 12:21] LABS: Basophils # (A) 0.1 k/uL (0-0.2); Basophils % (A) 1 %; Eosinophils # (A) 0.1 k/uL (0-0.7); Eosinophils % (A) 1 %; HCT 54.1 % (39.0-53.0); HGB 18.5 gm/dL (13.0-17.5); Lymphocytes # (A) 0.5 k/uL (1.0-4.8); Lymphocytes % (A) 7 %; MCH 31.2 pg (25.0-35.0); MCHC 34.2 g/dL (31.0-37.0); MCV 91.1 fL (80.0-100.0); Mean Platelet Volume 7.4; Monocytes # (A) 0.3 k/uL (0-1.0); Monocytes % (A) 4 %; Neutrophils # (A) 6.8 k/uL (1.3-7.7); Neutrophils % (A) 88 %; Platelet Count 229 k/uL (150-450); RBC 5.94 m/uL (4.30-5.90); RDW 12.8 % (11.5-15.5); WBC 7.7 k/uL (3.8-10.6)
[2019-08-14 12:24] LABS: ALT 55 U/L (4-49); AST 39 U/L (17-59); African American GFR (CKD) >90 (>60 ml/min/1.73 sqM); Albumin 4.9 g/dL (3.5-5.0); Alkaline Phosphatase 86 U/L (38-126); Amylase 33 U/L (30-110); Anion Gap 11 mmol/L; Blood Urea Nitrogen 13 mg/dL (9-20); Calcium 9.6 mg/dL (8.4-10.2); Carbon Dioxide 28 mmol/L (22-30); Chloride 102 mmol/L (98-107); Glucose 186 mg/dL (74-99); Non-African American GFR(CKD) >90 (>60 ml/min/1.73 sqM); Potassium 4.3 mmol/L (3.5-5.1); Sodium 141 mmol/L (137-145); Total Protein 8.7 g/dL (6.3-8.2)
[2019-08-14] MEDS ORDERED: KETOROLAC 30 MG/ML 1 ML VIAL IVP STA (13:14)
[2019-08-14 13:26] VITALS: BP 129/79; PULSE 79; RESP 20; TEMP 97.9
== END 2019-08-14 13:26 | disposition home or self-care (01) ==
LOC: EC 11:20
DX: K52.9 Noninfective gastroenteritis and colitis, unspecified (principal); K21.9 Gastro-esophageal reflux disease without esophagitis; E07.9 Disorder of thyroid, unspecified; Z90.49 Acquired absence of other specified parts of digestive tract; Z85.528 Personal history of other malignant neoplasm of kidney; Z98.890 Other specified postprocedural states; Z79.890 Hormone replacement therapy; Z79.899 Other long term (current) drug therapy
CPT/HCPCS: 36415; 80053; 82150; 83690; 85025; 81001; 99284; 96374; 96375; 96361; J2405; J1885

== ENCOUNTER → 2020-07-09 | Outpatient (CLI) | payer MEDICARE, OTHER ==
[2020-07-09 11:58] LABS: African American GFR (CKD) >90 (>60 ml/min/1.73 sqM); Blood Urea Nitrogen 14 mg/dL (9-20); Non-African American GFR(CKD) 86 (>60 ml/min/1.73 sqM)
--- NOTE | 2020-07-09 14:13 | CT ---
EXAMINATION TYPE: CT abdomen pelvis w con DATE OF EXAM: 07/09/2020 COMPARISON: 10/23/2018 HISTORY: 40-year-old male C64.1, Kidney CA TECHNIQUE: Contiguous axial scanning of the abdomen and pelvis following administration of 100 ml Iso bro 300 IV contrast. Delayed images through the kidneys and coronal/sagittal reconstructions perform ed. CT DLP: 1521.3 mGycm Automated exposure control for dose reduction was used. FINDINGS: Heart normal size. There is some motion along the right side inferior wall. No sizable pericardial ef fusion. Chronic appearing interstitial prominence at the lung bases. No pleural effusion. Low attenuation of the hepatic parenchyma may reflect underlying hepatic steatosis. Portal venous sys tem is patent. No biliary ductal dilatation. Liver borderline in size at 17.5 cm. Cholecystectomy clips. Adrenal glands, kidneys with bilateral extrarenal pelves, spleen with a superior medial splenule, and pancreas appear within normal limits. Small cortical defect along the lateral lower pole of the right kidney could represent the site of pr ior intervention. No dilated small bowel, free fluid, or free air. No mesenteric or retroperitoneal lymphadenopathy. Oral contrast progressed to the distal third transverse colon. No significant stool burden. Mildly re dundant sigmoid colon. Stool distending the rectum up to 6.4 cm wide. Prominent distention of the urinary bladder. Left-sided pelvic phleboliths. Prostate gland measures 5 .3 cm wide. No abnormal fluid collection in the pelvis or pelvic lymphadenopathy. Bones: Mild degenerative change of the hips. Mild degenerative disc disease L5-S1 and L4-L5. IMPRESSION: 1. NO EVIDENCE FOR RENAL CELL CARCINOMA OR METASTATIC DISEASE IN THE ABDOMEN OR PELVIS. POSTTREATMENT CORTICAL DEFECT AT THE LOWER POLE OF THE RIGHT KIDNEY. 2. PROSTATOMEGALY AT 5.2 CM WIDE. PROMINENT DISTENTION OF THE URINARY BLADDER. 3. THERE MAY BE UNDERLYING MILD FATTY INFILTRATION OF THE LIVER.
== END | disposition home or self-care (01) ==
LOC: RADCTMAIN 11:09
PROVIDERS: ATTEND Urology
DX: N40.0 Benign prostatic hyperplasia without lower urinary tract symptoms (principal); N32.89 Other specified disorders of bladder; C64.1 Malignant neoplasm of right kidney, except renal pelvis; Z98.890 Other specified postprocedural states
CPT/HCPCS: 82565; 84520; 74177; 36415; Q9967

== ENCOUNTER 2021-05-06 20:20 | Emergency (ER) | payer MEDICARE, OTHER ==
[2021-05-06] MEDS ORDERED: SODIUM CHLORIDE 0.9% 1,000 ML IV STA (22:38)
[2021-05-06 22:53] VITALS: RESP 18
[2021-05-06 23:01] LABS: Basophils # (A) 0.1 k/uL (0-0.2); Basophils % (A) 1 %; Eosinophils # (A) 0.1 k/uL (0-0.7); Eosinophils % (A) 1 %; HCT 52.4 % (39.0-53.0); HGB 18.5 gm/dL (13.0-17.5); Lymphocytes # (A) 1.6 k/uL (1.0-4.8); Lymphocytes % (A) 18 %; MCHC 35.4 g/dL (31.0-37.0); MCV 93.2 fL (80.0-100.0); Monocytes # (A) 0.4 k/uL (0-1.0); Monocytes % (A) 4 %; Neutrophils # (A) 6.6 k/uL (1.3-7.7); Neutrophils % (A) 75 %; Platelet Count 272 k/uL (150-450); RBC 5.62 m/uL (4.30-5.90); RDW 13.3 % (11.5-15.5); WBC 8.8 k/uL (3.8-10.6)
[2021-05-06 23:09] LABS: Appearance,Urine Clear (Clear); Bilirubin,Urine Negative (Negative); Blood,Urine Negative (Negative); Color,Urine Yellow; Glucose,Urine (UA) Trace (Negative); Hyaline Casts,Urine 1 /lpf (0-2); Ketones,Urine Negative (Negative); Leukocyte Esterase,Urine Negative (Negative); Mucus,Urine Few /hpf; Nitrite,Urine Negative (Negative); PH, Urine 6.5 (5.0-8.0); Protein,Urine 1+ (Negative); RBC,Urine 2 /hpf (0-5); Urobilinogen,Urine <2.0 mg/dL (<2.0); WBC,Urine 1 /hpf (0-5)
[2021-05-06 23:31] LABS: ALT 40 U/L (4-49); AST 41 U/L (17-59); African American GFR (CKD) >90 (>60 ml/min/1.73 sqM); Albumin 4.7 g/dL (3.5-5.0); Alkaline Phosphatase 66 U/L (38-126); Anion Gap 8 mmol/L; Blood Urea Nitrogen 11 mg/dL (9-20); Calcium 9.7 mg/dL (8.4-10.2); Carbon Dioxide 31 mmol/L (22-30); Chloride 100 mmol/L (98-107); Glucose 118 mg/dL (74-99); Lipase 60 U/L (23-300); Non-African American GFR(CKD) >90 (>60 ml/min/1.73 sqM); Potassium 4.2 mmol/L (3.5-5.1); Sodium 139 mmol/L (137-145); Total Bilirubin 0.5 mg/dL (0.2-1.3)
--- NOTE | 2021-05-06 23:51 | ED ---
Abdominal Pain HPI - General Chief Complaint: Abdominal Pain Stated Complaint: Abd Pain Time Seen by Provider: 05/06/21 22:32 Source: patient, family, RN notes reviewed Mode of arrival: ambulatory Limitations: no limitations - History of Present Illness Initial Comments: 41-year-old male presented to the emergency department with chief complaint of abdominal pain. Patient states the pain started 3 days ago is worse with eating. Patient's had prior cholecystectomy and renal biopsy for breast cancer. Patient has slight nausea and no significant vomiting no dysuria no hematuria no other complaints. - Related Data Home Medications Medication Instructions Recorded Confirmed Levothyroxine Sodium [Synthroid] 50 mcg PO DAILY 09/02/14 10/25/18 Omeprazole [PriLOSEC] 20 mg PO DAILY 02/03/17 10/25/18 Dicyclomine [Bentyl] 10 mg PO TID 10/23/18 10/25/18 Previous Rx's Medication Instructions Recorded Ondansetron Odt [Zofran Odt] 4 mg PO Q8HR PRN #10 tab 08/14/19 Dicyclomine [Bentyl] 20 mg PO TID #15 tablet 05/07/21 Allergies Allergy/AdvReac Type Severity Reaction Status Date / Time No Known Allergies Allergy Verified 05/06/21 20:29 Review of Systems ROS Statement: Those systems with pertinent positive or pertinent negative responses have been documented in the HPI. ROS Other: All systems not noted in ROS Statement are negative. 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 ABDOMINAL PAIN , KIDNEY CANCER History of Any Multi-Drug Resistant Organisms: None Reported Past Surgical History: Cholecystectomy Additional Past Surgical History / Comment(s): KIDNEY SURGERY-MASS REMOVED Past Anesthesia/Blood Transfusion Reactions: Previous Problems w/ Anesthesia Additional Past Anesthesia/Blood Transfusion Reaction / Comment(s): DIFFICULT INTUBATION - WILL BRING LETTER Past Psychological History: No Psychological Hx Reported Past Alcohol Use History: None Reported Past Drug Use History: None Reported - Past Family History Mother History Unknown: Yes Family Medical History: No Reported History Father Family Medical History: Diabetes Mellitus Additional Family Medical History / Comment(s): neuropathy General Exam Limitations: no limitations General appearance: alert, in no apparent distress Head exam: Present: atraumatic, normocephalic, normal inspection Eye exam: Present: normal appearance, PERRL, EOMI. Absent: scleral icterus, conjunctival injection, periorbital swelling Neck exam: Present: normal inspection. Absent: tenderness, meningismus, lymphadenopathy Respiratory exam: Present: normal lung sounds bilaterally. Absent: respiratory distress, wheezes, rales, rhonchi, stridor Cardiovascular Exam: Present: regular rate, normal rhythm, normal heart sounds. Absent: systolic murmur, diastolic murmur, rubs, gallop, clicks GI/Abdominal exam: Present: soft, tenderness, normal bowel sounds. Absent: distended, guarding, rebound, rigid Back exam: Absent: CVA tenderness (R), CVA tenderness (L) Course Vital Signs 05/06/21 05/06/21 20:23 22:52 Temperature 97.6 F Pulse Rate 108 H 87 Respiratory 20 18 Rate Blood Pressure 154/103 142/102 O2 Sat by Pulse 98 96 Oximetry Medical Decision Making - Medical Decision Making CT is unremarkable. Patient labs do not reveal any acute abnormality. Patient will be discharged in stable condition return parameters were discussed. - Lab Data Result diagrams: 05/06/21 22:47 05/06/21 22:47 Lab Results 05/06/21 05/06/21 05/06/21 Range/Units 22:47 22:47 22:47 WBC 8.8 (3.8-10.6) k/uL RBC 5.62 (4.30-5.90) m/uL Hgb 18.5 H (13.0-17.5) gm/dL Hct 52.4 (39.0-53.0) % MCV 93.2 (80.0-100.0) fL MCH 33.0 (25.0-35.0) pg MCHC 35.4 (31.0-37.0) g/dL RDW 13.3 (11.5-15.5) % Plt Count 272 (150-450) k/uL MPV 7.0 Neutrophils % 75 % Lymphocytes % 18 % Monocytes % 4 % Eosinophils % 1 % Basophils % 1 % Neutrophils # 6.6 (1.3-7.7) k/uL Lymphocytes # 1.6 (1.0-4.8) k/uL Monocytes # 0.4 (0-1.0) k/uL Eosinophils # 0.1 (0-0.7) k/uL Basophils # 0.1 (0-0.2) k/uL Sodium 139 (137-145) mmol/L Potassium 4.2 (3.5-5.1) mmol/L Chloride 100 (98-107) mmol/L Carbon Dioxide 31 H (22-30) mmol/L Anion Gap 8 mmol/L BUN 11 (9-20) mg/dL Creatinine 0.99 (0.66-1.25) mg/dL Est GFR (CKD-EPI)AfAm >90 (>60 ml/min/1.73 sqM) Est GFR (CKD-EPI)NonAf >90 (>60 ml/min/1.73 sqM) Glucose 118 H (74-99) mg/dL Plasma Lactic Acid Ezequiel (0.7-2.0) mmol/L Calcium 9.7 (8.4-10.2) mg/dL Total Bilirubin 0.5 (0.2-1.3) mg/dL AST 41 (17-59) U/L ALT 40 (4-49) U/L Alkaline Phosphatase 66 (38-126) U/L Total Protein 8.0 (6.3-8.2) g/dL Albumin 4.7 (3.5-5.0) g/dL Lipase 60 (23-300) U/L Urine Color Yellow Urine Appearance Clear (Clear) Urine pH 6.5 (5.0-8.0) Ur Specific [place] 1.030 (1.001-1.035) Urine Protein 1+ H (Negative) Urine Glucose (UA) Trace H (Negative) Urine Ketones Negative (Negative) Urine Blood Negative (Negative) Urine Nitrite Negative (Negative) Urine Bilirubin Negative (Negative) Urine Urobilinogen <2.0 (<2.0) mg/dL Ur Leukocyte Esterase Negative (Negative) Urine RBC 2 (0-5) /hpf Urine WBC 1 (0-5) /hpf Hyaline Casts 1 (0-2) /lpf Urine Mucus Few H (None) /hpf 05/06/21 Range/Units 22:47 WBC (3.8-10.6) k/uL RBC (4.30-5.90) m/uL Hgb (13.0-17.5) gm/dL Hct (39.0-53.0) % MCV (80.0-100.0) fL MCH (25.0-35.0) pg MCHC (31.0-37.0) g/dL RDW (11.5-15.5) % Plt Count (150-450) k/uL MPV Neutrophils % % Lymphocytes % % Monocytes % % Eosinophils % % Basophils % % Neutrophils # (1.3-7.7) k/uL Lymphocytes # (1.0-4.8) k/uL Monocytes # (0-1.0) k/uL Eosinophils # (0-0.7) k/uL Basophils # (0-0.2) k/uL Sodium (137-145) mmol/L Potassium (3.5-5.1) mmol/L Chloride (98-107) mmol/L Carbon Dioxide (22-30) mmol/L Anion Gap mmol/L BUN (9-20) mg/dL Creatinine (0.66-1.25) mg/dL Est GFR (CKD-EPI)AfAm (>60 ml/min/1.73 sqM) Est GFR (CKD-EPI)NonAf (>60 ml/min/1.73 sqM) Glucose (74-99) mg/dL Plasma Lactic Acid Ezequiel 1.4 (0.7-2.0) mmol/L Calcium (8.4-10.2) mg/dL Total Bilirubin (0.2-1.3) mg/dL AST (17-59) U/L ALT (4-49) U/L Alkaline Phosphatase (38-126) U/L Total Protein (6.3-8.2) g/dL Albumin (3.5-5.0) g/dL Lipase (23-300) U/L Urine Color Urine Appearance (Clear) Urine pH (5.0-8.0) Ur Specific [place] (1.001-1.035) Urine Protein (Negative) Urine Glucose (UA) (Negative) Urine Ketones (Negative) Urine Blood (Negative) Urine Nitrite (Negative) Urine Bilirubin (Negative) Urine Urobilinogen (<2.0) mg/dL Ur Leukocyte Esterase (Negative) Urine RBC (0-5) /hpf Urine WBC (0-5) /hpf Hyaline Casts (0-2) /lpf Urine Mucus (None) /hpf Disposition Clinical Impression: Abdominal pain Disposition: HOME SELF-CARE Condition: Stable Instructions (If sedation given, give patient instructions): Abdominal Pain (ED) Additional Instructions: Please return to the Emergency Department if symptoms worsen or any other concerns. Prescriptions: Dicyclomine [Bentyl] 20 mg PO TID #15 tablet Is patient prescribed a controlled substance at d/c from ED?: No Referrals: Gracie Zhao MD [Primary Care Provider] - 1-2 days Time of Disposition: 00:48
--- NOTE | 2021-05-07 00:45 | CT ---
EXAMINATION TYPE: CT abdomen pelvis w con DATE OF EXAM: 05/07/2021 COMPARISON: 07/09/2020 HISTORY: LUQ pain x3 days CT DLP: 1396.4 mGycm Automated exposure control for dose reduction was used. CONTRAST: Performed with IV Contrast, patient injected with 100 mL of Isovue 300. Lung bases are clear. There is no pleural effusion. Heart size is normal. There is no pericardial eff usion. There are clips from cholecystectomy. Liver spleen stomach pancreas appear intact. Bile ducts are not dilated. There is no adrenal mass. Kidneys show satisfactory contrast opacification. There is no hydronephrosi s. Ureters are not dilated. There is no retroperitoneal adenopathy. Appendix is small. There is no si gn of appendicitis. Bladder distends smoothly. There is no inguinal hernia. There is no free fluid in the pelvis. There is no mesenteric edema. There is no ascites or free air. There is no bowel obstruction. The lumbar vertebra have normal spacing and alignment. Posterior elements are intact. There is no com pression fracture. Bony pelvis is intact. The hip joints are intact. Delayed images show normal renal excretion. IMPRESSION: Negative CT scan abdomen and pelvis. I do not see a cause for abdominal pain. No adverse change emigdio red to old exam.
[2021-05-07 01:00] VITALS: BP 140/94; PULSE 75; TEMP 98.6
== END 2021-05-07 00:58 | disposition home or self-care (01) ==
LOC: EC 20:20
DX: R10.9 Unspecified abdominal pain (principal); K21.9 Gastro-esophageal reflux disease without esophagitis; Z79.890 Hormone replacement therapy; Z79.899 Other long term (current) drug therapy
CPT/HCPCS: 36415; 80053; 83605; 83690; 85025; 81001; 74177; 99284; Q9967

== ENCOUNTER → 2021-06-11 | Outpatient (CLI) | payer MEDICARE, OTHER ==
--- NOTE | 2021-06-11 16:10 | XR ---
EXAMINATION TYPE: XR abdomen acute w cxr DATE OF EXAM: 06/11/2021 COMPARISON: Abdomen with x-ray 08/01/2017, CT 05/06/2021 HISTORY: R 10.33, R 19.7 TECHNIQUE: Supine, upright, and frontal chest views of the chest and abdomen are obtained on 4 image s FINDINGS: Chest x-ray stable, no acute abnormality. Surgical clips are present right upper quadrant. There is no evidence for pneumoperitoneum. The bowel gas pattern is unremarkable as there is air throughout nondilated small and large bowel. Air-fluid levels are present without bowel distention. No mass effects are seen. No unusual calcifications, probable phleboliths in the pelvis.. IMPRESSION: Correlate for possible enteritis or ileus
== END | disposition home or self-care (01) ==
LOC: RADXRMAIN 15:11
PROVIDERS: ATTEND Family Medicine
DX: R10.33 Periumbilical pain (principal); R19.7 Diarrhea, unspecified
CPT/HCPCS: 74022

== ENCOUNTER 2021-06-27 13:45 | Inpatient (IN) | payer MEDICARE, OTHER ==
[2021-06-27] MEDS ORDERED: SODIUM CHLORIDE 0.9% 500 ML 500 ML IV STA (15:31)
[2021-06-27] MEDS ORDERED: MAG HYDROX/AL HYDROX/SIMETH 30 ML, HYOSCYAMINE ELIXIR 10 ML, LIDOCAINE VISCOUS 2% 10 ML PO STA ×3 (16:16)
--- NOTE | 2021-06-27 16:19 | ED ---
Abdominal Pain HPI - General Chief Complaint: Abdominal Pain Stated Complaint: Abd Pain Time Seen by Provider: 06/27/21 15:03 Source: patient Mode of arrival: ambulatory Limitations: no limitations - History of Present Illness Initial Comments: Flako is a pleasant 41-year-old gentleman with history of cognitive delay who presents to the emergency department today for evaluation of persistent abdominal pain. Patient has been dealing with episodic abdominal pain for approximately 7 years now. He does have a history of a partial nephrectomy and cholecystectomy in the past. He had a EGD and colonoscopy by Dr. Paul 2 years ago. He is on PPI medications. Mother reports the patient was pretty asymptomatic for about one year murmur the past couple of weeks has been complaining of daily persistent abdominal pain. He doesn't appear to have any nausea or vomiting. He still eating and drinking well. Normal bowel movements. Father states the patient has a very limited diet and is very strict in what he chooses to eat therefore there is no concern for exposure new allergens. Patient did see Dr. Paul last week she did change one of his PPI medications and he had 1-2 days of relief but again was complaining of abdominal pain today so the dad brought him to the ER for evaluation. - Related Data Home Medications Medication Instructions Recorded Confirmed RX: Levothyroxine Sodium 50 mcg PO DAILY 09/02/14 06/27/21 [Synthroid] Dicyclomine [Bentyl] 20 mg PO BID 10/23/18 06/27/21 Ergocalciferol (Vitamin D2) 1,250 mcg PO Q7D 06/27/21 06/27/21 [Drisdol (50,000 Iu)] Famotidine [Pepcid] 20 mg PO HS PRN 06/27/21 06/27/21 Pantoprazole [Protonix] 40 mg PO DAILY 06/27/21 06/27/21 Allergies Allergy/AdvReac Type Severity Reaction Status Date / Time No Known Allergies Allergy Verified 06/27/21 16:27 Review of Systems ROS Statement: Those systems with pertinent positive or pertinent negative responses have been documented in the HPI. ROS Other: All systems not noted in ROS Statement are negative. 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 ABDOMINAL PAIN , KIDNEY CANCER History of Any Multi-Drug Resistant Organisms: None Reported Past Surgical History: Cholecystectomy Additional Past Surgical History / Comment(s): KIDNEY SURGERY-MASS REMOVED Past Anesthesia/Blood Transfusion Reactions: Previous Problems w/ Anesthesia Additional Past Anesthesia/Blood Transfusion Reaction / Comment(s): DIFFICULT INTUBATION - WILL BRING LETTER Past Psychological History: No Psychological Hx Reported Smoking Status: Never smoker Past Alcohol Use History: None Reported Past Drug Use History: None Reported - Past Family History Mother History Unknown: Yes Family Medical History: No Reported History Father Family Medical History: Diabetes Mellitus Additional Family Medical History / Comment(s): neuropathy General Exam - General Exam Comments Initial Comments: Physical Exam GENERAL: Patient is well-developed and well-nourished. Patient is nontoxic and well-hydrated and is in no distress. HENT: Normocephalic, Atraumatic. EYES: PERRL, EOMI PULMONARY: Unlabored respirations. CARDIOVASCULAR: RRR Warm and well perfused extremities ABDOMEN: Soft, Non-distended No apparent pain to palpation SKIN: No rashes or bruising : Deferred NEUROLOGIC: Alert and oriented Normal speech Normal gait MUSCULOSKELETAL: Moving all extremities with no apparent injury PSYCHIATRIC: No SI/HI Limitations: no limitations Course Vital Signs 06/27/21 06/27/21 14:42 20:02 Temperature 97.8 F Pulse Rate 98 72 Respiratory 20 18 Rate Blood Pressure 150/105 106/78 O2 Sat by Pulse 95 94 L Oximetry Medical Decision Making - Medical Decision Making The patient was seen and evaluated, history is obtained from patient and father who is caregiver. Patient has had intermittent abdominal pain for a number of y ears he is followed with GI. Presents to ER today for worsening abdominal pain, labs are unremarkable however x-ray is suggestive of an ileus. Given the patient's delay in concerned that he will have his pain adequately managed outpatient we will plan to place patient in observation for pain management. - Lab Data Result diagrams: 06/27/21 16:25 06/27/21 16:25 Lab Results 06/27/21 06/27/21 06/27/21 Range/Units 16:25 16:25 16:25 WBC 8.4 (3.8-10.6) k/uL RBC 5.46 (4.30-5.90) m/uL Hgb 17.3 (13.0-17.5) gm/dL Hct 50.8 (39.0-53.0) % MCV 93.1 (80.0-100.0) fL MCH 31.6 (25.0-35.0) pg MCHC 34.0 (31.0-37.0) g/dL RDW 12.1 (11.5-15.5) % Plt Count 224 (150-450) k/uL MPV 7.4 Neutrophils % 81 % Lymphocytes % 13 % Monocytes % 4 % Eosinophils % 1 % Basophils % 1 % Neutrophils # 6.8 (1.3-7.7) k/uL Lymphocytes # 1.1 (1.0-4.8) k/uL Monocytes # 0.3 (0-1.0) k/uL Eosinophils # 0.1 (0-0.7) k/uL Basophils # 0.1 (0-0.2) k/uL Sodium 139 (137-145) mmol/L Potassium 3.9 (3.5-5.1) mmol/L Chloride 101 (98-107) mmol/L Carbon Dioxide 29 (22-30) mmol/L Anion Gap 9 mmol/L BUN 16 (9-20) mg/dL Creatinine 1.04 (0.66-1.25) mg/dL Est GFR (CKD-EPI)AfAm >90 (>60 ml/min/1.73 sqM) Est GFR (CKD-EPI)NonAf 90 (>60 ml/min/1.73 sqM) Glucose 120 H (74-99) mg/dL Plasma Lactic Acid Ezequiel (0.7-2.0) mmol/L Calcium 9.9 (8.4-10.2) mg/dL Total Bilirubin 0.5 (0.2-1.3) mg/dL AST 30 (17-59) U/L ALT 30 (4-49) U/L Alkaline Phosphatase 66 (38-126) U/L Total Protein 7.8 (6.3-8.2) g/dL Albumin 4.6 (3.5-5.0) g/dL Lipase 53 (23-300) U/L Urine Color Yellow Urine Appearance Turbid (Clear) Urine pH 7.5 (5.0-8.0) Ur Specific [place] 1.025 (1.001-1.035) Urine Protein Trace H (Negative) Urine Glucose (UA) Negative (Negative) Urine Ketones Negative (Negative) Urine Blood Negative (Negative) Urine Nitrite Negative (Negative) Urine Bilirubin Negative (Negative) Urine Urobilinogen <2.0 (<2.0) mg/dL Ur Leukocyte Esterase Negative (Negative) Amorphous Sediment Moderate H (None) /hpf 06/27/21 Range/Units 16:25 WBC (3.8-10.6) k/uL RBC (4.30-5.90) m/uL Hgb (13.0-17.5) gm/dL Hct (39.0-53.0) % MCV (80.0-100.0) fL MCH (25.0-35.0) pg MCHC (31.0-37.0) g/dL RDW (11.5-15.5) % Plt Count (150-450) k/uL MPV Neutrophils % % Lymphocytes % % Monocytes % % Eosinophils % % Basophils % % Neutrophils # (1.3-7.7) k/uL Lymphocytes # (1.0-4.8) k/uL Monocytes # (0-1.0) k/uL Eosinophils # (0-0.7) k/uL Basophils # (0-0.2) k/uL Sodium (137-145) mmol/L Potassium (3.5-5.1) mmol/L Chloride (98-107) mmol/L Carbon Dioxide (22-30) mmol/L Anion Gap mmol/L BUN (9-20) mg/dL Creatinine (0.66-1.25) mg/dL Est GFR (CKD-EPI)AfAm (>60 ml/min/1.73 sqM) Est GFR (CKD-EPI)NonAf (>60 ml/min/1.73 sqM) Glucose (74-99) mg/dL Plasma Lactic Acid Ezequiel 1.2 (0.7-2.0) mmol/L Calcium (8.4-10.2) mg/dL Total Bilirubin (0.2-1.3) mg/dL AST (17-59) U/L ALT (4-49) U/L Alkaline Phosphatase (38-126) U/L Total Protein (6.3-8.2) g/dL Albumin (3.5-5.0) g/dL Lipase (23-300) U/L Urine Color Urine Appearance (Clear) Urine pH (5.0-8.0) Ur Specific [place] (1.001-1.035) Urine Protein (Negative) Urine Glucose (UA) (Negative) Urine Ketones (Negative) Urine Blood (Negative) Urine Nitrite (Negative) Urine Bilirubin (Negative) Urine Urobilinogen (<2.0) mg/dL Ur Leukocyte Esterase (Negative) Amorphous Sediment (None) /hpf Disposition Clinical Impression: Ileus Disposition[facility] Condition: Stable Is patient prescribed a controlled substance at d/c from ED?: No Referrals: Gracie Zhao MD [Primary Care Provider] - 1-2 days
[2021-06-27 16:30] LABS: Basophils # (A) 0.1 k/uL (0-0.2); Basophils % (A) 1 %; Eosinophils # (A) 0.1 k/uL (0-0.7); Eosinophils % (A) 1 %; HCT 50.8 % (39.0-53.0); HGB 17.3 gm/dL (13.0-17.5); Lymphocytes # (A) 1.1 k/uL (1.0-4.8); Lymphocytes % (A) 13 %; MCH 31.6 pg (25.0-35.0); MCV 93.1 fL (80.0-100.0); Mean Platelet Volume 7.4; Monocytes # (A) 0.3 k/uL (0-1.0); Monocytes % (A) 4 %; Neutrophils # (A) 6.8 k/uL (1.3-7.7); Neutrophils % (A) 81 %; Platelet Count 224 k/uL (150-450); RBC 5.46 m/uL (4.30-5.90); RDW 12.1 % (11.5-15.5); WBC 8.4 k/uL (3.8-10.6)
[2021-06-27 16:36] LABS: Amorphous Sediment,Urine Moderate /hpf; Appearance,Urine Turbid (Clear); Bilirubin,Urine Negative (Negative); Blood,Urine Negative (Negative); Color,Urine Yellow; Glucose,Urine (UA) Negative (Negative); Ketones,Urine Negative (Negative); Leukocyte Esterase,Urine Negative (Negative); Nitrite,Urine Negative (Negative); PH, Urine 7.5 (5.0-8.0); Protein,Urine Trace (Negative); Specific Gravity,Urine 1.025 (1.001-1.035); Urobilinogen,Urine <2.0 mg/dL (<2.0)
[2021-06-27 16:45] LABS: ALT 30 U/L (4-49); AST 30 U/L (17-59); African American GFR (CKD) >90 (>60 ml/min/1.73 sqM); Albumin 4.6 g/dL (3.5-5.0); Alkaline Phosphatase 66 U/L (38-126); Anion Gap 9 mmol/L; Blood Urea Nitrogen 16 mg/dL (9-20); Calcium 9.9 mg/dL (8.4-10.2); Carbon Dioxide 29 mmol/L (22-30); Chloride 101 mmol/L (98-107); Glucose 120 mg/dL (74-99); Lipase 53 U/L (23-300); Non-African American GFR(CKD) 90 (>60 ml/min/1.73 sqM); Potassium 3.9 mmol/L (3.5-5.1); Sodium 139 mmol/L (137-145); Total Bilirubin 0.5 mg/dL (0.2-1.3); Total Protein 7.8 g/dL (6.3-8.2)
[2021-06-27] MEDS ORDERED: MORPHINE SULFATE 4 MG/ML SYRINGE IVP STA ×2 (17:53→19:48)
--- NOTE | 2021-06-27 18:58 | XR ---
EXAMINATION TYPE: XR KUB DATE OF EXAM: 06/27/2021 COMPARISON: 10/25/2018 HISTORY: Abdominal pain TECHNIQUE: 2 views upright FINDINGS: There are multiple intestinal fluid levels throughout the abdomen. This appears to involve the large and small bowel loops. There is no evidence of free air. Lung bases are clear. IMPRESSION: Intestinal fluid levels throughout the abdomen in the large and small bowel down to the s igmoid colon and consistent with ileus. This appears new compared to old exam.
[2021-06-27] MEDS ORDERED: NALOXONE 0.4 MG/ML 1 ML VIAL IV PRN (20:54)
[2021-06-28] MEDS ORDERED: MORPHINE SULFATE 2 MG/ML SYRINGE IVP PRN (06:38)
[2021-06-28] MEDS: PANTOPRAZOLE 40 MG TABLET PO SCH (08:55)
[2021-06-28] MEDS: LEVOTHYROXINE 50 MCG TAB PO SCH (08:58)
[2021-06-28] MEDS: SODIUM CHLORIDE 0.9% 1,000 ML IV SCH ×2 (09:01→23:18)
--- NOTE | 2021-06-28 10:40 | P.HPIM ---
History of Present Illness Patient is a pleasant 41-year-old male came in with the diffuse mild persistent abdominal pain patient is bit of a poor historian. Patient had history of partial left recommending cholecystectomy in the past. Patient also does have bowel sounds are denied any nausea vomiting. Patient had abdominal x-ray which showed multiple air-fluid levels although patient does have bowel sounds. Patient is presently nothing by mouth Gen. surgery was consulted patient doesn't have any NG tube at this time REVIEW OF SYSTEMS: CONSTITUTIONAL: No fever, no malaise, no fatigue. HEENT: No recent visual problems or hearing problems. Denied any sore throat. CARDIOVASCULAR: No chest pain, orthopnea, PND, no palpitations, no syncope. PULMONARY: No shortness of breath, no cough, no hemoptysis. GASTROINTESTINAL: No diarrhea, no nausea, no vomiting. NEUROLOGICAL: No headaches, no weakness, no numbness. HEMATOLOGICAL: Denies any bleeding or petechiae. GENITOURINARY: Denies any burning micturition, frequency, or urgency. MUSCULOSKELETAL/RHEUMATOLOGICAL: Denies any joint pain, swelling, or any muscle pain. ENDOCRINE: Denies any polyuria or polydipsia. The rest of the 14-point review of systems is negative. PHYSICAL EXAMINATION: GENERAL: The patient is alert and oriented x3, not in any acute distress. Well developed, well nourished. HEENT: Pupils are round and equally reacting to light. EOMI. No scleral icterus. No conjunctival pallor. Normocephalic, atraumatic. No pharyngeal erythema. No thyromegaly. CARDIOVASCULAR: S1 and S2 present. No murmurs, rubs, or gallops. PULMONARY: Chest is clear to auscultation, no wheezing or crackles. ABDOMEN: Soft, nontender, nondistended, normoactive bowel sounds. No palpable organomegaly. MUSCULOSKELETAL: No joint swelling or deformity. EXTREMITIES: No cyanosis, clubbing, or pedal edema. NEUROLOGICAL: Gross neurological examination did not reveal any focal deficits. SKIN: No rashes. Assessment and plan -Ileus: Nothing by mouth, Gen. surgery evaluation as patient is nauseous probably can be started on clear liquid diet and monitor. -Gastroesophageal reflux disease -hyperthyroidism -Development delay DVT prophylaxis: Lovenox Past Medical History Past Medical History: Cancer, GERD/Reflux, Thyroid Disorder Additional Past Medical History / Comment(s): DEVELOPMENTALLY DELAYED- COGNITIVE FUNCTION AT 11-12 YEAR OLD.,. ABDOMINAL PAIN , KIDNEY CANCER seeing Dr. Paul for abd pain for 4 months History of Any Multi-Drug Resistant Organisms: None Reported Past Surgical History: Cholecystectomy Additional Past Surgical History / Comment(s): KIDNEY SURGERY-MASS REMOVED Past Anesthesia/Blood Transfusion Reactions: Previous Problems w/ Anesthesia Additional Past Anesthesia/Blood Transfusion Reaction / Comment(s): DIFFICULT INTUBATION Past Psychological History: No Psychological Hx Reported Additional Psychological History / Comment(s): DEVELOPMENTALLY DELAYED - Smoking Status: Never smoker Past Alcohol Use History: None Reported Past Drug Use History: None Reported - Past Family History Mother History Unknown: Yes Family Medical History: No Reported History Father Family Medical History: Diabetes Mellitus Additional Family Medical History / Comment(s): neuropathy Medications and Allergies Home Medications Medication Instructions Recorded Confirmed Type Levothyroxine Sodium [Synthroid] 50 mcg PO DAILY 09/02/14 06/27/21 History Dicyclomine [Bentyl] 20 mg PO BID 10/23/18 06/27/21 History Ergocalciferol (Vitamin D2) 1,250 mcg PO Q7D 06/27/21 06/27/21 History [Drisdol (50,000 Iu)] Famotidine [Pepcid] 20 mg PO HS PRN 06/27/21 06/27/21 History Pantoprazole [Protonix] 40 mg PO DAILY 06/27/21 06/27/21 History Allergies Allergy/AdvReac Type Severity Reaction Status Date / Time No Known Allergies Allergy Verified 06/27/21 16:27 Physical Exam Vitals: Vital Signs Temp Pulse Pulse Resp BP BP Pulse Ox 06/28/21 07:00 97.6 F 61 18 103/67 99 06/28/21 02:20 97.4 F L 65 17 124/77 99 06/27/21 22:58 98.2 F 84 16 139/86 99 06/27/21 21:51 68 20 126/85 97 06/27/21 20:02 72 18 106/78 94 L 06/27/21 14:42 97.8 F 98 20 150/105 95 Intake and Output 06/27/21 06/28/21 06/28/21 22:59 06:59 14:59 Intake Total 0 Balance 0 Intake: Oral 0 Other: # Voids 0 Weight 102.058 kg Results CBC & Chem 7: 06/27/21 16:25 06/27/21 16:25 Labs: Abnormal Lab Results - Last 24 Hours (Table) 06/27/21 06/27/21 Range/Units 16:25 16:25 Glucose 120 H (74-99) mg/dL Urine Protein Trace H (Negative) Amorphous Sediment Moderate H (None) /hpf Thrombosis Risk Factor Assmnt - Choose All That Apply Any of the Below Risk Factors Present?: No Other Risk Factors: No Thrombosis Risk Factor Assessment Level: Very Low Risk
[2021-06-28] MEDS: ENOXAPARIN 40 MG/0.4 ML SYRINGE SQ SCH (10:42)
[2021-06-28] MEDS: KETOROLAC 15 MG/ML 1 ML VIAL IVP PRN ×2 (13:15→23:17)
[2021-06-28] MEDS: HYDROcodone/APAP 5-325MG 1 EACH TAB PO PRN (14:34)
--- NOTE | 2021-06-28 15:27 | P.GSCN ---
History of Present Illness Consult date: 06/28/21 History of present illness: CHIEF COMPLAINT: Abdominal pain HISTORY OF PRESENT ILLNESS: The patient is a 41 year old male admitted for abdominal pain. His father is at bedside and gives all history. Patient has developemental delay. He has 4 weeks of abdominal pain now worse in the past 3 to 4 days. No recent blood in stools. No hematemesis. No fevers or chills. Cooper suarez had similar episode over 1 month ago. General surgery is consulted for abdominal pain. PAST MEDICAL HISTORY: See list and reviewed PAST SURGICAL HISTORY: See list and reviewed MEDICATIONS: See list and reviewed ALLERGIES: See list and reviewed SOCIAL HISTORY: See list and reviewed FAMILY HISTORY: See list and reviewed REVIEW OF ORGAN SYSTEMS: CONSTITUTIONAL: No fevers or chills. No recent weight loss. EYES: Denies any trouble with vision. Wears glasses. HEENT: No difficulties with hearing. No nosebleeds. No difficulty swallowing. RESPIRATORY: Denies pneumonia. Denies any troubles with breathing or dyspnea on exertion. CARDIOVASCULAR: Denies any chest pain, palpitations, or recent heart attacks. GASTROINTESTINAL: Denies fatty food intolerance. Denies change in bowel habits and gas bloat. Has gastroesophageal reflux disease. GENITOURINARY: History of kidney cancer. NEUROLOGICAL: Denies any numbness or tingling along the distal extremities. No seizure disorders or headaches. MUSCULOSKELETAL: Denies any back pain, stiffness or joint arthritis. SKIN: No current skin cancer. No rash. PSYCHIATRIC: Has developmental delay. ENDOCRINE: Has hypothyroidism. Denies any blood sugar glucose intolerance. HEME/LYMPHATIC: Denies any lumps and bumps around the neck. No recent deep venous thrombosis. ALLERGY/IMMUNOLOGY: No immunoglobulin therapy. No immune deficiencies. BREAST: Denies current breast lumps, pain or nipple discharge. PHYSICAL EXAM: VITALS: Reviewed CONSTITUTIONAL: Well developed and in no acute distress. EYES: Conjuctivae without sclera icterus. Extraocular movements grossly intact. HEAD, EARS, NOSE, THROAT: Moist buccal mucosa. Head is atraumatic, normocephalic. Hears conversational speech. No nasal drainage. NECK: Supple. No JV distention. No thyroidomegaly. RESPIRATORY: Non-labored respirations and equal bilateral excursions. No gross wheezes. CARDIOVASCULAR: Regular rate and rhythm. Palpable 2+ radial pulses. ABDOMEN: Tender at epigastrium. No peritonitis. LYMPH: No neck lymphadenopathy. MUSCULOSKELETAL: Nail and fingers with good capillary refill. SKIN: Warm and well perfused with good skin turgor. NEUROLOGIC: Cranial nerves II through XII grossly intact. No focal or lateralizing signs. Has developmental delay. PSYCH: Flat affect. Alert and oriented to person. CLINCAL LABS: Reviewed. WBC normal at 8.4. Hgb normal at 17.3 IMAGING: Independently reviewed abdominal x-ray demonstrates multiple air fluid levels. This is my independent interpretation. RADIOLOGY: Report reviewed of abdominal xray with ileus. ASSESSMENT: 1. Epigastric abdominal pain. 2. Ileus 3. Cognitive delay. PLAN: 1. Recommend CT of the abdomen and pelvis for new ileus versus bowel obstruction. 2. Recommend EGD for gastritis and epigastric pain. 3. May have diet with NPO after midnight. 4. All questions addressed with his father. Thank you for this kind consultation. 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 ABDOMINAL PAIN , KIDNEY CANCER seeing Dr. Paul for abd pain for 4 months History of Any Multi-Drug Resistant Organisms: None Reported Past Surgical History: Cholecystectomy Additional Past Surgical History / Comment(s): KIDNEY SURGERY-MASS REMOVED Past Anesthesia/Blood Transfusion Reactions: Previous Problems w/ Anesthesia Additional Past Anesthesia/Blood Transfusion Reaction / Comm: DIFFICULT INTUBATION Past Psychological History: No Psychological Hx Reported Additional Psychological History / Comment(s): DEVELOPMENTALLY DELAYED - Smoking Status: Never smoker Past Alcohol Use History: None Reported Past Drug Use History: None Reported - Past Family History Mother History Unknown: Yes Family Medical History: No Reported History Father Family Medical History: Diabetes Mellitus Additional Family Medical History / Comment(s): neuropathy Medications and Allergies Home Medications Medication Instructions Recorded Confirmed Type Levothyroxine Sodium [Synthroid] 50 mcg PO DAILY 09/02/14 06/27/21 History Dicyclomine [Bentyl] 20 mg PO BID 10/23/18 06/27/21 History Ergocalciferol (Vitamin D2) 1,250 mcg PO Q7D 06/27/21 06/27/21 History [Drisdol (50,000 Iu)] Famotidine [Pepcid] 20 mg PO HS PRN 06/27/21 06/27/21 History Pantoprazole [Protonix] 40 mg PO DAILY 06/27/21 06/27/21 History Allergies Allergy/AdvReac Type Severity Reaction Status Date / Time No Known Allergies Allergy Verified 06/27/21 16:27 Surgical - Exam Vital Signs Temp Pulse Resp BP Pulse Ox 97.8 F 98 20 150/105 95 06/27/21 14:42 06/27/21 14:42 06/27/21 14:42 06/27/21 14:42 06/27/21 14:42 Results - Labs 06/27/21 16:25 06/27/21 16:25 Abnormal Lab Results - Last 24 Hours (Table) 06/27/21 06/27/21 Range/Units 16:25 16:25 Glucose 120 H (74-99) mg/dL Urine Protein Trace H (Negative) Amorphous Sediment Moderate H (None) /hpf Diabetes panel 06/27/21 Range/Units 16:25 Sodium 139 (137-145) mmol/L Potassium 3.9 (3.5-5.1) mmol/L Chloride 101 (98-107) mmol/L Carbon Dioxide 29 (22-30) mmol/L BUN 16 (9-20) mg/dL Creatinine 1.04 (0.66-1.25) mg/dL Glucose 120 H (74-99) mg/dL Calcium 9.9 (8.4-10.2) mg/dL AST 30 (17-59) U/L ALT 30 (4-49) U/L Alkaline Phosphatase 66 (38-126) U/L Total Protein 7.8 (6.3-8.2) g/dL Albumin 4.6 (3.5-5.0) g/dL Calcium panel 06/27/21 Range/Units 16:25 Calcium 9.9 (8.4-10.2) mg/dL Albumin 4.6 (3.5-5.0) g/dL Pituitary panel 06/27/21 Range/Units 16:25 Sodium 139 (137-145) mmol/L Potassium 3.9 (3.5-5.1) mmol/L Chloride 101 (98-107) mmol/L Carbon Dioxide 29 (22-30) mmol/L BUN 16 (9-20) mg/dL Creatinine 1.04 (0.66-1.25) mg/dL Glucose 120 H (74-99) mg/dL Calcium 9.9 (8.4-10.2) mg/dL Adrenal panel 06/27/21 Range/Units 16:25 Sodium 139 (137-145) mmol/L Potassium 3.9 (3.5-5.1) mmol/L Chloride 101 (98-107) mmol/L Carbon Dioxide 29 (22-30) mmol/L BUN 16 (9-20) mg/dL Creatinine 1.04 (0.66-1.25) mg/dL Glucose 120 H (74-99) mg/dL Calcium 9.9 (8.4-10.2) mg/dL Total Bilirubin 0.5 (0.2-1.3) mg/dL AST 30 (17-59) U/L ALT 30 (4-49) U/L Alkaline Phosphatase 66 (38-126) U/L Total Protein 7.8 (6.3-8.2) g/dL Albumin 4.6 (3.5-5.0) g/dL Assessment and Plan (1) Cognitive developmental delay Current Visit: Yes Status: Acute Code(s): F81.9 - DEVELOPMENTAL DISORDER OF SCHOLASTIC SKILLS, UNSPECIFIED SNOMED Code(s): 128302068 (2) Ileus Current Visit: Yes Status: Acute Code(s): K56.7 - ILEUS, UNSPECIFIED SNOMED Code(s): 872679798 (3) Abdominal pain Current Visit: No Status: Acute Code(s): R10.9 - UNSPECIFIED ABDOMINAL PAIN SNOMED Code(s): 40894275
[2021-06-28] MEDS: IOPAMIDOL CONTRAST (ORAL USE) VIAL PO PRN ×2 (16:09→17:03)
--- NOTE | 2021-06-28 18:28 | CT ---
EXAMINATION TYPE: CT abdomen pelvis w con DATE OF EXAM: 06/28/2021 COMPARISON: 05/06/2021 HISTORY: Abodminal pain, ileus CT DLP: 1157 mGycm Automated exposure control for dose reduction was used. CONTRAST: Performed with IV Contrast, patient injected with 100 mL of Isovue 300. There is mild subsegmental atelectasis at the lung bases. Heart size is normal. There is no pericardi al effusion. Liver spleen pancreas stomach appear intact. The bile ducts are not dilated. There are clips from cho lecystectomy. There is no adrenal mass. Kidneys show satisfactory contrast opacification. There is no hydronephrosi s. Ureters are not dilated. Delayed images show normal renal excretion. There is no retroperitoneal a denopathy. Terminal ileum appears normal. There is no mesenteric edema. There is no ascites or free a ir. There is no bowel obstruction. Bladder distends smoothly. There is no inguinal hernia. There is no free fluid in the pelvis. There i s no evidence of a pelvic mass. The lumbar vertebra have normal spacing and alignment. Posterior elements are intact. There is no com pression fracture. There is posterior mild disc herniation at L4-5. Bony pelvis is intact. The hip opal ints are intact. IMPRESSION: Negative CT scan abdomen and pelvis. No adverse change compared to old exam. Mild subsegmental atelec tasis is noted at the lung bases increased compared to old exam.
[2021-06-28] MEDS: ONDANSETRON 4 MG/2 ML VIAL IVP PRN (23:48)
[2021-06-29] MEDS: MORPHINE SULFATE 4 MG/ML SYRINGE IVP PRN ×4 (04:11→18:03)
[2021-06-29] MEDS: LEVOTHYROXINE 50 MCG TAB PO SCH (04:12)
[2021-06-29] MEDS: HYDROcodone/APAP 5-325MG 1 EACH TAB PO PRN ×2 (06:36→20:19)
[2021-06-29] MEDS: PANTOPRAZOLE 40 MG TABLET PO SCH ×2 (08:00→20:20)
[2021-06-29] MEDS: ENOXAPARIN 40 MG/0.4 ML SYRINGE SQ SCH (08:01)
[2021-06-29] MEDS ORDERED: PROPOFOL 10 MG/ML 20 ML VIAL IV ONE (08:47)
[2021-06-29] MEDS ORDERED: IV FLUID CONTINUATION 1,000 ML IV ONE (08:53)
--- NOTE | 2021-06-29 09:14 | P.PCN ---
Date of Procedure: 06/29/21 Description of Procedure: PREOPERATIVE DIAGNOSIS: Gastritis Epigastric abdominal pain Cognitive delay POSTOPERATIVE DIAGNOSIS: Cognitive delay Gastritis. Gastroparesis Sleep apnea OPERATION: Esophagogastroduodenoscopy with biopsies along antrum, esophagus, duodenum SURGEON: Isaura Downs MD ANESTHESIA: MAC. INDICATIONS: The patient is a 41-year-old male who presents with epigastric abdominal pain including gastritis . Benefits and risks of the procedure were described. Informed consent was obtained. DESCRIPTION: The patient was brought into the endoscopy suite and laid in the left lateral decubitus position. An Olympus gastroscope was passed along the posterior oropharynx down to the distal esophagus where the squamocolumnar junction was encountered at 40 cm from the incisors. The stomach was entered and no bile reflux was found. Additional findings are listed below. Biopsies with cold forceps were obtained of the antrum. The first through third portion of the duodenum was examined and cold biopsies were obtained for celiac disease and duodenitis. Retroflexion of the scope confirmed Hill grade 3 lower esophageal valve. The squamocolumnar junction demonstrated LA grade B erosive esophagitis. The stomach was desufflated. The patient tolerated the procedure well. FINDINGS: Squamocolumnar junction 40 cm from the incisors. Diaphragmatic hiatus at 40 cm. Hill grade 3 lower esophageal valve. LA grade B erosive esophagitis with biopsies obtained of forceps Cold forceps biopsies obtained for duodenitis Chronic gastritis with cold forcep biopsies obtained for gastritis Retained food proximal gastric cardia for gastroparesis Decreased oxygen saturation during procedure suspicious for sleep apnea RECOMMENDATIONS: 1. Start Reglan for gastroparesis 2. Await biopsies for further recommendations 3. Dysphagia chopped diet 4. Recommend evaluation for sleep apnea 5. Dietary consultation for gastroparesis
[2021-06-29] MEDS: METOCLOPRAMIDE 5 MG/ML 2 ML VIAL IVP SCH ×3 (11:16→20:20)
[2021-06-29] MEDS: SODIUM CHLORIDE 0.9% 1,000 ML IV SCH ×2 (11:24→22:38)
--- NOTE | 2021-06-29 12:00 | P.PN ---
Subjective Patient is a pleasant 41-year-old male came in with the diffuse mild persistent abdominal pain patient is bit of a poor historian. Patient had history of partial left recommending cholecystectomy in the past. Patient also does have bowel sounds are denied any nausea vomiting. Patient had abdominal x-ray which showed multiple air-fluid levels although patient does have bowel sounds. Patient is presently nothing by mouth Gen. surgery was consulted patient doesn't have any NG tube at this time 06/29/2021 Patient was having multiple episodes of pain because of which I discussed uterine nonsteroidal anti-intermittent medication patient was started on morphine. His pain is much better today patient did have bowel movements yesterday. Patient underwent the upper GI endoscopy which showed gastritis and possibility of gastroparesis. Patient was started on Reglan by general surgery and the patient was started on Protonix discontinue nonsteroidal anti- inflammatory medications. Patient the pain is better feeling better today Constitutional: Denied any fatigue denied any fever. Cardio vascular: denied any chest pain, palpitations Gastrointestinal as mentioned in the interval history Pulmonary: Denied any shortness of breath cough Neurologic denied any new focal deficits All inpatient medications were reviewed and appropriate changes in these medications as dictated in the interval history and assessment and plan. PHYSICAL EXAMINATION: GENERAL: The patient is alert and oriented x3, not in any acute distress. Well developed, well nourished. HEENT: Pupils are round and equally reacting to light. EOMI. No scleral icterus. No conjunctival pallor. Normocephalic, atraumatic. No pharyngeal erythema. No thyromegaly. CARDIOVASCULAR: S1 and S2 present. No murmurs, rubs, or gallops. PULMONARY: Chest is clear to auscultation, no wheezing or crackles. ABDOMEN: Soft, nontender, nondistended, normoactive bowel sounds. No palpable organomegaly. MUSCULOSKELETAL: No joint swelling or deformity. EXTREMITIES: No cyanosis, clubbing, or pedal edema. NEUROLOGICAL: Gross neurological examination did not reveal any focal deficits. SKIN: No rashes. Assessment and plan -Abdominal pain: Nausea vomiting, secondary to gastritis and possible gastroparesis management as mentioned above. Patient will be continued on Protonix morphine advance her diet as tolerated possibility of discharge tomorrow -Gastroesophageal reflux disease -hyperthyroidism -Development delay DVT prophylaxis: Lovenox Objective - Vital Signs Vital signs: Vital Signs Temp 97.6 F 06/29/21 07:00 Pulse 82 10/31/21 07:00 Resp 18 06/29/21 07:00 BP 151/94 06/29/21 07:00 Pulse Ox 94 L 06/29/21 07:00 Intake & Output 06/28/21 06/29/21 06/29/21 18:59 06:59 18:59 Intake Total 1298 200 Output Total 400 Balance -400 1298 200 Intake: IV 200 Intake, IV Titration 675 Amount Sodium Chloride 0.9% 1, 675 000 ml @ 75 mls/hr IV . [id number] [facility] Rx#:[id number] Oral 623 Output: Urine 400 Other: # Voids 1 3 # Bowel Movements 1 2 - Labs CBC & Chem 7: 06/27/21 16:25 06/27/21 16:25
[2021-06-29] MEDS: ONDANSETRON 4 MG/2 ML VIAL IVP PRN (22:38)
[2021-06-30] MEDS: MORPHINE SULFATE 4 MG/ML SYRINGE IVP PRN (00:21)
[2021-06-30] MEDS: METOCLOPRAMIDE 5 MG/ML 2 ML VIAL IVP SCH (03:48)
[2021-06-30] MEDS: HYDROcodone/APAP 5-325MG 1 EACH TAB PO PRN ×2 (03:49→10:38)
[2021-06-30] MEDS: LEVOTHYROXINE 50 MCG TAB PO SCH (05:46)
[2021-06-30] MEDS: PANTOPRAZOLE 40 MG TABLET PO SCH (08:07)
[2021-06-30] MEDS: ENOXAPARIN 40 MG/0.4 ML SYRINGE SQ SCH (08:07)
[2021-06-30 08:13] VITALS: BP 111/71; PULSE 77; RESP 18; TEMP 97.5
[2021-06-30 12:05] VITALS: BMI 25.3
--- NOTE | 2021-06-30 16:24 | P.PN ---
Subjective Progress Note Date: 06/30/21 CHIEF COMPLAINT: Abdominal pain HISTORY OF PRESENT ILLNESS: This is a 41-year-old male with developmental delay. Persistent hospital with abdominal pain. Patient is status post EGD did show gastritis and gastroparesis. Patient was started on Reglan for gastroparesis. Patient has complained of more abdominal pain after taking the Reglan. Otherwise he is tolerating diet. Abdominal pain has improved since admission. Denies any vomiting. Afebrile. No new labs PHYSICAL EXAM: VITAL SIGNS: Reviewed GENERAL: Well-developed in no acute distress. HEENT: No sclera icterus. Extraocular movements grossly intact. Moist buccal mucosa. Head is atraumatic, normocephalic. Hears conversational speech. No nasal drainage. NECK: Supple without lymphadenopathy. CHEST: Non-labored respirations and equal bilateral excursions. CARDIOVASCULAR: Palpable 2+ radial pulses. ABDOMEN: Soft. Nondistended. Nontender. MUSCULOSKELETAL: No clubbing or cyanosis. NEUROLOGIC: No focal or lateralizing signs. Cranial nerves II through XII grossly intact. SKIN: Well perfused. Good skin turgor. ASSESSMENT: 1. Epigastric abdominal pain with gastritis and gastroparesis noted on EGD PLAN: -Reglan was discontinued due to increase in abdominal pain after taking medication -Continue PPI -Patient can be discharged from surgical standpoint -Agree with continuing to follow-up with his GI physician Physician [facility] Nurse note has been reviewed by physician. Signing provider agrees with the documented findings, assessment, and plan of care. Objective - Vital Signs Vital signs: Vital Signs Temp 97.5 F L 06/30/21 07:15 Pulse 77 06/30/21 07:15 Resp 18 06/30/21 07:15 BP 111/71 06/30/21 07:15 Pulse Ox 92 L 06/30/21 07:15 Intake & Output 06/29/21 06/30/21 06/30/21 18:59 06:59 18:59 Intake Total 800 Output Total 0 Balance 800 0 Weight 102.058 kg Intake: IV 200 Oral 600 Output: Emesis 0 Other: # Voids 3 # Bowel Movements 2 - Labs CBC & Chem 7: 06/27/21 16:25 06/27/21 16:25
== END 2021-06-30 12:02 | disposition home or self-care (01) | DRG 392 ==
LOC: EC 13:45 → 6NMEDSUR 20:54 → OBSVTOIN 06-28 12:37
PROVIDERS: ADMIT Hospitalist; ATTEND Hospitalist
PROC: 0DB78ZX Excision of Stomach, Pylorus, Via Natural or Artificial Opening Endoscopic, Diagnostic (ICD-10-PCS; 2021-06-29)
PROC: 0DB38ZX Excision of Lower Esophagus, Via Natural or Artificial Opening Endoscopic, Diagnostic (ICD-10-PCS; 2021-06-29)
PROC: 0DB98ZX Excision of Duodenum, Via Natural or Artificial Opening Endoscopic, Diagnostic (ICD-10-PCS; principal; 2021-06-29 08:30)
DX: K29.70 Gastritis, unspecified, without bleeding (principal); K56.7 Ileus, unspecified; K22.10 Ulcer of esophagus without bleeding; E05.90 Thyrotoxicosis, unspecified without thyrotoxic crisis or storm; G47.30 Sleep apnea, unspecified; Z20.822 Contact with and (suspected) exposure to COVID-19; K21.9 Gastro-esophageal reflux disease without esophagitis; Z79.890 Hormone replacement therapy; Z79.899 Other long term (current) drug therapy; Z83.3 Family history of diabetes mellitus; Z85.528 Personal history of other malignant neoplasm of kidney; Z90.5 Acquired absence of kidney; R62.50 Unspecified lack of expected normal physiological development in childhood; K29.50 Unspecified chronic gastritis without bleeding; K31.84 Gastroparesis
CPT/HCPCS: 36415; 43239; 74018; 74177; 80053; 81001; 83605; 83690; 85025; 87635; 88305; 96361; 96374; 96376; 99285

== ENCOUNTER 2022-07-04 20:44 | Emergency (ER) | payer MEDICARE, OTHER ==
[2022-07-04] MEDS ORDERED: MORPHINE SULFATE 4 MG/ML SYRINGE IV STA ×2 (20:53→23:13)
[2022-07-04] MEDS ORDERED: ONDANSETRON 4 MG/2 ML VIAL IVP STA (20:53)
[2022-07-04] MEDS ORDERED: SODIUM CHLORIDE 0.9% 1,000 ML IV STA (20:53)
--- NOTE | 2022-07-04 20:59 | ED ---
Abdominal Pain HPI - General Chief Complaint: Abdominal Pain Stated Complaint: R sided abd pain Time Seen by Provider: 07/04/22 20:49 Source: family, RN notes reviewed Mode of arrival: ambulatory Limitations: no limitations - History of Present Illness Initial Comments: This is a pleasant 42-year-old developmentally delayed individual who previously had a cholecystectomy and a tumor removed from his kidney. Patient presents today stating the he developed abdominal pain earlier today. Pain has been constant since then. Patient states that the pain seems to be more in the right lower quadrant. No nausea or vomiting. No problems with bowel movements or urination. Possible diminished appetite. No headache, no fever or chills, no changes in vision or hearing, no sore throat or difficulty with speech, no neck pain, no chest pain or shortness of breath, no abdominal pain, no nausea or vomiting, no changes in urination or bowel movements, no numbness or tingling, no extremity pain, no skin rashes or lesions. Past medical, surgical, social, and family history reviewed. MD Complaint: abdominal pain - Related Data Home Medications Medication Instructions Recorded Confirmed Levothyroxine Sodium [Synthroid] 50 mcg PO DAILY 09/02/14 06/27/21 Dicyclomine [Bentyl] 20 mg PO BID 10/23/18 06/27/21 Ergocalciferol (Vitamin D2) 1,250 mcg PO Q7D 06/27/21 06/27/21 [Drisdol (50,000 Iu)] Famotidine [Pepcid] 20 mg PO HS PRN 06/27/21 06/27/21 Pantoprazole [Protonix] 40 mg PO DAILY 06/27/21 06/27/21 Previous Rx's Medication Instructions Recorded Ondansetron Odt [Zofran Odt] 4 mg PO Q8HR PRN #12 tab 06/30/21 traMADol HCl [Ultram] 50 mg PO BID 3 Days #10 tab 06/30/21 Hyoscyamine Sulfate [Levsin] 0.125 mg PO TID PRN #12 tablet 07/05/22 Allergies Allergy/AdvReac Type Severity Reaction Status Date / Time No Known Allergies Allergy Verified 07/04/22 20:48 Review of Systems ROS Statement: Those systems with pertinent positive or pertinent negative responses have been documented in the HPI. ROS Other: All systems not noted in ROS Statement are negative. 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 ABDOMINAL PAIN , KIDNEY CANCER seeing Dr. Paul for abd pain for 4 months History of Any Multi-Drug Resistant Organisms: None Reported Past Surgical History: Cholecystectomy Additional Past Surgical History / Comment(s): KIDNEY SURGERY-MASS REMOVED Past Anesthesia/Blood Transfusion Reactions: Previous Problems w/ Anesthesia Additional Past Anesthesia/Blood Transfusion Reaction / Comment(s): DIFFICULT INTUBATION Past Psychological History: No Psychological Hx Reported Smoking Status: Never smoker Past Alcohol Use History: None Reported Past Drug Use History: None Reported - Past Family History Mother History Unknown: Yes Family Medical History: No Reported History Father Family Medical History: Diabetes Mellitus Additional Family Medical History / Comment(s): neuropathy General Exam - General Exam Comments Initial Comments: This is a pleasant 42-year-old developmentally delayed individual who previously had a cholecystectomy and a tumor removed from his kidney. Patient presents today stating the he developed abdominal pain earlier today. Pain has been constant since then. Patient states that the pain seems to be more in the right lower quadrant. No nausea or vomiting. No problems with bowel movements or urination. Possible diminished appetite. No headache, no fever or chills, no changes in vision or hearing, no sore throat or difficulty with speech, no neck pain, no chest pain or shortness of breath, no abdominal pain, no nausea or vomiting, no changes in urination or bowel movements, no numbness or tingling, no extremity pain, no skin rashes or lesions . Past medical, surgical, social, and family history reviewed. Limitations: no limitations General appearance: alert, in no apparent distress Head exam: Present: atraumatic, normocephalic, normal inspection Eye exam: Present: normal appearance, PERRL, EOMI. Absent: scleral icterus, conjunctival injection, periorbital swelling ENT exam: Present: normal exam, mucous membranes moist, normal external ear exam Neck exam: Present: normal inspection. Absent: tenderness, meningismus, lymphadenopathy Respiratory exam: Present: normal lung sounds bilaterally. Absent: respiratory distress, wheezes, rales, rhonchi, stridor Cardiovascular Exam: Present: normal rhythm, tachycardia, normal heart sounds. Absent: systolic murmur, diastolic murmur, rubs, gallop, clicks GI/Abdominal exam: Present: soft, tenderness (left of umbilicus), guarding, normal bowel sounds, other (This is a pleasant 42-year-old developmentally delayed individual who previously had a cholecystectomy and a tumor removed from his kidney. Patient presents today stating the he developed abdominal pain earlier today. Pain has been constant since then. ). Absent: distended, rebound, rigid Extremities exam: Present: normal inspection, full ROM, normal capillary refill. Absent: tenderness, pedal edema, joint swelling, calf tenderness Back exam: Present: normal inspection Neurological exam: Present: alert, oriented X3, CN II-XII intact Psychiatric exam: Present: normal affect, normal mood Skin exam: Present: warm, dry, intact, normal color. Absent: rash Course Vital Signs 07/04/22 07/04/22 07/04/22 20:45 21:27 21:39 Temperature 97.8 F 98.5 F Pulse Rate 121 H 68 88 Respiratory 20 16 16 Rate Blood Pressure 148/97 148/89 129/88 O2 Sat by Pulse 97 98 98 Oximetry 07/04/22 07/04/22 23:00 23:10 Temperature 98.1 F Pulse Rate 68 76 Respiratory 16 16 Rate Blood Pressure 138/98 130/89 O2 Sat by Pulse 98 100 Oximetry - Reevaluation(s) Reevaluation #1: 07/05/22 00:16 Medical record is reviewed Symptoms are improved here in the emergency department Patient is informed of results and questions answered Patient in no distress Medical Decision Making - Medical Decision Making Despite the patient indicating that the pain is mostly in the right abdomen, pat ient is mostly tender just left of the umbilicus. There really is no right- sided tenderness on physical examination. Patient mostly tender just left the umbilicus. Differential diagnosis includes diverticulitis. Less likely appendicitis. Does not appear to be consistent with urological disease, although possible. Does not appear to be consistent with cardiopulmonary disease. Given the patient's heart rate we will add on a lactic acid and blood cultures. We'll obtain an EKG and troponin. - Lab Data Result diagrams: 07/04/22 21:12 07/04/22 21:12 Lab Results 07/04/22 07/04/22 07/04/22 Range/Units 21:12 21:12 21:12 WBC 7.2 (3.8-10.6) k/uL RBC 5.51 (4.30-5.90) m/uL Hgb 17.3 (13.0-17.5) gm/dL Hct 50.3 (39.0-53.0) % MCV 91.2 (80.0-100.0) fL MCH 31.4 (25.0-35.0) pg MCHC 34.4 (31.0-37.0) g/dL RDW 12.3 (11.5-15.5) % Plt Count 224 (150-450) k/uL MPV 7.4 Neutrophils % 63 % Lymphocytes % 26 % Monocytes % 7 % Eosinophils % 1 % Basophils % 1 % Neutrophils # 4.6 (1.3-7.7) k/uL Lymphocytes # 1.9 (1.0-4.8) k/uL Monocytes # 0.5 (0-1.0) k/uL Eosinophils # 0.1 (0-0.7) k/uL Basophils # 0.0 (0-0.2) k/uL Sodium 141 (137-145) mmol/L Potassium 3.9 (3.5-5.1) mmol/L Chloride 98 (98-107) mmol/L Carbon Dioxide 30 (22-30) mmol/L Anion Gap 13 mmol/L BUN 13 (9-20) mg/dL Creatinine 1.14 (0.66-1.25) mg/dL Est GFR (CKD-EPI)AfAm >90 (>60 ml/min/1.73 sqM) Est GFR (CKD-EPI)NonAf 80 (>60 ml/min/1.73 sqM) Glucose 120 H (74-99) mg/dL Plasma Lactic Acid Ezequiel 1.4 (0.7-2.0) mmol/L Calcium 9.4 (8.4-10.2) mg/dL Total Bilirubin 1.0 (0.2-1.3) mg/dL AST 35 (17-59) U/L ALT 34 (4-49) U/L Alkaline Phosphatase 92 (38-126) U/L Total Protein 7.8 (6.3-8.2) g/dL Albumin 4.8 (3.5-5.0) g/dL Lipase 62 (23-300) U/L Urine Color Urine Appearance (Clear) Urine pH (5.0-8.0) Ur Specific Brick (1.001-1.035) Urine Protein (Negative) Urine Glucose (UA) (Negative) Urine Ketones (Negative) Urine Blood (Negative) Urine Nitrite (Negative) Urine Bilirubin (Negative) Urine Urobilinogen (<2.0) mg/dL Ur Leukocyte Esterase (Negative) Urine RBC (0-5) /hpf Urine WBC (0-5) /hpf Urine Mucus (None) /hpf 07/04/22 Range/Units 21:12 WBC (3.8-10.6) k/uL RBC (4.30-5.90) m/uL Hgb (13.0-17.5) gm/dL Hct (39.0-53.0) % MCV (80.0-100.0) fL MCH (25.0-35.0) pg MCHC (31.0-37.0) g/dL RDW (11.5-15.5) % Plt Count (150-450) k/uL MPV Neutrophils % % Lymphocytes % % Monocytes % % Eosinophils % % Basophils % % Neutrophils # (1.3-7.7) k/uL Lymphocytes # (1.0-4.8) k/uL Monocytes # (0-1.0) k/uL Eosinophils # (0-0.7) k/uL Basophils # (0-0.2) k/uL Sodium (137-145) mmol/L Potassium (3.5-5.1) mmol/L Chloride (98-107) mmol/L Carbon Dioxide (22-30) mmol/L Anion Gap mmol/L BUN (9-20) mg/dL Creatinine (0.66-1.25) mg/dL Est GFR (CKD-EPI)AfAm (>60 ml/min/1.73 sqM) Est GFR (CKD-EPI)NonAf (>60 ml/min/1.73 sqM) Glucose (74-99) mg/dL Plasma Lactic Acid Ezequiel (0.7-2.0) mmol/L Calcium (8.4-10.2) mg/dL Total Bilirubin (0.2-1.3) mg/dL AST (17-59) U/L ALT (4-49) U/L Alkaline Phosphatase (38-126) U/L Total Protein (6.3-8.2) g/dL Albumin (3.5-5.0) g/dL Lipase (23-300) U/L Urine Color Yellow Urine Appearance Clear (Clear) Urine pH 7.5 (5.0-8.0) Ur Specific Brick 1.045 H (1.001-1.035) Urine Protein 2+ H (Negative) Urine Glucose (UA) Trace H (Negative) Urine Ketones Trace H (Negative) Urine Blood Negative (Negative) Urine Nitrite Negative (Negative) Urine Bilirubin 1+ H (Negative) Urine Urobilinogen 2.0 (<2.0) mg/dL Ur Leukocyte Esterase Negative (Negative) Urine RBC 2 (0-5) /hpf Urine WBC 1 (0-5) /hpf Urine Mucus Many H (None) /hpf - EKG Data -: EKG Interpreted by Me EKG Comments: EKG done at [address]150 [address] sinus rhythm with a rate of 84. No acute ST or T-wave changes. Normal axis. Normal QRS morphology. Normal intervals. Disposition Clinical Impression: Abdominal pain, Diarrhea, Diverticulosis Disposition: HOME SELF-CARE Condition: Good Instructions (If sedation given, give patient instructions): Abdominal Pain (ED) Additional Instructions: Follow-up with your regular physician as directed. Return to the ER immediately if any symptoms worsen, new symptoms arise, or any other problems develop. Increase clear liquids. Follow up with the tactical/mobile watch officer on Wednesday as d irected. Prescriptions: Hyoscyamine Sulfate [Levsin] 0.125 mg PO TID PRN #12 tablet PRN Reason: Pain Is patient prescribed a controlled substance at d/c from ED?: No Referrals: Yaritza Paul MD [STAFF PHYSICIAN] - 07/06/22 Time of Disposition: 00:19
[2022-07-04 21:40] VITALS: RESP 16
[2022-07-04 21:51] LABS: Basophils % (A) 1 %; Eosinophils # (A) 0.1 k/uL (0-0.7); Eosinophils % (A) 1 %; HCT 50.3 % (39.0-53.0); HGB 17.3 gm/dL (13.0-17.5); Lymphocytes # (A) 1.9 k/uL (1.0-4.8); Lymphocytes % (A) 26 %; MCH 31.4 pg (25.0-35.0); MCHC 34.4 g/dL (31.0-37.0); MCV 91.2 fL (80.0-100.0); Mean Platelet Volume 7.4; Monocytes # (A) 0.5 k/uL (0-1.0); Monocytes % (A) 7 %; Neutrophils # (A) 4.6 k/uL (1.3-7.7); Neutrophils % (A) 63 %; Platelet Count 224 k/uL (150-450); RBC 5.51 m/uL (4.30-5.90); RDW 12.3 % (11.5-15.5); WBC 7.2 k/uL (3.8-10.6)
[2022-07-04 22:09] LABS: ALT 34 U/L (4-49); AST 35 U/L (17-59); African American GFR (CKD) >90 (>60 ml/min/1.73 sqM); Albumin 4.8 g/dL (3.5-5.0); Alkaline Phosphatase 92 U/L (38-126); Anion Gap 13 mmol/L; Blood Urea Nitrogen 13 mg/dL (9-20); Calcium 9.4 mg/dL (8.4-10.2); Carbon Dioxide 30 mmol/L (22-30); Chloride 98 mmol/L (98-107); Glucose 120 mg/dL (74-99); Lipase 62 U/L (23-300); Non-African American GFR(CKD) 80 (>60 ml/min/1.73 sqM); Potassium 3.9 mmol/L (3.5-5.1); Sodium 141 mmol/L (137-145); Total Protein 7.8 g/dL (6.3-8.2)
--- NOTE | 2022-07-04 22:21 | XR ---
EXAMINATION TYPE: XR abdomen 2V DATE OF EXAM: 07/04/2022 COMPARISON: 06/11/2021 HISTORY: Pain TECHNIQUE: 3 views supine and upright FINDINGS: There is no sign of intestinal obstruction or pneumoperitoneum. Fecal pattern is normal. No evidence of a mass. There are clips from cholecystectomy. The bowel gas pattern is normal. No pathol ogic calcification seen over the kidneys. IMPRESSION: Nonacute abdomen. No adverse change.
[2022-07-04 22:31] LABS: Appearance,Urine Clear (Clear); Bilirubin,Urine 1+ (Negative); Blood,Urine Negative (Negative); Color,Urine Yellow; Glucose,Urine (UA) Trace (Negative); Ketones,Urine Trace (Negative); Leukocyte Esterase,Urine Negative (Negative); Mucus,Urine Many /hpf; Nitrite,Urine Negative (Negative); PH, Urine 7.5 (5.0-8.0); Protein,Urine 2+ (Negative); RBC,Urine 2 /hpf (0-5); Specific Gravity,Urine 1.045 (1.001-1.035); WBC,Urine 1 /hpf (0-5)
--- NOTE | 2022-07-05 00:10 | CT ---
EXAMINATION TYPE: CT abdomen pelvis w con DATE OF EXAM: 07/04/2022 COMPARISON: 06/28/2021 HISTORY: central abd pain CT DLP: 1196 mGycm Automated exposure control for dose reduction was used. CONTRAST: Performed with IV Contrast, patient injected with 100 mL of Isovue 300. Images obtained from the diaphragm to the floor the pelvis with the IV contrast. The lung bases are clear. No pleural effusion. Heart size is normal. No pericardial effusion. Liver s pleen and pancreas appear intact. There are clips from cholecystectomy. Stomach is intact. No evidenc e of pancreatic mass. There is no adrenal mass. Kidneys show satisfactory contrast opacification. No hydronephrosis. Delaye d images show normal renal excretion. No retroperitoneal adenopathy. The bladder distends smoothly. N o inguinal hernia. No free fluid in the pelvis. There are sigmoid diverticula. No diverticulitis. The re are small appendix appears normal. No evidence of a pelvic mass. No mesenteric edema. No ascites or free air. No sign of a bowel obstruc tion. The lumbar vertebrae have normal alignment. No compression fracture. Bony pelvis is intact. The hip joints are intact. Sacroiliac joints are intact. IMPRESSION: There are some scattered sigmoid diverticula. No diverticulitis. No acute abnormality of the abdomen pelvis. No adverse change compared to old exam. There is clearing of the atelectasis at the lung base s compared to the old exam.
[2022-07-05] MEDS ORDERED: DICYCLOMINE 20 MG TAB PO STA (00:17)
[2022-07-05 00:26] VITALS: BP 128/82; PULSE 72; TEMP 98
== END 2022-07-05 00:28 | disposition home or self-care (01) ==
LOC: EC 20:44
DX: R10.9 Unspecified abdominal pain (principal); R19.7 Diarrhea, unspecified; K57.90 Diverticulosis of intestine, part unspecified, without perforation or abscess without bleeding; K21.9 Gastro-esophageal reflux disease without esophagitis; E07.9 Disorder of thyroid, unspecified; Z79.1 Long term (current) use of non-steroidal anti-inflammatories (NSAID)
CPT/HCPCS: 36415; 93005; 80053; 83605; 83690; 85025; 81001; 87040; 74019; 74177; 99285; 96374; 96375 ×2; J2270; J2405; Q9967

== ENCOUNTER 2022-07-09 18:28 | Emergency (ER) | payer MEDICARE, OTHER ==
[2022-07-09 18:59] VITALS: TEMP 98.4
[2022-07-09] MEDS ORDERED: ONDANSETRON 4 MG/2 ML VIAL IVP STA (20:06)
[2022-07-09] MEDS ORDERED: SODIUM CHLORIDE 0.9% 1,000 ML IV STA (20:06)
[2022-07-09 20:45] LABS: Appearance,Urine Clear (Clear); Bilirubin,Urine Negative (Negative); Blood,Urine Negative (Negative); Color,Urine Yellow; Glucose,Urine (UA) Negative (Negative); Hyaline Casts,Urine 3 /lpf (0-2); Ketones,Urine 1+ (Negative); Leukocyte Esterase,Urine Negative (Negative); Mucus,Urine Moderate /hpf; Nitrite,Urine Negative (Negative); Protein,Urine 1+ (Negative); RBC,Urine 2 /hpf (0-5); Specific Gravity,Urine 1.035 (1.001-1.035); Urobilinogen,Urine <2.0 mg/dL (<2.0); WBC,Urine 1 /hpf (0-5)
[2022-07-09 20:47] LABS: Basophils # (A) 0.1 k/uL (0-0.2); Basophils % (A) 1 %; Eosinophils # (A) 0.1 k/uL (0-0.7); Eosinophils % (A) 1 %; HCT 51.2 % (39.0-53.0); HGB 18.2 gm/dL (13.0-17.5); Lymphocytes # (A) 1.5 k/uL (1.0-4.8); Lymphocytes % (A) 19 %; MCH 32.3 pg (25.0-35.0); MCHC 35.5 g/dL (31.0-37.0); Mean Platelet Volume 7.8; Monocytes # (A) 0.5 k/uL (0-1.0); Monocytes % (A) 6 %; Neutrophils # (A) 5.8 k/uL (1.3-7.7); Neutrophils % (A) 72 %; Platelet Count 232 k/uL (150-450); RBC 5.63 m/uL (4.30-5.90); RDW 12.3 % (11.5-15.5)
[2022-07-09 20:58] LABS: ALT 34 U/L (4-49); AST 33 U/L (17-59); African American GFR (CKD) >90 (>60 ml/min/1.73 sqM); Albumin 5.1 g/dL (3.5-5.0); Alkaline Phosphatase 96 U/L (38-126); Amylase 41 U/L (30-110); Anion Gap 10 mmol/L; Blood Urea Nitrogen 10 mg/dL (9-20); Calcium 9.6 mg/dL (8.4-10.2); Carbon Dioxide 30 mmol/L (22-30); Chloride 102 mmol/L (98-107); Glucose 103 mg/dL (74-99); Lipase 71 U/L (23-300); Non-African American GFR(CKD) 79 (>60 ml/min/1.73 sqM); Potassium 4.5 mmol/L (3.5-5.1); Sodium 142 mmol/L (137-145); Total Bilirubin 0.9 mg/dL (0.2-1.3); Total Protein 8.4 g/dL (6.3-8.2)
[2022-07-09 21:35] VITALS: BP 127/92; PULSE 89; RESP 16
--- NOTE | 2022-07-09 21:42 | ED ---
General Adult HPI - General Chief complaint: Nausea/Vomiting/Diarrhea Stated complaint: Vomiting Time Seen by Provider: 07/09/22 19:46 Source: patient, family, RN notes reviewed, old records reviewed Mode of arrival: ambulatory Limitations: no limitations - History of Present Illness Initial comments: Patient is a 42-year-old male who presents emergency Department with his father over concern for getting at home. Was seen here last Wednesday for some symptoms. Patient's family states he is not fully vomiting but is dry heaving occasionally. He is tolerating oral intake. Has been eating sandwiches without issue. Has been staying hydrated. Was brought in for further evaluation at this time. He has no acute complaints at bedside. Was eating just prior to arrival. Presents for further evaluation. No fevers, chills, sick contacts. No abdominal pain, nausea, vomiting currently. No chest pain or shortness of breath. - Related Data Home Medications Medication Instructions Recorded Confirmed Levothyroxine Sodium [Synthroid] 50 mcg PO DAILY 09/02/14 06/27/21 Dicyclomine [Bentyl] 20 mg PO BID 10/23/18 06/27/21 Ergocalciferol (Vitamin D2) 1,250 mcg PO Q7D 06/27/21 06/27/21 [Drisdol (50,000 Iu)] Famotidine [Pepcid] 20 mg PO HS PRN 06/27/21 06/27/21 Pantoprazole [Protonix] 40 mg PO DAILY 06/27/21 06/27/21 Previous Rx's Medication Instructions Recorded Ondansetron Odt [Zofran Odt] 4 mg PO Q8HR PRN #12 tab 06/30/21 traMADol HCl [Ultram] 50 mg PO BID 3 Days #10 tab 06/30/21 Hyoscyamine Sulfate [Levsin] 0.125 mg PO TID PRN #12 tablet 07/05/22 Ondansetron Odt [Zofran Odt] 4 mg PO Q8HR PRN #6 tab 07/09/22 Allergies Allergy/AdvReac Type Severity Reaction Status Date / Time No Known Allergies Allergy Verified 07/09/22 18:59 Review of Systems ROS Statement: Those systems with pertinent positive or pertinent negative responses have been documented in the HPI. Review of Systems: CONST: Denies fever EYES: Denies blurry vision ENT: Denies nasal congestion C/V: Denies Chest pain RESP: Denies shortness of breath GI: Denies abdominal pain : Denies dysuria SKIN: Denies rash. MSK: Denies joint pain. NEURO: Denies headache ROS Other: All systems not noted in ROS Statement are negative. 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 ABDOMINAL PAIN , KIDNEY CANCER seeing Dr. Paul for abd pain for 4 months History of Any Multi-Drug Resistant Organisms: None Reported Past Surgical History: Cholecystectomy Additional Past Surgical History / Comment(s): KIDNEY SURGERY-MASS REMOVED Past Anesthesia/Blood Transfusion Reactions: Previous Problems w/ Anesthesia Additional Past Anesthesia/Blood Transfusion Reaction / Comment(s): DIFFICULT INTUBATION Past Psychological History: No Psychological Hx Reported Smoking Status: Never smoker Past Alcohol Use History: None Reported Past Drug Use History: None Reported - Past Family History Mother History Unknown: Yes Family Medical History: No Reported History Father Family Medical History: Diabetes Mellitus Additional Family Medical History / Comment(s): neuropathy General Exam - General Exam Comments Initial Comments: General: Appears in no acute distress. HEAD: Normal with no signs of head trauma. EYES: PERRLA, EOMI, conjunctiva normal, no discharge. ENT: Hearing grossly intact, normal oropharynx. Moist mucous membranes. RESPIRATORY: Clear breath sounds bilaterally. No wheezes, rales, or rhonchi. C/V: Regular rate and rhythm. S1 and S2 auscultated, no edema, peripheral pulses 2+ and intact throughout ABD: Abd is soft, nontender, nondistended EXT: Normal range of motion, no obvious deformity SKIN: No rashes or lesions observed on exposed skin. NEURO: Alert and oriented 4. Limitations: no limitations Course Vital Signs 07/09/22 07/09/22 18:57 21:30 Temperature 98.4 F Pulse Rate 103 H 89 Respiratory 20 16 Rate Blood Pressure 133/87 127/92 O2 Sat by Pulse 96 95 Oximetry Medical Decision Making - Medical Decision Making Based on patient's presentation and physical exam, I'm concerned for possible viral illness for the patient. Could be dehydrated but he does appear to be tolerating oral intake. I discussed this with the father and we will obtain basic labs and they were in agreement with this plan. Patient will be symptomatically treated with 1 L fluid bolus and IV Zofran. Laboratory studies are all within acceptable limits. No obvious findings. Covid and flu negative. Vital signs remained within acceptable limits. On reevaluation, patient is tolerating oral intake. Exam is unchanged. He will be discharged home at this time. I discussed the negative workup with his father. They were in agreement with this plan. He'll follow-up with his PCP. I will provide the patient with a prescription for Zofran ODT. I instructed the patient to follow up with their PCP in the next 1-3 days. . I explained that the patient should return to the emergency department if they experience any worsening symptoms. Strict return precautions were discussed with the patient. The patient expressed understanding of these instructions. I answered all questions that the patient had. The patient was discharged home in good condition with their prescriptions and follow up information. - Lab Data Result diagrams: 07/09/22 20:22 07/09/22 20:22 Lab Results 07/09/22 07/09/22 07/09/22 Range/Units 20:22 20:22 20:22 WBC 8.0 (3.8-10.6) k/uL RBC 5.63 (4.30-5.90) m/uL Hgb 18.2 H (13.0-17.5) gm/dL Hct 51.2 (39.0-53.0) % MCV 91.0 (80.0-100.0) fL MCH 32.3 (25.0-35.0) pg MCHC 35.5 (31.0-37.0) g/dL RDW 12.3 (11.5-15.5) % Plt Count 232 (150-450) k/uL MPV 7.8 Neutrophils % 72 % Lymphocytes % 19 % Monocytes % 6 % Eosinophils % 1 % Basophils % 1 % Neutrophils # 5.8 (1.3-7.7) k/uL Lymphocytes # 1.5 (1.0-4.8) k/uL Monocytes # 0.5 (0-1.0) k/uL Eosinophils # 0.1 (0-0.7) k/uL Basophils # 0.1 (0-0.2) k/uL Sodium 142 (137-145) mmol/L Potassium 4.5 (3.5-5.1) mmol/L Chloride 102 (98-107) mmol/L Carbon Dioxide 30 (22-30) mmol/L Anion Gap 10 mmol/L BUN 10 (9-20) mg/dL Creatinine 1.15 (0.66-1.25) mg/dL Est GFR (CKD-EPI)AfAm >90 (>60 ml/min/1.73 sqM) Est GFR (CKD-EPI)NonAf 79 (>60 ml/min/1.73 sqM) Glucose 103 H (74-99) mg/dL Plasma Lactic Acid Ezequiel 1.5 (0.7-2.0) mmol/L Calcium 9.6 (8.4-10.2) mg/dL Total Bilirubin 0.9 (0.2-1.3) mg/dL AST 33 (17-59) U/L ALT 34 (4-49) U/L Alkaline Phosphatase 96 (38-126) U/L Total Protein 8.4 H (6.3-8.2) g/dL Albumin 5.1 H (3.5-5.0) g/dL Amylase 41 (30-110) U/L Lipase 71 (23-300) U/L Urine Color Urine Appearance (Clear) Urine pH (5.0-8.0) Ur Specific [place] (1.001-1.035) Urine Protein (Negative) Urine Glucose (UA) (Negative) Urine Ketones (Negative) Urine Blood (Negative) Urine Nitrite (Negative) Urine Bilirubin (Negative) Urine Urobilinogen (<2.0) mg/dL Ur Leukocyte Esterase (Negative) Urine RBC (0-5) /hpf Urine WBC (0-5) /hpf Hyaline Casts (0-2) /lpf Urine Mucus (None) /hpf Coronavirus (PCR) (Not Detectd) Influenza Type A RNA (Not Detectd) Influenza Type B (PCR) (Not Detectd) 07/09/22 07/09/22 07/09/22 Range/Units 20:22 20:31 20:31 WBC (3.8-10.6) k/uL RBC (4.30-5.90) m/uL Hgb (13.0-17.5) gm/dL Hct (39.0-53.0) % MCV (80.0-100.0) fL MCH (25.0-35.0) pg MCHC (31.0-37.0) g/dL RDW (11.5-15.5) % Plt Count (150-450) k/uL MPV Neutrophils % % Lymphocytes % % Monocytes % % Eosinophils % % Basophils % % Neutrophils # (1.3-7.7) k/uL Lymphocytes # (1.0-4.8) k/uL Monocytes # (0-1.0) k/uL Eosinophils # (0-0.7) k/uL Basophils # (0-0.2) k/uL Sodium (137-145) mmol/L Potassium (3.5-5.1) mmol/L Chloride (98-107) mmol/L Carbon Dioxide (22-30) mmol/L Anion Gap mmol/L BUN (9-20) mg/dL Creatinine (0.66-1.25) mg/dL Est GFR (CKD-EPI)AfAm (>60 ml/min/1.73 sqM) Est GFR (CKD-EPI)NonAf (>60 ml/min/1.73 sqM) Glucose (74-99) mg/dL Plasma Lactic Acid Ezequiel (0.7-2.0) mmol/L Calcium (8.4-10.2) mg/dL Total Bilirubin (0.2-1.3) mg/dL AST (17-59) U/L ALT (4-49) U/L Alkaline Phosphatase (38-126) U/L Total Protein (6.3-8.2) g/dL Albumin (3.5-5.0) g/dL Amylase (30-110) U/L Lipase (23-300) U/L Urine Color Yellow Urine Appearance Clear (Clear) Urine pH 7.0 (5.0-8.0) Ur Specific [place] 1.035 (1.001-1.035) Urine Protein 1+ H (Negative) Urine Glucose (UA) Negative (Negative) Urine Ketones 1+ H (Negative) Urine Blood Negative (Negative) Urine Nitrite Negative (Negative) Urine Bilirubin Negative (Negative) Urine Urobilinogen <2.0 (<2.0) mg/dL Ur Leukocyte Esterase Negative (Negative) Urine RBC 2 (0-5) /hpf Urine WBC 1 (0-5) /hpf Hyaline Casts 3 H (0-2) /lpf Urine Mucus Moderate H (None) /hpf Coronavirus (PCR) Not Detected (Not Detectd) Influenza Type A RNA Not Detected (Not Detectd) Influenza Type B (PCR) Not Detected (Not Detectd) Disposition Clinical Impression: Nausea Disposition: HOME SELF-CARE Condition: Good Instructions (If sedation given, give patient instructions): Acute Nausea and Vomiting (ED) Prescriptions: Ondansetron Odt [Zofran Odt] 4 mg PO Q8HR PRN #6 tab PRN Reason: Nausea Is patient prescribed a controlled substance at d/c from ED?: No Referrals: Gracie Zhao MD [Primary Care Provider] - 1-2 days Time of Disposition: 21:30
== END 2022-07-09 22:57 | disposition home or self-care (01) ==
LOC: EC 18:28
DX: R11.2 Nausea with vomiting, unspecified (principal); K21.9 Gastro-esophageal reflux disease without esophagitis; E07.9 Disorder of thyroid, unspecified; Z79.890 Hormone replacement therapy; Z79.899 Other long term (current) drug therapy; Z20.822 Contact with and (suspected) exposure to COVID-19
CPT/HCPCS: 36415; 80053; 82150; 83605; 83690; 85025; 81001; 87502; 87635; 99284; 96374; 96361; J2405

== ENCOUNTER 2023-03-02 20:45 | Emergency (ER) | payer MEDICARE, OTHER ==
[2023-03-02 21:08] VITALS: BP 159/102; PULSE 109; RESP 18; TEMP 98.5
--- NOTE | 2023-03-02 22:13 | ED ---
Male Urogenital HPI - General Chief complaint: Urogenital Stated complaint: Unable to urniate, Genital Pain Time Seen by Provider: 03/02/23 21:19 Source: patient Mode of arrival: ambulatory - History of Present Illness Initial comments: This patient is a 43-year-old man who arrives in the company of his father. History comes from both. The patient was in a local restaurant tonight and then began to have dysuria. He has no history of previous urologic issues. There were no other complaints. No fever or chills. No abdominal pain. No back pain. Patient denies testicular pain or swelling. MD Complaint: dysuria Onset/Timin -: hour(s) Location: penis Radiation: none Quality: burning Consistency: intermittent Improves with: none Worsens with: urination Reports: denies other symptoms - Related Data Home Medications Medication Instructions Recorded Confirmed Levothyroxine Sodium [Synthroid] 50 mcg PO DAILY 09/02/14 06/27/21 Dicyclomine [Bentyl] 20 mg PO BID 10/23/18 06/27/21 Ergocalciferol (Vitamin D2) 1,250 mcg PO Q7D 06/27/21 06/27/21 [Drisdol (50,000 Iu)] Famotidine [Pepcid] 20 mg PO HS PRN 06/27/21 06/27/21 Pantoprazole [Protonix] 40 mg PO DAILY 06/27/21 06/27/21 Previous Rx's Medication Instructions Recorded Ondansetron Odt [Zofran Odt] 4 mg PO Q8HR PRN #12 tab 06/30/21 traMADol HCl [Ultram] 50 mg PO BID 3 Days #10 tab 06/30/21 Hyoscyamine Sulfate [Levsin] 0.125 mg PO TID PRN #12 tablet 07/05/22 Ondansetron Odt [Zofran Odt] 4 mg PO Q8HR PRN #6 tab 07/09/22 Tamsulosin [Flomax] 0.4 mg PO DAILY #7 cap 03/03/23 Amoxic-Pot Clav 875-125Mg 1 tab PO BID 5 Days #10 tab 03/05/23 [Augmentin 875-125] Ibuprofen [Motrin] 800 mg PO Q8HR PRN #30 tab 03/05/23 Allergies Allergy/AdvReac Type Severity Reaction Status Date / Time No Known Allergies Allergy Verified 03/03/23 09:01 Review of Systems ROS Statement: Those systems with pertinent positive or pertinent negative responses have been documented in the HPI. ROS Other: All systems not noted in ROS Statement are negative. Constitutional: Denies: fever, chills Respiratory: Denies: cough Cardiovascular: Denies: chest pain Gastrointestinal: Denies: abdominal pain, nausea, vomiting, diarrhea, constipation Genitourinary: Reports: dysuria. 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 ABDOMINAL PAIN , KIDNEY CANCER seeing Dr. Paul for abd pain for 4 months History of Any Multi-Drug Resistant Organisms: None Reported Past Surgical History: Cholecystectomy Additional Past Surgical History / Comment(s): KIDNEY SURGERY-MASS REMOVED Past Anesthesia/Blood Transfusion Reactions: Previous Problems w/ Anesthesia Additional Past Anesthesia/Blood Transfusion Reaction / Comment(s): DIFFICULT INTUBATION Past Psychological History: No Psychological Hx Reported Smoking Status: Never smoker Past Alcohol Use History: None Reported Past Drug Use History: None Reported - Past Family History Mother History Unknown: Yes Family Medical History: No Reported History Father Family Medical History: Diabetes Mellitus Additional Family Medical History / Comment(s): neuropathy General Exam General appearance: alert, in no apparent distress Head exam: Present: atraumatic, normocephalic Respiratory exam: Present: normal lung sounds bilaterally. Absent: respiratory distress, wheezes, rales, rhonchi, stridor Cardiovascular Exam: Present: regular rate, normal rhythm, normal heart sounds. Absent: systolic murmur, diastolic murmur, rubs, gallop GI/Abdominal exam: Present: soft. Absent: distended, tenderness, guarding, rebound, rigid, mass, pulsatile mass, hernia exam: Present: normal inspection, vertical testicular lie, circumcision. Absent: testicular tenderness, urethral discharge, scrotal swelling Extremities exam: Present: normal inspection, normal capillary refill Back exam: Absent: CVA tenderness (R), CVA tenderness (L) Neurological exam: Present: alert Skin exam: Present: warm, dry, intact, normal color. Absent: rash Course Vital Signs 03/02/23 21:03 Temperature 98.5 F Pulse Rate 109 H Respiratory 18 Rate Blood Pressure 159/102 O2 Sat by Pulse 97 Oximetry Medical Decision Making - Medical Decision Making This patient is a 43-year-old man presenting to have evaluation for pain related to last attempted urination. The workup here does reveal some degree of urinary retention. The patient's had relief of symptoms with catheter placement. The patient will be discharged with the catheter in place and have follow-up with urology. No evidence of infection based and the urinalysis here. Discussed appropriate further care and follow-up as well as return parameters Was pt. sent in by a medical professional or institution (, PA, PRIVATE DUTY LPN, urgent care, hospital, or penitentiary...) When possible be specific @ -[No] Did you speak to anyone other than the patient for history (EMS, parent, family, police, friend...)? What history was obtained from this source @ -[No] Did you review nursing and triage notes (agree or disagree)? Why? @ -[I reviewed and agree with nursing and triage notes] Were old charts reviewed (outside hosp., previous admission, EMS record, old EKG, old radiological studies, urgent care reports/EKG's, penitentiary records)? Report findings @ -[No old charts were reviewed] Differential Diagnosis (chest pain, altered mental status, abdominal pain women, abdominal pain men, vaginal bleeding, weakness, fever, dyspnea, syncope, headache, dizziness, GI bleed, back pain, seizure, CVA, palpatations, mental health, musculoskeletal)? @ -[Differential diagnosis for dysuria includes urinary tract infection, urethritis, mechanical trauma, urinary retention, rash at the ureteral meatus, a mongst other conditions EKG interpreted by me (3pts min.). @ -[ X-rays interpreted by me (1pt min.). @ -[None done] CT interpreted by me (1pt min.). @ -[None done] U/S interpreted by me (1pt. min.). @ -[None done] What testing was considered but not performed or refused? (CT, X-rays, U/S, labs)? Why? @ -[None] What meds were considered but not given or refused? Why? @ -[None] Did you discuss the management of the patient with other professionals (pro fessionals i.e. , PA, PRIVATE DUT[employer] LPN, lab, RT, psych nurse, social science professor, banking paralegal, teacher, medical laboratory technical officer, piano case maker)? Give summary @ -[No] Was smoking cessation discussed for >3mins.? @ -[No] Was critical care preformed (if so, how long)? @ -[No] Were there social determinants of health that impacted care today? How? (Homelessness, low income, unemployed, alcoholism, drug addiction, brenner sportation, low edu. Level, literacy, decrease access to med. care, [facility], rehab)? @ -[No] Was there de-escalation of care discussed even if they declined (Discuss DNR or withdrawal of care, Hospice)? DNR status @ -[No] What co-morbidities impacted this encounter? (DM, HTN, Smoking, COPD, CAD, Cancer, CVA, ARF, Chemo, Hep., AIDS, mental health diagnosis, sleep apnea, morbid obesity)? @ -[None] Was patient admitted / discharged? Hospital course, mention meds given and route, prescriptions, significant lab abnormalities, going to OR and other pertinent info. @ -[Discharged, as above Undiagnosed new problem with uncertain prognosis? @ -[No] Drug Therapy requiring intensive monitoring for toxicity (Heparin, Nitro, Insulin, Cardizem)? @ -[No] Were any procedures done? @ -[No] Diagnosis/symptom? @ -[Acute urinary retention Acute, or Chronic, or Acute on Chronic? @ -[default] Uncomplicated (without systemic symptoms) or Complicated (systemic symptoms)? @ -[Uncomplicated Side effects of treatment? @ -[No] Exacerbation, Progression, or Severe Exacerbation? @ -[No] Poses a threat to life or bodily function? How? (Chest pain, USA, CA, pneumonia, PE, COPD, DKA, ARF, appy, cholecystitis, CVA, Diverticulitis, Homicidal, Suicidal, threat to staff... and all critical care pts) @ -[No] - Lab Data Result diagrams: 03/02/23 23:06 03/02/23 23:06 Lab Results 03/02/23 03/02/23 03/02/23 Range/Units 22:47 23:06 23:06 WBC 12.4 H (3.8-10.6) k/uL RBC 5.36 (4.30-5.90) m/uL Hgb 16.8 (13.0-17.5) gm/dL Hct 49.5 (39.0-53.0) % MCV 92.5 (80.0-100.0) fL MCH 31.4 (25.0-35.0) pg MCHC 33.9 (31.0-37.0) g/dL RDW 13.1 (11.5-15.5) % Plt Count 237 (150-450) k/uL MPV 7.4 Neutrophils % 86 % Lymphocytes % 8 % Monocytes % 4 % Eosinophils % 1 % Basophils % 0 % Neutrophils # 10.7 H (1.3-7.7) k/uL Lymphocytes # 1.0 (1.0-4.8) k/uL Monocytes # 0.5 (0-1.0) k/uL Eosinophils # 0.1 (0-0.7) k/uL Basophils # 0.0 (0-0.2) k/uL Sodium 139 (137-145) mmol/L Potassium 4.6 (3.5-5.1) mmol/L Chloride 101 (98-107) mmol/L Carbon Dioxide 29 (22-30) mmol/L Anion Gap 9 mmol/L BUN 12 (9-20) mg/dL Creatinine 0.85 (0.66-1.25) mg/dL Est GFR (CKD-EPI)AfAm >90 (>60 ml/min/1.73 sqM) Est GFR (CKD-EPI)NonAf >90 (>60 ml/min/1.73 sqM) Glucose 142 H (74-99) mg/dL Calcium 9.2 (8.4-10.2) mg/dL Total Bilirubin 0.6 (0.2-1.3) mg/dL AST 30 (17-59) U/L ALT 29 (4-49) U/L Alkaline Phosphatase 71 (38-126) U/L Total Protein 7.9 (6.3-8.2) g/dL Albumin 4.5 (3.5-5.0) g/dL Urine Color Light Yellow Urine Appearance Clear (Clear) Urine pH 5.5 (5.0-8.0) Ur Specific [place] 1.011 (1.001-1.035) Urine Protein Negative (Negative) Urine Glucose (UA) 3+ H (Negative) Urine Ketones Negative (Negative) Urine Blood Negative (Negative) Urine Nitrite Negative (Negative) Urine Bilirubin Negative (Negative) Urine Urobilinogen <2.0 (<2.0) mg/dL Ur Leukocyte Esterase Negative (Negative) Disposition Clinical Impression: Urinary retention Disposition: HOME SELF-CARE Condition: Good Instructions (If sedation given, give patient instructions): Urinary Retention in Men (ED) Is patient prescribed a controlled substance at d/c from ED?: No Referrals: Gracie Zhao MD [Primary Care Provider] - 1-2 days Davon Leblanc MD [STAFF PHYSICIAN] - 1-2 days
[2023-03-02 22:59] LABS: Appearance,Urine Clear (Clear); Bilirubin,Urine Negative (Negative); Blood,Urine Negative (Negative); Color,Urine Light Yellow; Glucose,Urine (UA) 3+ (Negative); Ketones,Urine Negative (Negative); Leukocyte Esterase,Urine Negative (Negative); Nitrite,Urine Negative (Negative); PH, Urine 5.5 (5.0-8.0); Protein,Urine Negative (Negative); Specific Gravity,Urine 1.011 (1.001-1.035); Urobilinogen,Urine <2.0 mg/dL (<2.0)
[2023-03-02 23:13] LABS: Basophils % (A) 0 %; Eosinophils # (A) 0.1 k/uL (0-0.7); Eosinophils % (A) 1 %; HCT 49.5 % (39.0-53.0); HGB 16.8 gm/dL (13.0-17.5); Lymphocytes % (A) 8 %; MCH 31.4 pg (25.0-35.0); MCHC 33.9 g/dL (31.0-37.0); MCV 92.5 fL (80.0-100.0); Mean Platelet Volume 7.4; Monocytes # (A) 0.5 k/uL (0-1.0); Monocytes % (A) 4 %; Neutrophils # (A) 10.7 k/uL (1.3-7.7); Neutrophils % (A) 86 %; Platelet Count 237 k/uL (150-450); RBC 5.36 m/uL (4.30-5.90); RDW 13.1 % (11.5-15.5); WBC 12.4 k/uL (3.8-10.6)
[2023-03-02 23:28] LABS: ALT 29 U/L (4-49); AST 30 U/L (17-59); African American GFR (CKD) >90 (>60 ml/min/1.73 sqM); Albumin 4.5 g/dL (3.5-5.0); Alkaline Phosphatase 71 U/L (38-126); Anion Gap 9 mmol/L; Blood Urea Nitrogen 12 mg/dL (9-20); Calcium 9.2 mg/dL (8.4-10.2); Carbon Dioxide 29 mmol/L (22-30); Chloride 101 mmol/L (98-107); Glucose 142 mg/dL (74-99); Non-African American GFR(CKD) >90 (>60 ml/min/1.73 sqM); Potassium 4.6 mmol/L (3.5-5.1); Sodium 139 mmol/L (137-145); Total Bilirubin 0.6 mg/dL (0.2-1.3); Total Protein 7.9 g/dL (6.3-8.2)
== END 2023-03-03 00:24 | disposition home or self-care (01) ==
LOC: EC 20:45
DX: R33.9 Retention of urine, unspecified (principal); K21.9 Gastro-esophageal reflux disease without esophagitis; E07.9 Disorder of thyroid, unspecified; Z79.890 Hormone replacement therapy; Z79.899 Other long term (current) drug therapy
CPT/HCPCS: 36415; 80053; 81003; 85025; 99283

== ENCOUNTER 2023-03-03 08:59 | Emergency (ER) | payer MEDICARE, OTHER ==
--- NOTE | 2023-03-03 09:17 | ED ---
Male Urogenital HPI - General Chief complaint: Urogenital Stated complaint: male Time Seen by Provider: 03/03/23 09:05 Source: patient, RN notes reviewed Mode of arrival: ambulatory Limitations: no limitations - History of Present Illness Initial comments: 43-year-old male presents emergency Department with chief complaint of unable to urinate. Patient states that he seen here last night has straight cath performed he had a urinalysis and labs or studies which were unremarkable. Patient states he is been unable to urinate ever since and feels pressure from this. Patient states he has seen Dr. Rivera in the past. - Related Data Home Medications Medication Instructions Recorded Confirmed Levothyroxine Sodium [Synthroid] 50 mcg PO DAILY 09/02/14 06/27/21 Dicyclomine [Bentyl] 20 mg PO BID 10/23/18 06/27/21 Ergocalciferol (Vitamin D2) 1,250 mcg PO Q7D 06/27/21 06/27/21 [Drisdol (50,000 Iu)] Famotidine [Pepcid] 20 mg PO HS PRN 06/27/21 06/27/21 Pantoprazole [Protonix] 40 mg PO DAILY 06/27/21 06/27/21 Previous Rx's Medication Instructions Recorded Ondansetron Odt [Zofran Odt] 4 mg PO Q8HR PRN #12 tab 06/30/21 traMADol HCl [Ultram] 50 mg PO BID 3 Days #10 tab 06/30/21 Hyoscyamine Sulfate [Levsin] 0.125 mg PO TID PRN #12 tablet 07/05/22 Ondansetron Odt [Zofran Odt] 4 mg PO Q8HR PRN #6 tab 07/09/22 Tamsulosin [Flomax] 0.4 mg PO DAILY #7 cap 03/03/23 Allergies Allergy/AdvReac Type Severity Reaction Status Date / Time No Known Allergies Allergy Verified 03/03/23 09:01 Review of Systems ROS Statement: Those systems with pertinent positive or pertinent negative responses have been documented in the HPI. ROS Other: All systems not noted in ROS Statement are negative. 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 ABDOMINAL PAIN , KIDNEY CANCER seeing Dr. Paul for abd pain for 4 months History of Any Multi-Drug Resistant Organisms: None Reported Past Surgical History: Cholecystectomy Additional Past Surgical History / Comment(s): KIDNEY SURGERY-MASS REMOVED Past Anesthesia/Blood Transfusion Reactions: Previous Problems w/ Anesthesia Additional Past Anesthesia/Blood Transfusion Reaction / Comment(s): DIFFICULT INTUBATION Past Psychological History: No Psychological Hx Reported Smoking Status: Never smoker Past Alcohol Use History: None Reported Past Drug Use History: None Reported - Past Family History Mother History Unknown: Yes Family Medical History: No Reported History Father Family Medical History: Diabetes Mellitus Additional Family Medical History / Comment(s): neuropathy General Exam Limitations: no limitations General appearance: alert, in no apparent distress Head exam: Present: atraumatic, normocephalic, normal inspection Respiratory exam: Present: normal lung sounds bilaterally. Absent: respiratory distress, wheezes, rales, rhonchi, stridor Cardiovascular Exam: Present: regular rate, normal rhythm, normal heart sounds. Absent: systolic murmur, diastolic murmur, rubs, gallop, clicks GI/Abdominal exam: Present: soft, tenderness, normal bowel sounds. Absent: dis tended, guarding, rebound, rigid Course Vital Signs 03/03/23 09:01 Temperature 97.7 F Pulse Rate 100 Respiratory 18 Rate Blood Pressure 153/109 O2 Sat by Pulse 97 Oximetry Medical Decision Making - Medical Decision Making Was pt. sent in by a medical professional or institution ([facility], [facility], urgent care, hospital, or penitentiary...) When possible be specific @ -No Did you speak to anyone other than the patient for history (EMS, parent, family, police, friend...)? What history was obtained from this source @ -No Did you review nursing and triage notes (agree or disagree)? Why? @ -I reviewed and agree with nursing and triage notes Were old charts reviewed (outside hosp., previous admission, EMS record, old EKG, old radiological studies, urgent care reports/EKG's, penitentiary records)? Report findings @ -Review labs, urinalysis from last night Differential Diagnosis (chest pain, altered mental status, abdominal pain women, abdominal pain men, vaginal bleeding, weakness, fever, dyspnea, syncope, headache, dizziness, GI bleed, back pain, seizure, CVA, palpatations, mental health, musculoskeletal)? @ -UTI, urinary retention, prostatitis EKG interpreted by me (3pts min.). @ -None X-rays interpreted by me (1pt min.). @ -None done CT interpreted by me (1pt min.). @ -None done U/S interpreted by me (1pt. min.). @ -None done What testing was considered but not performed or refused? (CT, X-rays, U/S, labs)? Why? @ -None What meds were considered but not given or refused? Why? @ -None Did you discuss the management of the patient with other professionals (professionals i.e. Dr., PA, [employer] C[employer]TER, lab, RT, psych nurse, social insurance adviser, military lawyer, teacher, law enforcement officer, case consultant)? Give summary @ -No Was smoking cessation discussed for >3mins.? @ -No Was critical care preformed (if so, how long)? @ -No Were there social determinants of health that impacted care today? How? (Homelessness, low income, unemployed, alcoholism, drug addiction, transportation, low edu. Level, literacy, decrease access to med. care, custodial, rehab)? @ -No Was there de-escalation of care discussed even if they declined (Discuss DNR or withdrawal of care, Hospice)? DNR status @ -No What co-morbidities impacted this encounter? (DM, HTN, Smoking, COPD, CAD, Cance r, CVA, ARF, Chemo, Hep., AIDS, mental health diagnosis, sleep apnea, morbid obesity)? @ -None Was patient admitted / discharged? Hospital course, mention meds given and route, prescriptions, significant lab abnormalities, going to OR and other pertinent info. @ -Discharged with Wynn catheter patient will follow-up with urology return parameters were discussed. Undiagnosed new problem with uncertain prognosis? @ -No Drug Therapy requiring intensive monitoring for toxicity (Heparin, Nitro, Insulin, Cardizem)? @ -No Were any procedures done? @ -No Diagnosis/symptom? @ -Urinary retention Acute, or Chronic, or Acute on Chronic? @ -Acute Uncomplicated (without systemic symptoms) or Complicated (systemic symptoms)? @ -Uncomplicated Side effects of treatment? @ -No Exacerbation, Progression, or Severe Exacerbation? @ -No Poses a threat to life or bodily function? How? (Chest pain, USA, ME, pneumonia, PE, COPD, DKA, ARF, appy, cholecystitis, CVA, Diverticulitis, Homicidal, Suicidal, threat to staff... and all critical care pts) @ -No Disposition Clinical Impression: Urinary retention Disposition: HOME SELF-CARE Condition: Stable Instructions (If sedation given, give patient instructions): Urinary Retention in Men (ED) Additional Instructions: Please return to the Emergency Department if symptoms worsen or any other concerns. Prescriptions: Tamsulosin [Flomax] 0.4 mg PO DAILY #7 cap Is patient prescribed a controlled substance at d/c from ED?: No Referrals: Gracie Zhao MD [Primary Care Provider] - 1-2 days Dg Leal MD [STAFF PHYSICIAN] - 1-2 days Time of Disposition: 09:17
[2023-03-03 09:57] VITALS: BP 153/98; PULSE 92; RESP 16; TEMP 98
== END 2023-03-03 09:59 | disposition home or self-care (01) ==
LOC: EC 08:59
DX: R33.9 Retention of urine, unspecified (principal); K21.9 Gastro-esophageal reflux disease without esophagitis; E07.9 Disorder of thyroid, unspecified; Z79.890 Hormone replacement therapy; Z79.899 Other long term (current) drug therapy
CPT/HCPCS: 51702; 99283

== ENCOUNTER → 2024-03-07 | Outpatient (CLI) | payer MEDICARE, OTHER ==
--- NOTE | 2024-03-07 12:16 | CT ---
EXAMINATION TYPE: CT abdomen pelvis wo con CT DLP: 648.9 mGycm, Automated exposure control for dose reduction was used. DATE OF EXAM: 03/07/2024 11:55 AM COMPARISON: CT abdomen pelvis most recent from 03/23/2023, 07/04/2022. CLINICAL INDICATION:Male, 44 years old with history of R10.84 abdominal pain; Abdominal pain x1 week. TECHNIQUE: Standard CT of the abdomen and pelvis without IV or oral contrast. Lack of IV or oral co ntrast limits evaluation of solid and hollow organ viscera. Coronal and sagittal reformats were perfo rmed. FINDINGS: LOWER CHEST: Unremarkable ABDOMEN LIVER: Unremarkable GALLBLADDER AND BILE DUCTS: The gallbladder is surgically absent. PANCREAS: Unremarkable. SPLEEN: Unremarkable. ADRENAL GLANDS: Unremarkable. KIDNEYS AND URETERS: No evidence of hydronephrosis or renal calculus. The ureters are unremarkable. PELVIS BLADDER: Incompletely distended but grossly unremarkable. REPRODUCTIVE: Unremarkable. ABDOMEN & PELVIS STOMACH AND BOWEL: Stomach and duodenum are unremarkable. Redundant sigmoid colon. Mild to moderate s tools present throughout the colon. No focal bowel wall thickening or surrounding inflammatory change s. The appendix is within normal limits. Few sigmoid diverticulosis. No evidence of bowel obstruction . PERITONEUM: No evidence of pneumoperitoneum or free fluid. VASCULATURE: No evidence of aortic aneurysm. Pelvic phleboliths. MUSCULOSKELETAL: No acute osseous abnormalities LYMPH NODES: No gross evidence for lymphadenopathy. SOFT TISSUE/ABDOMINAL WALL: Unremarkable IMPRESSION: 1. No evidence for acute abdominal/pelvic process within the limitations of a noncontrast exam. 2. Colonic diverticulosis without evidence for acute diverticulitis.
== END | disposition home or self-care (01) ==
LOC: RADCTMAIN 11:36
PROVIDERS: ATTEND Family Medicine
DX: K57.30 Diverticulosis of large intestine without perforation or abscess without bleeding (principal)
CPT/HCPCS: 74176

== ENCOUNTER → 2024-03-27 | Outpatient (CLI) | payer MEDICARE, OTHER ==
[2024-03-27 16:07] VITALS: BP 128/88; PULSE 93; RESP 16; TEMP 98
--- NOTE | 2024-03-27 17:08 | P.SLEEP ---
History of Present Illness DATE: 03/27/2024 CONSULTATION/NEW PATIENT EVALUATION HISTORY OF PRESENT ILLNESS/SLEEP-WAKE EVALUATION: 44-year-old gentleman had b een evaluated in the sleep center for possible obstructive sleep apnea hypopnea syndrome. SLEEP SCHEDULE: Usually sleep schedule from 8:30 PM to 6:30 AM on weekdays and from 8:45 PM to 10 AM on weekend. FALLING ASLEEP: Sometimes patient has difficulties with falling asleep, has TV set in bedroom. DURING SLEEP: Patient usually sleeps on the side position with snoring and awakenings from sleep 4 times with dry mouth, sweating, nocturia, heartburn. No history of hypnogogical hallucinations, sleep paralysis, or cataplexy. DURING THE DAY/WAKE STATE: In the morning patient wake up tired, has di fficulties to pay attention, falling asleep during the day. [place] sleepiness scale is an extremely high range of 19. Patient takes nap at 6 PM. PAST MEDICAL HISTORY: Developmental disability, acid reflux, hypothyroidism, hyperlipidemia, headaches. PAST SURGICAL HISTORY: Kidney surgery, cholecystectomy. MEDICATIONS: Please see below. SOCIAL HISTORY: Please see below. FAMILY HISTORY: Parkinson's disease, snoring. REVIEW OF SYSTEMS: Snoring, multiple awakenings from sleep, sleepiness during the day. No fevers. No double vision. No recent chest pain. No shortness of breath. No abdominal pain. No bleeding episodes. No blood in urine. No seizure episodes. PHYSICAL EXAMINATION: GENERAL: A pleasant patient without any distress. VITAL SIGNS: Please see below, weight 207.0 pounds, BMI 28.8. HEENT: PERRLA, EOMI. Evaluation of oropharynx showed tongue protrudes midline, low position of soft palate Mallampati 4. NECK: Supple. No JVD. Thyroid is not palpable. 17-3/4 inches in circumference. LUNGS: Clear to percussion and to auscultation. Good air exchange. No wheezing or rhonchi. HEART: S1, S2 regular. No murmurs, gallops or rubs. ABDOMEN: Soft and nontender. Bowel sounds are present. No organomegaly appreciated. EXTREMITIES: No clubbing or cyanosis. DECATING MACHINE OPERATOR: Awake, alert, and oriented x3. Cranial nerves 2 to 7 intact. There is no fasciculation or atrophy noted. No focal deficits observed. ASSESSMENT: 1. Snoring, multiple awakenings from sleep, extremely low position of soft palate Mallampati 4, wide neck 17 and three-quarter inches in circumference, significant excessive daytime sleepiness. Obstructive sleep apnea hypopnea syndrome. 2. Significant excessive daytime sleepiness with [place] Sleepiness Scale of 19 dictates necessity to include hypersomnia and narcolepsy and differential diagnosis. 3. Developmental disability. 4. Hypothyroidism. 5. Acid reflux. 6 . Hyperlipidemia. 7. Status post kidney surgery. 8. Status post cholecystectomy. 9. Headaches PLAN: 1. Polysomnography for evaluation of patient's breathing during sleep. 2. Following plan after reading sleep study. 3. Preferable position during sleep on the side. 4. No driving if patient feels any sleepiness. Patient is aware of civil and criminal liability for unsafe driving. 5. Pounds sleep hygiene with regular sleep time for at least 7.5- 8 hours. 6. Watching weight. Thank you very much for referring this patient for consultation. Sincerely, Justin Franks MD, PhD, FAASM. 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 ABDOMINAL PAIN , KIDNEY CANCER seeing Dr. Paul for abd pain for 4 months, HEADACHES, SNORING (03/27/24 PTS [employer]AX SERVICES INTERN FROM [facility] WITH PATIENT ILIANA SOLIS) History of Any Multi-Drug Resistant Organisms: None Reported Past Surgical History: Cholecystectomy Additional Past Surgical History / Comment(s): KIDNEY SURGERY-MASS REMOVED 2016, URINARY ISSUES ABOUT A YEAR AGO - HAD CATHETER FOR A COUPLE MONTHS OR SO. Past Anesthesia/Blood Transfusion Reactions: Previous Problems w/ Anesthesia Additional Past Anesthesia/Blood Transfusion Reaction / Comment(s): DIFFICULT INTUBATION Past Psychological History: Anxiety Additional Psychological History / Comment(s): DEVELOPMENTALLY DELAYED -, SITUATIONAL ANXIETY PER [employer] SERVICES INTERN Smoking Status: Never smoker Past Alcohol Use History: None Reported Past Drug Use History: None Reported - Past Family History Mother History Unknown: Yes Family Medical History: No Reported History Father Family Medical History: Diabetes Mellitus Additional Family Medical History / Comment(s): neuropathy, PARKINSONS, SNORING Medications and Allergies Home Medications Medication Instructions Recorded Confirmed Type Levothyroxine Sodium [Synthroid] 50 mcg PO DAILY 09/02/14 03/27/24 History Dicyclomine [Bentyl] 10 mg PO DAILY 10/23/18 03/27/24 History Ergocalciferol (Vitamin D2) 1.25 mg PO Q7D 06/27/21 03/27/24 History [Drisdol (50,000 Iu)] Famotidine [Pepcid] 20 mg PO HS PRN 06/27/21 03/27/24 History Pantoprazole [Protonix] 40 mg PO DAILY 06/27/21 03/27/24 History Ondansetron Odt [Zofran Odt] 4 mg PO Q8HR PRN #12 tab 06/30/21 Rx traMADol HCl [Ultram] 50 mg PO BID 3 Days #10 tab 06/30/21 Rx Hyoscyamine Sulfate [Levsin] 0.125 mg PO TID PRN #12 tablet 07/05/22 Rx Ondansetron Odt [Zofran Odt] 4 mg PO Q8HR PRN #6 tab 07/09/22 Rx Tamsulosin [Flomax] 0.4 mg PO DAILY #7 cap 03/03/23 03/27/24 Rx Amoxic-Pot Clav 875-125Mg 1 tab PO BID 5 Days #10 tab 03/05/23 Rx [Augmentin 875-125] Ibuprofen [Motrin] 800 mg PO Q8HR PRN #30 tab 03/05/23 Rx Cephalexin [Keflex] 500 mg PO BID #14 cap 03/23/23 Rx Pravastatin Sodium [Pravachol] 40 mg PO DAILY 03/27/24 03/27/24 History Allergies Allergy/AdvReac Type Severity Reaction Status Date / Time No Known Allergies Allergy Verified 03/23/23 13:28 Physical Exam Vitals: Vital Signs Temp Pulse Resp BP Pulse Ox 03/27/24 16:06 98.0 F 93 16 128/88 95 Intake and Output 03/27/24 03/27/24 03/27/24 06:59 14:59 22:59 Other: Weight 93.894 kg Sleep Note - Sleep Data ESS Total: 19 - Sleep Note Sleep Note: Temperature: 98.0 F Pulse Rate: 93 Respiratory Rate: 16 Blood Pressure: 128/88 SpO2: 95 Height: 5 ft 11 in Weight: 93.894 kg BMI: Neck Circumference: 17.7
== END ==
LOC: 3 N SLEEP 15:10
PROVIDERS: ATTEND Internal Medicine
DX: G47.33 Obstructive sleep apnea (adult) (pediatric) (principal); F89 Unspecified disorder of psychological development; E03.9 Hypothyroidism, unspecified; K21.9 Gastro-esophageal reflux disease without esophagitis; E78.5 Hyperlipidemia, unspecified; R51.9 Headache, unspecified; Z98.890 Other specified postprocedural states; Z90.49 Acquired absence of other specified parts of digestive tract; Z79.890 Hormone replacement therapy
CPT/HCPCS: 99211

== ENCOUNTER 2024-04-25 19:26 | Outpatient (CLI) | payer MEDICARE, OTHER ==
--- NOTE | 2024-04-26 13:34 | P.PCN ---
Description of Procedure: POLYSOMNOGRAPHY REPORT PROCEDURE(S)/DATE(S): Polysomnography 04/25/2024 CLINICAL: Patient has been seen in the sleep center for evaluation of obstructive sleep apnea-hypopnea syndrome. Please see my consultation. Sleep study has been done for evaluation of patient breathing during the sleep. PROCEDURE: The standard montage for clinical polysomnography included the electroencephalogram, the electrooculogram, the mentalis surface electromyography and Lead II cardiography. The respiratory battery consisted of measurements of nasal/buccal air flow, pressure transducer measurements from nose, thoracic and/or abdominal effort and intercostal surface electromyography. Video monitoring has been done to check for any parasomnia events. Nocturnal oxyhemoglobin saturations were obtained by finger oximetry. Step-carrasquillo titration with positive airway pressure was utilized to control the respiratory events, if necessary. RESULTS: During the diagnostic sleep study sleep efficiency was normal 94.2%. Latency to sleep onset was normal at 13.0 min. Sleep architecture showed stage NI was short 0.4%, Delta sleep was normal 6.0%, REM sleep was shortened only 4.1%. Respiratory channel showed 0 obstructive apneas, 0 mixed apneas, 0 central apneas, 77 hypopneas with lowest oxygen level 76%. Total apnea hypopnea index was 11.5. Oxygen level was below 90% for more than 22 minutes. Heart rate was in the range between 41 and 91, average 54 by computer calculation. EMG showed 0 periodic limb movements per hour . IMPRESSIONS: 1. Obstructive sleep apnea hypopnea syndrome with symptoms of significant excessive daytime sleepiness. 2. No significant periodic limb movements have been documented. 3. History of developmental disability. Please see other impressions from consultation PLAN: 1. The patient will have PAP titration for correction of respiratory abnormalities during the sleep. 2. Watching weight . 3. Sleep hygiene with regular time in bed for at least 7-1/2 hours. 4. No driving if feeling sleepiness. Thank you very much for allowing me to participate in the management of your patient. Sincerely, Justin Franks MD, PhD, FAASM. Diplomat of [place] [employer], Sleep Medicine Board by [place] [employer] Radio Tester of [facility] [place]
== END 2024-04-26 06:00 | disposition home or self-care (01) ==
LOC: 3 N SLEEP 19:26
PROVIDERS: ATTEND Internal Medicine
CPT/HCPCS: 95810

== ENCOUNTER 2024-07-12 19:20 | Outpatient (CLI) | payer MEDICARE, OTHER ==
--- NOTE | 2024-07-24 14:09 | P.PCN ---
Description of Procedure: CLINICAL: Titration with positive air pressure has been done for correction of respiratory abnormalities during sleep. DESCRIPTION OF PROCEDURE: The standard montage for clinical polysomnography included the electroencephalogram, the electrocardiogram, the mentalis surface electromyography and Lead II cardiography. The respiratory battery consisted of measurements of nasal /buccal air flow, pressure transducer measurements from the nose, thoracic and /or abdominal effort and intercostal surface electromyography. Video monitoring has been done to check for any parasomnia events. Nocturnal oxyhemoglobin saturations were obtained by finger oximetry. Step-carrasquillo titration with positive airway pressure was utilized to control respiratory events. Raw data of sleep recording has been reviewed and is adequate. RESULTS: Sleep efficiency was significantly decreased to 62.5%. Latency to sleep onset was normal 18.0 minutes.]. Sleep architecture showed stage N1 was increased to 13.8%, Delta sleep was absent 0%, REM sleep was short 9.1%. Heart rate was minimum 52 BPM, maximum 64 BPM, average 56 BPM. EMG showed 0 periodic limb movements per hour. PAP titration have been done with CPAP up to the pressure 12 cm H2O. The best results were at the pressure 12 cm H2O. Apnea hypopnea index reduced to 0. IMPRESSION: 1. Obstructive sleep apnea hypopnea syndrome mostly on controle with PAP treatment. 2. No significant periodic limb movements have been documented. Please see other impressions from consultation. PLAN: 1. The patient will have treatment with positive air pressure equipment with the level of pressure Autopap 5-13 cm H2O and should use it every night for the whole night. 2. Watching weight. 3. Sleep hygiene with regular time in bed for at least 8 hours. 4. No driving if feeling any sleepiness. 5. I will see the patient for follow up visit to explain the results of the test, recommendations, check compliance with treatment and make any necessary adjustment related to mask fitting, pressure and humidification. Thank you very much for allowing me to participate in the management of your patient. Sincerely, Justin Franks MD, PhD, FAASM Diplomat of [place] [employer] Sleep Medicine Board of [place] [employer] Salesperson of [facility] [place] cc: Cece Bowman MD
== END 2024-07-13 07:18 | disposition home or self-care (01) ==
LOC: 3 N SLEEP 19:20
PROVIDERS: ATTEND Internal Medicine
DX: G47.33 Obstructive sleep apnea (adult) (pediatric) (principal)
CPT/HCPCS: 95811